=== PATIENT | male | born 1970 | race American Indian/Alaskan Native ===

== ENCOUNTER 2020-01-19 19:32 | Emergency (ER) | payer MEDICAID ==
[2020-01-19] MEDS ORDERED: ONDANSETRON 4 MG ODT TAB PO ONE (21:01)
--- NOTE | 2020-01-19 21:01 | Event Note ---
ED Screening Note Date of service: 01/19/20 Time: 20:57 ED Screening Note: This is a 49 y.o. M. with N/V for 1 week. PMH gout, DM2, CHF, HTN, CKD, and arthritis Unable to keep anything down after eating. This initial assessment/diagnostic orders/clinical plan/treatment(s) is/are subject to change based on patients health status, clinical progression and re- assessment by fellow clinical providers in the ED. Further treatment and workup at subsequent clinical providers discretion. Patient/guardian urged not to elope from the ED as their condition may be serious if not clinically assessed and managed. Initial orders include: Labs Given zofran 4 mg
[2020-01-19 21:37] LABS: Basophils # (Auto) 0.2 K/mm3 (0.0-0.1); Basophils % (Auto) 1.5 % (0.0-1.8); Eosinophils # (Auto) 0.2 K/mm3 (0.0-0.4); Eosinophils % (Auto) 2.2 % (0.0-4.3); Hematocrit 35.7 % (35.5-45.6); Hemoglobin 11.8 gm/dl (11.8-15.2); Lymphocytes # (Auto) 1.3 K/mm3 (1.2-5.4); Lymphocytes % (Auto) 11.9 % (13.4-35.0); Mean Corpuscular HGB Conc 33 % (32-34); Mean Corpuscular Volume 84 fl (84-94); Monocytes # (Auto) 1.6 K/mm3 (0.0-0.8); Monocytes % (Auto) 15.1 % (0.0-7.3); Platelet Count 568 K/mm3 (140-440); Red Blood Count 4.26 M/mm3 (3.65-5.03); Red Cell Distribution Width 18.6 % (13.2-15.2)
[2020-01-19 21:53] LABS: Albumin 4.5 g/dL (3.9-5); Calcium 10.1 mg/dL (8.4-10.2)
--- NOTE | 2020-01-20 07:05 | Emergency Department Report ---
ED General Adult HPI - General Chief complaint: Abdominal Pain Stated complaint: N/V X 1 WEEK Time Seen by Provider: 01/19/20 20:57 Source: patient Mode of arrival: Ambulatory Limitations: No Limitations - History of Present Illness Initial comments: Patient presents to the emergency department with a chief complaint of abdominal pain with nausea vomiting x1 week. Patient states he was recently discharged from [facility] for congestive heart failure and chronic renal disease. Patient denies any chest pain or shortness of breath. -: Gradual Location: abdomen Radiation: non-radiation Severity scale (0 -10): 8 Quality: aching Consistency: constant Improves with: none Worsens with: none Associated Symptoms: denies other symptoms Treatments Prior to Arrival: none - Related Data Previous Rx's Medication Instructions Recorded Last Taken Type Ondansetron [Zofran Odt] 4 mg PO Q4HR PRN #20 tab.rapdis 01/20/20 Unknown Rx Allergies Allergy/AdvReac Type Severity Reaction Status Date / Time No Known Allergies Allergy Unverified 01/19/20 19:36 ED Review of Systems ROS: Stated complaint: N/V X 1 WEEK Other details as noted in HPI Comment: All other systems reviewed and negative Constitutional: denies: chills, fever Eyes: denies: eye pain, eye discharge, vision change ENT: denies: ear pain, throat pain Respiratory: denies: cough, shortness of breath, wheezing Cardiovascular: denies: chest pain, palpitations Endocrine: no symptoms reported Gastrointestinal: abdominal pain. denies: nausea, diarrhea Genitourinary: denies: urgency, dysuria Musculoskeletal: denies: back pain, joint swelling, arthralgia Skin: denies: rash, lesions Neurological: denies: headache, weakness, paresthesias Psychiatric: denies: anxiety, depression Hematological/Lymphatic: denies: easy bleeding, easy bruising ED Past Medical Hx - Past Medical History Previous Medical History?: Yes Hx Hypertension: Yes Hx Congestive Heart Failure: Yes Hx Diabetes: Yes Hx Renal Disease: Yes Hx Arthritis: Yes Additional medical history: Gout, renal problems - Surgical History Past Surgical History?: No - Social History Smoking Status: Never Smoker Substance Use Type: None - Medications Home Medications: Home Medications Medication Instructions Recorded Confirmed Last Taken Type Ondansetron [Zofran Odt] 4 mg PO Q4HR PRN #20 tab.rapdis 01/20/20 Unknown Rx ED Physical Exam - General Limitations: No Limitations General appearance: alert, in no apparent distress - Head Head exam: Present: atraumatic, normocephalic - Eye Eye exam: Present: normal appearance, PERRL, EOMI - ENT ENT exam: Present: mucous membranes moist - Neck Neck exam: Present: normal inspection - Respiratory Respiratory exam: Present: normal lung sounds bilaterally. Absent: respiratory distress - Cardiovascular Cardiovascular Exam: Present: regular rate, normal rhythm. Absent: systolic murmur, diastolic murmur, rubs, gallop - GI/Abdominal GI/Abdominal exam: Present: soft, distended, normal bowel sounds. Absent: tenderness - Rectal Rectal exam: Present: deferred - Extremities Exam Extremities exam: Present: normal inspection, other (Bilateral lower extremity edema) - Back Exam Back exam: Present: normal inspection - Neurological Exam Neurological exam: Present: alert, oriented X3, CN II-XII intact. Absent: motor sensory deficit - Psychiatric Psychiatric exam: Present: normal affect, normal mood - Skin Skin exam: Present: warm, dry, intact, normal color. Absent: rash ED Course Vital Signs 01/19/20 01/20/20 01/20/20 19:36 05:05 08:09 Temperature 98.6 F 97.8 F Pulse Rate 89 84 90 Respiratory 18 22 22 Rate Blood Pressure 143/77 Blood Pressure 143/79 104/49 [Left] O2 Sat by Pulse 100 100 98 Oximetry 01/20/20 12:01 Temperature Pulse Rate 92 H Respiratory 11 L Rate Blood Pressure Blood Pressure 143/76 [Left] O2 Sat by Pulse 100 Oximetry ED Medical Decision Making - Lab Data Result diagrams: 01/19/20 21:04 01/20/20 13:14 Lab Results 01/19/20 01/19/20 01/20/20 Range/Units 21:04 21:04 06:57 WBC 10.5 (4.5-11.0) K/mm3 RBC 4.26 (3.65-5.03) M/mm3 Hgb 11.8 (11.8-15.2) gm/dl Hct 35.7 (35.5-45.6) % MCV 84 (84-94) fl MCH 28 (28-32) pg MCHC 33 (32-34) % RDW 18.6 H (13.2-15.2) % Plt Count 568 H (140-440) K/mm3 Lymph % (Auto) 11.9 L (13.4-35.0) % [place] % (Auto) 15.1 H (0.0-7.3) % Eos % (Auto) 2.2 (0.0-4.3) % Baso % (Auto) 1.5 (0.0-1.8) % Lymph # 1.3 (1.2-5.4) K/mm3 [place] # 1.6 H (0.0-0.8) K/mm3 Eos # 0.2 (0.0-0.4) K/mm3 Baso # 0.2 H (0.0-0.1) K/mm3 Seg Neutrophils % 69.3 (40.0-70.0) % Seg Neutrophils # 7.3 (1.8-7.7) K/mm3 Sodium 127 L (137-145) mmol/L Potassium 5.5 H (3.6-5.0) mmol/L Chloride 85.1 L (98-107) mmol/L Carbon Dioxide 18 L (22-30) mmol/L Anion Gap 29 mmol/L BUN 93 H (9-20) mg/dL Creatinine 3.2 H (0.8-1.5) mg/dL Estimated GFR 21 ml/min BUN/Creatinine Ratio 29 % Glucose 173 H (75-100) mg/dL POC Glucose (70-105) Calcium 10.1 (8.4-10.2) mg/dL Magnesium 2.00 (1.7-2.3) mg/dL Total Bilirubin 0.40 (0.1-1.2) mg/dL AST 16 (5-40) units/L ALT 9 (7-56) units/L Alkaline Phosphatase 78 (35-129) units/L NT-Pro-B Natriuret Pep 213.6 (0-450) pg/mL Total Protein 9.1 H (6.3-8.2) g/dL Albumin 4.5 (3.9-5) g/dL Albumin/Globulin Ratio 1.0 % Urine Color (Yellow) Urine Turbidity (Clear) Urine pH (5.0-7.0) Ur Specific [place] (1.003-1.030) Urine Protein (Negative) mg/dL Urine Glucose (UA) (Negative) mg/dL Urine Ketones (Negative) mg/dL Urine Blood (Negative) Urine Nitrite (Negative) Urine Bilirubin (Negative) Urine Urobilinogen (<2.0) mg/dL Ur Leukocyte Esterase (Negative) Urine WBC (Auto) (0.0-6.0) /HPF Urine RBC (Auto) (0.0-6.0) /HPF U Epithel Cells (Auto) (0-13.0) /HPF Hyaline Casts /LPF Urine Mucus /HPF 01/20/20 01/20/20 01/20/20 Range/Units 07:30 11:26 13:14 WBC (4.5-11.0) K/mm3 RBC (3.65-5.03) M/mm3 Hgb (11.8-15.2) gm/dl Hct (35.5-45.6) % MCV (84-94) fl MCH (28-32) pg MCHC (32-34) % RDW (13.2-15.2) % Plt Count (140-440) K/mm3 Lymph % (Auto) (13.4-35.0) % [place] % (Auto) (0.0-7.3) % Eos % (Auto) (0.0-4.3) % Baso % (Auto) (0.0-1.8) % Lymph # (1.2-5.4) K/mm3 [place] # (0.0-0.8) K/mm3 Eos # (0.0-0.4) K/mm3 Baso # (0.0-0.1) K/mm3 Seg Neutrophils % (40.0-70.0) % Seg Neutrophils # (1.8-7.7) K/mm3 Sodium 129 L (137-145) mmol/L Potassium 4.2 D (3.6-5.0) mmol/L Chloride 87.9 L (98-107) mmol/L Carbon Dioxide 19 L (22-30) mmol/L Anion Gap 26 mmol/L BUN 95 H (9-20) mg/dL Creatinine 3.7 H (0.8-1.5) mg/dL Estimated GFR 21 ml/min BUN/Creatinine Ratio 26 % Glucose 145 H (75-100) mg/dL POC Glucose 141 H (70-105) Calcium 9.2 (8.4-10.2) mg/dL Magnesium (1.7-2.3) mg/dL Total Bilirubin (0.1-1.2) mg/dL AST (5-40) units/L ALT (7-56) units/L Alkaline Phosphatase (35-129) units/L NT-Pro-B Natriuret Pep (0-450) pg/mL Total Protein (6.3-8.2) g/dL Albumin (3.9-5) g/dL Albumin/Globulin Ratio % Urine Color Yellow (Yellow) Urine Turbidity Clear (Clear) Urine pH 5.0 (5.0-7.0) Ur Specific [place] 1.014 (1.003-1.030) Urine Protein 30 mg/dl (Negative) mg/dL Urine Glucose (UA) Neg (Negative) mg/dL Urine Ketones Neg (Negative) mg/dL Urine Blood Neg (Negative) Urine Nitrite Neg (Negative) Urine Bilirubin Neg (Negative) Urine Urobilinogen 2.0 (<2.0) mg/dL Ur Leukocyte Esterase Neg (Negative) Urine WBC (Auto) 1.0 (0.0-6.0) /HPF Urine RBC (Auto) 2.0 (0.0-6.0) /HPF U Epithel Cells (Auto) < 1.0 (0-13.0) /HPF Hyaline Casts 6 /LPF Urine Mucus Few /HPF 03/07/03 Range/Units 13:34 WBC (4.5-11.0) K/mm3 RBC (3.65-5.03) M/mm3 Hgb (11.8-15.2) gm/dl Hct (35.5-45.6) % MCV (84-94) fl MCH (28-32) pg MCHC (32-34) % RDW (13.2-15.2) % Plt Count (140-440) K/mm3 Lymph % (Auto) (13.4-35.0) % [place] % (Auto) (0.0-7.3) % Eos % (Auto) (0.0-4.3) % Baso % (Auto) (0.0-1.8) % Lymph # (1.2-5.4) K/mm3 [place] # (0.0-0.8) K/mm3 Eos # (0.0-0.4) K/mm3 Baso # (0.0-0.1) K/mm3 Seg Neutrophils % (40.0-70.0) % Seg Neutrophils # (1.8-7.7) K/mm3 Sodium (137-145) mmol/L Potassium (3.6-5.0) mmol/L Chloride (98-107) mmol/L Carbon Dioxide (22-30) mmol/L Anion Gap mmol/L BUN (9-20) mg/dL Creatinine (0.8-1.5) mg/dL Estimated GFR ml/min BUN/Creatinine Ratio % Glucose (75-100) mg/dL POC Glucose 156 H (70-105) Calcium (8.4-10.2) mg/dL Magnesium (1.7-2.3) mg/dL Total Bilirubin (0.1-1.2) mg/dL AST (5-40) units/L ALT (7-56) units/L Alkaline Phosphatase (35-129) units/L NT-Pro-B Natriuret Pep (0-450) pg/mL Total Protein (6.3-8.2) g/dL Albumin (3.9-5) g/dL Albumin/Globulin Ratio % Urine Color (Yellow) Urine Turbidity (Clear) Urine pH (5.0-7.0) Ur Specific [place] (1.003-1.030) Urine Protein (Negative) mg/dL Urine Glucose (UA) (Negative) mg/dL Urine Ketones (Negative) mg/dL Urine Blood (Negative) Urine Nitrite (Negative) Urine Bilirubin (Negative) Urine Urobilinogen (<2.0) mg/dL Ur Leukocyte Esterase (Negative) Urine WBC (Auto) (0.0-6.0) /HPF Urine RBC (Auto) (0.0-6.0) /HPF U Epithel Cells (Auto) (0-13.0) /HPF Hyaline Casts /LPF Urine Mucus /HPF - Radiology Data Radiology results: report reviewed Patient given IV fluids and medications for his hyperkalemia which included IV insulin, IV D50, chest fluid, IV sodium bicarb. Laboratory values improved with IV fluids and hyperkalemia medications. Critical Care Time: Yes Critical care time in (mins) excluding proc time.: 35 Critical care attestation.: If time is entered above; I have spent that time in minutes in the direct care of this critically ill patient, excluding procedure time. ED Disposition Clinical Impression: Hyperkalemia, Nausea & vomiting, Abdominal pain, Hyponatremia Disposition: TO HOME OR SELFCARE Is pt being admited?: No Does the pt Need Aspirin: No Condition: Stable Instructions: Hyponatremia (ED), Hyperkalemia (ED), Acute Nausea and Vomiting (ED), Abdominal Pain (ED) Prescriptions: Ondansetron [Zofran Odt] 4 mg PO Q4HR PRN #20 tab.rapdis PRN Reason: Nausea Referrals: PRIMARY CARE, [Primary Care Provider] - 3-5 Days [facility] [Provider Group] - 3-5 Days [facility] [Provider Group] - 3-5 Days Time of Disposition: 14:58
[2020-01-20 07:57] LABS: Bilirubin,Urine NEG (Negative); Blood,Urine NEG (Negative); Color,Urine Yellow (Yellow); Hyaline Casts,Urine 6 /LPF; Mucus,Urine FEW /HPF
--- NOTE | 2020-01-20 08:19 | Cat Scan Report ---
CT abdomen pelvis wo con INDICATION / CLINICAL INFORMATION: MAIN: rlq ab pain x1day has hx of same pain was discharged from another hospital 2days ago. TECHNIQUE: Axial CT imaging of abdomen and pelvis was obtained without contrast. Coronal and sagittal reformatte d imaging obtained and reviewed. All CT scans at this location are performed using CT dose reductio n for ALARA by means of automated exposure control. COMPARISON: None available. FINDINGS: CT abdomen without contrast demonstrates normal appearance of the liver, spleen, pancreas, kidneys, a nd left adrenal gland. there is a 3.4 cm fat-containing mass arising from the right adrenal gland co nsistent with myelolipoma.. No intrarenal calculi or hydronephrosis. There are a few tiny gallstones within the gallbladder. No obvious gallbladder wall thickening or pericholecystic fluid noted. CT pelvis without contrast demonstrates normal appearance of the appendix. No pelvic mass, free fluid , or focal inflammatory changes noted. GI tract is grossly unremarkable. Visualized lung bases are clear. Moderate spondylitic changes noted in the lower lumbar spine. IMPRESSION: 1. No acute abnormality within the abdomen or pelvis. 2. Cholelithiasis, incidentally noted. 3. 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 Signer Name: Yeny Zuñiga MD Signed: 01/20/2020 8:15 AM Workstation Name: [id number]
[2020-01-20] MEDS ORDERED: SODIUM CHLORIDE 0.9% 1000 ML 1,000 ML IV ONE (08:28)
[2020-01-20] MEDS ORDERED: INSULIN REGULAR, HUMAN 100 UNITS/1 ML IV ONE (08:28)
[2020-01-20] MEDS ORDERED: SODIUM POLYSTYRENE 15 GM/60 ML ORAL LIQD PO ONE (08:28)
[2020-01-20] MEDS ORDERED: SODIUM BICARB 8.4% 50 MEQ/50 ML SYRINGE IV ONE (08:29)
[2020-01-20] MEDS ORDERED: DEXTROSE 50% IN WATER (25GM) 50 ML SYRINGE IV ONE (08:29)
[2020-01-20] MEDS ORDERED: SODIUM BICARB 8.4% 50 MEQ/50 ML VIAL IV ONE (10:00)
[2020-01-20] MEDS ORDERED: HYDROcodone/ACETAMINOPHEN 5-325 MG TAB PO ONE (10:17)
[2020-01-20 14:39] LABS: Calcium 9.2 mg/dL (8.4-10.2)
[2020-01-20 15:34] VITALS: BP 141/71
== END 2020-01-20 15:34 | disposition home or self-care (01) ==
LOC: ED 19:32
DX: E87.1 Hypo-osmolality and hyponatremia (principal); E87.5 Hyperkalemia; R11.2 Nausea with vomiting, unspecified; R10.9 Unspecified abdominal pain; I13.10 Hypertensive heart and chronic kidney disease without heart failure, with stage 1 through stage 4 chronic kidney disease, or unspecified chronic kidney disease; E11.22 Type 2 diabetes mellitus with diabetic chronic kidney disease; N18.9 Chronic kidney disease, unspecified; I50.9 Heart failure, unspecified; M10.9 Gout, unspecified; M19.90 Unspecified osteoarthritis, unspecified site; Z79.899 Other long term (current) drug therapy
CPT/HCPCS: 36415; 74176; 80048; 80053; 81001; 82962; 83735; 83880; 85025; 96361; 96374; 96375; 99285; J7030; J1815

== ENCOUNTER 2020-12-22 17:58 | Inpatient (IN) | payer MEDICAID ==
--- NOTE | 2020-12-22 18:34 | Emergency Department Report ---
ED General Adult HPI - General Chief complaint: Neuro Symptoms/Deficit Stated complaint: STROKE Time Seen by Provider: 12/22/20 18:07 Source: EMS Mode of arrival: Ambulatory Limitations: No Limitations - History of Present Illness Initial comments: Patient is a 50-year-old male sent to the ER by his daughter for evaluation of sudden change in mental status. Per daughter, patient was last seen normal at 7:30 AM this morning, at some point today began having difficulty ambulating and speaking, became incontinent. Patient presents unable to provide any of his own history, daughter not present in emergency department. Patient presents as code stroke, consequently requiring my immediate attention. - Related Data Home Medications Medication Instructions Recorded Confirmed Last Taken Aspirin [Aspirin BABY CHEW TAB] 81 mg PO DAILY 12/23/20 12/23/20 Unknown Folic Acid [Folvite] 1 mg PO QDAY 12/23/20 12/23/20 Unknown Insulin Glargine [Lantus VIAL] 25 unit SUB-Q QHS 12/23/20 12/23/20 Unknown Isosorbide Dinitrate [Isordil] 20 mg PO TID 12/23/20 12/23/20 Unknown Lispro Insulin [HumaLOG] 5 unit SQ TID 12/23/20 12/23/20 Unknown Torsemide [Demadex] 100 mg PO QDAY 12/23/20 12/23/20 Unknown allopurinoL [Zyloprim] 100 mg PO QDAY 12/23/20 12/23/20 Unknown carvediloL [Coreg] 6.25 mg PO BID 12/23/20 12/23/20 Unknown hydrALAZINE [Apresoline] 25 mg PO Q8HR 12/23/20 12/23/20 Unknown metFORMIN [Glucophage] 500 mg PO BID 12/23/20 12/23/20 Unknown Allergies Allergy/AdvReac Type Severity Reaction Status Date / Time No Known Allergies Allergy Unverified 01/19/20 19:36 ED Review of Systems ROS: Stated complaint: STROKE Other details as noted in HPI Comment: Unobtainable due to pts medical conditions ED Past Medical Hx - Past Medical History Hx Hypertension: Yes Hx Congestive Heart Failure: Yes Hx Diabetes: Yes Hx Renal Disease: Yes Hx Arthritis: Yes Additional medical history: Gout, renal problems - Social History Smoking Status: Never Smoker Substance Use Type: None - Medications Home Medications: Home Medications Medication Instructions Recorded Confirmed Last Taken Type Aspirin [Aspirin BABY CHEW TAB] 81 mg PO DAILY 12/23/20 12/23/20 Unknown History Folic Acid [Folvite] 1 mg PO QDAY 12/23/20 12/23/20 Unknown History Insulin Glargine [Lantus VIAL] 25 unit SUB-Q QHS 12/23/20 12/23/20 Unknown History Isosorbide Dinitrate [Isordil] 20 mg PO TID 12/23/20 12/23/20 Unknown History Lispro Insulin [HumaLOG] 5 unit SQ TID 12/23/20 12/23/20 Unknown History Torsemide [Demadex] 100 mg PO QDAY 12/23/20 12/23/20 Unknown History allopurinoL [Zyloprim] 100 mg PO QDAY 12/23/20 12/23/20 Unknown History carvediloL [Coreg] 6.25 mg PO BID 12/23/20 12/23/20 Unknown History hydrALAZINE [Apresoline] 25 mg PO Q8HR 12/23/20 12/23/20 Unknown History metFORMIN [Glucophage] 500 mg PO BID 12/23/20 12/23/20 Unknown History ED Physical Exam - General Limitations: Altered Mental Status General appearance: alert, in distress - Head Head exam: Present: atraumatic - Eye Eye exam: Present: normal appearance - Neck Neck exam: Present: normal inspection - Respiratory Respiratory exam: Present: normal lung sounds bilaterally - Cardiovascular Cardiovascular Exam: Present: regular rate - GI/Abdominal GI/Abdominal exam: Present: soft - Rectal Rectal exam: Present: deferred - Extremities Exam Extremities exam: Present: pedal edema - Neurological Exam Neurological exam: Present: alert, altered, other (see NIHSS). Absent: oriented X3 - Psychiatric Psychiatric exam: Present: flat affect - Skin Skin exam: Present: warm, dry ED Course Vital Signs 12/22/20 12/22/20 12/22/20 19:40 19:45 20:00 Temperature 98.2 F Pulse Rate 95 H 96 H 96 H Respiratory 28 H Rate Blood Pressure 124/76 118/78 Blood Pressure 126/78 [Left] O2 Sat by Pulse 100 100 97 Oximetry 12/22/20 12/22/20 12/22/20 20:16 20:30 20:45 Temperature Pulse Rate 98 H 98 H 101 H Respiratory Rate Blood Pressure 118/78 118/79 129/74 Blood Pressure [Left] O2 Sat by Pulse 100 100 97 Oximetry 12/22/20 12/22/20 12/22/20 21:00 21:15 21:30 Temperature Pulse Rate 99 H 103 H 103 H Respiratory Rate Blood Pressure 126/73 124/76 138/82 Blood Pressure [Left] O2 Sat by Pulse 98 99 98 Oximetry 12/22/20 12/22/20 12/22/20 21:46 22:00 22:16 Temperature Pulse Rate Respiratory Rate Blood Pressure 141/80 144/90 131/55 Blood Pressure [Left] O2 Sat by Pulse 100 100 100 Oximetry 12/22/20 12/22/20 12/22/20 22:30 22:46 23:00 Temperature Pulse Rate Respiratory Rate Blood Pressure 134/93 132/86 151/83 Blood Pressure [Left] O2 Sat by Pulse 100 100 100 Oximetry 12/23/20 12/23/20 12/23/20 00:52 00:54 01:00 Temperature Pulse Rate 112 H 112 H 112 H Respiratory 41 H 35 H 42 H Rate Blood Pressure 136/76 136/76 Blood Pressure [Left] O2 Sat by Pulse 100 100 100 Oximetry 12/23/20 12/23/20 12/23/20 02:00 03:00 04:00 Temperature Pulse Rate 106 H 110 H 106 H Respiratory 37 H 38 H 36 H Rate Blood Pressure 157/85 141/66 150/64 Blood Pressure [Left] O2 Sat by Pulse 99 100 100 Oximetry 12/23/20 12/23/20 12/23/20 04:46 05:00 06:00 Temperature Pulse Rate 106 H 106 H 107 H Respiratory 41 H 36 H 36 H Rate Blood Pressure 125/71 138/77 Blood Pressure [Left] O2 Sat by Pulse 100 100 100 Oximetry 12/23/20 12/23/20 12/23/20 07:00 07:26 08:00 Temperature Pulse Rate 112 H 112 H 107 H Respiratory 35 H 37 H 36 H Rate Blood Pressure 122/68 129/72 Blood Pressure 122/68 [Left] O2 Sat by Pulse 100 100 Oximetry 12/23/20 12/23/20 12/23/20 08:47 09:00 10:00 Temperature Pulse Rate 110 H 107 H Respiratory 34 H 37 H Rate Blood Pressure 129/72 Blood Pressure [Left] O2 Sat by Pulse Oximetry - Reevaluation(s) Reevaluation #1: 12/23/20 10:44 CTA discontinued secondary to poor renal function and greater likelihood of symptoms secondary to metabolic dysfunction versus encephalopathy versus infection. Discussed with hospitalist Dr. Bingham correction of sodium and treatment for possible encephalitis/meningitis, will order inpatient medications to correct and cover for meningitis/encephalitis. ED Medical Decision Making - Lab Data Result diagrams: 12/23/20 04:50 12/23/20 04:50 Labs 12/22/20 12/22/20 12/22/20 18:39 18:39 18:39 WBC 23.4 H RBC 3.10 L Hgb 10.2 L Hct 29.9 L MCV 97 H MCH 33 H MCHC 34 RDW 16.7 H Plt Count 308 Add Manual Diff Complete Total Counted 100 Seg Neutrophils % Traveler Changer Seg Neuts % (Manual) 93.0 H Lymphocytes % (Manual) 4.0 L Monocytes % (Manual) 3.0 Nucleated RBC % Not Reportable Seg Neutrophils # Man 21.8 H Band Neutrophils # 0.0 Lymphocytes # (Manual) 0.9 L Abs React Lymphs (Man) 0.0 Monocytes # (Manual) 0.7 Eosinophils # (Manual) 0.0 Basophils # (Manual) 0.0 Metamyelocytes # 0.0 Myelocytes # 0.0 Promyelocytes # 0.0 Blast Cells # 0.0 WBC Morphology Not Reportable Hypersegmented Neuts Not Reportable Hyposegmented Neuts Not Reportable Hypogranular Neuts Not Reportable Smudge Cells Not Reportable Toxic Granulation Not Reportable Toxic Vacuolation Not Reportable Dohle Bodies Not Reportable Pelger-Huet Anomaly Not Reportable Norm Rods Not Reportable Platelet Estimate Not Reportable Clumped Platelets Not Reportable Plt Clumps, EDTA Not Reportable Large Platelets Not Reportable Giant Platelets Not Reportable Platelet Satelliting Not Reportable Plt Morphology Comment Not Reportable RBC Morphology Normal Dimorphic RBCs Not Reportable Polychromasia Not Reportable Hypochromasia Not Reportable Poikilocytosis Not Reportable Anisocytosis Not Reportable Microcytosis Not Reportable Macrocytosis Not Reportable Spherocytes Not Reportable Pappenheimer Bodies Not Reportable Sickle Cells Not Reportable Target Cells Not Reportable Tear Drop Cells Not Reportable Ovalocytes Not Reportable Helmet Cells Not Reportable Rogers-Evans Bodies Not Reportable [place] Rings Not Reportable Morelia Cells Not Reportable Bite Cells Not Reportable Crenated Cell Not Reportable Elliptocytes Not Reportable Acanthocytes (Spur) Not Reportable Rouleaux Not Reportable Hemoglobin C Crystals Not Reportable Schistocytes Not Reportable Malaria parasites Not Reportable Alexei Bodies Not Reportable Hem Pathologist Commnt No PT 14.7 INR 1.15 H APTT 38.8 H Thrombin Time Sodium 119 L* Potassium 5.0 Chloride 86.5 L Carbon Dioxide 21 L Anion Gap 17 BUN 19 Creatinine 3.6 H Estimated GFR 22 BUN/Creatinine Ratio 5 Glucose 84 Calcium 7.3 L Troponin T 0.035 H Triglycerides 121 Cholesterol 92 LDL Cholesterol Direct 10 L HDL Cholesterol 66 H Cholesterol/HDL Ratio 1.39 12/22/20 18:39 WBC RBC Hgb Hct MCV MCH MCHC RDW Plt Count Add Manual Diff Total Counted Seg Neutrophils % Seg Neuts % (Manual) Lymphocytes % (Manual) Monocytes % (Manual) Nucleated RBC % Seg Neutrophils # Man Band Neutrophils # Lymphocytes # (Manual) Abs React Lymphs (Man) Monocytes # (Manual) Eosinophils # (Manual) Basophils # (Manual) Metamyelocytes # Myelocytes # Promyelocytes # Blast Cells # WBC Morphology Hypersegmented Neuts Hyposegmented Neuts Hypogranular Neuts Smudge Cells Toxic Granulation Toxic Vacuolation Dohle Bodies Pelger-Huet Anomaly Norm Rods Platelet Estimate Clumped Platelets Plt Clumps, EDTA Large Platelets Giant Platelets Platelet Satelliting Plt Morphology Comment RBC Morphology Dimorphic RBCs Polychromasia Hypochromasia Poikilocytosis Anisocytosis Microcytosis Macrocytosis Spherocytes Pappenheimer Bodies Sickle Cells Target Cells Tear Drop Cells Ovalocytes Helmet Cells Rogers-Evans Bodies [place] Rings [place] Cells Bite Cells Crenated Cell Elliptocytes Acanthocytes (Spur) Rouleaux Hemoglobin C Crystals Schistocytes Malaria parasites Alexei Bodies Hem Pathologist Commnt PT INR APTT Thrombin Time 16.8 Sodium Potassium Chloride Carbon Dioxide Anion Gap BUN Creatinine Estimated GFR BUN/Creatinine Ratio Glucose Calcium Troponin T Triglycerides Cholesterol LDL Cholesterol Direct HDL Cholesterol Cholesterol/HDL Ratio Vital Signs 12/22/20 12/22/20 12/22/20 19:40 19:45 20:00 Temperature 98.2 F Pulse Rate 95 H 96 H 96 H Respiratory 28 H Rate Blood Pressure 124/76 118/78 Blood Pressure 126/78 [Left] O2 Sat by Pulse 100 100 97 Oximetry 12/22/20 12/22/20 12/22/20 20:16 20:30 20:45 Temperature Pulse Rate 98 H 98 H 101 H Respiratory Rate Blood Pressure 118/78 118/79 129/74 Blood Pressure [Left] O2 Sat by Pulse 100 100 97 Oximetry 12/22/20 12/22/20 12/22/20 21:00 21:15 21:30 Temperature Pulse Rate 99 H 103 H 103 H Respiratory Rate Blood Pressure 126/73 124/76 138/82 Blood Pressure [Left] O2 Sat by Pulse 98 99 98 Oximetry 12/22/20 12/22/20 12/22/20 21:46 22:00 22:16 Temperature Pulse Rate Respiratory Rate Blood Pressure 141/80 144/90 131/55 Blood Pressure [Left] O2 Sat by Pulse 100 100 100 Oximetry 12/22/20 12/22/20 12/22/20 22:30 22:46 23:00 Temperature Pulse Rate Respiratory Rate Blood Pressure 134/93 132/86 151/83 Blood Pressure [Left] O2 Sat by Pulse 100 100 100 Oximetry 12/23/20 12/23/20 12/23/20 00:52 00:54 01:00 Temperature Pulse Rate 112 H 112 H 112 H Respiratory 41 H 35 H 42 H Rate Blood Pressure 136/76 136/76 Blood Pressure [Left] O2 Sat by Pulse 100 100 100 Oximetry 12/23/20 12/23/20 12/23/20 02:00 03:00 04:00 Temperature Pulse Rate 106 H 110 H 106 H Respiratory 37 H 38 H 36 H Rate Blood Pressure 157/85 141/66 150/64 Blood Pressure [Left] O2 Sat by Pulse 99 100 100 Oximetry 12/23/20 12/23/20 12/23/20 04:46 05:00 06:00 Temperature Pulse Rate 106 H 106 H 107 H Respiratory 41 H 36 H 36 H Rate Blood Pressure 125/71 138/77 Blood Pressure [Left] O2 Sat by Pulse 100 100 100 Oximetry 12/23/20 12/23/20 12/23/20 07:00 07:26 08:00 Temperature Pulse Rate 112 H 112 H 107 H Respiratory 35 H 37 H 36 H Rate Blood Pressure 122/68 129/72 Blood Pressure 122/68 [Left] O2 Sat by Pulse 100 100 Oximetry 12/23/20 12/23/20 12/23/20 08:47 09:00 10:00 Temperature Pulse Rate 110 H 107 H Respiratory 34 H 37 H Rate Blood Pressure 129/72 Blood Pressure [Left] O2 Sat by Pulse Oximetry - Radiology Data Radiology results: report reviewed [address] [address] XRay Report Signed Patient: ELOY ESTRADA MR#: [id number] : 1970 Acct:[id number] Age/Sex: 50 / M ADM Date: 12/22/20 Loc: [facility]: DELL BINGHAM MD Ordering Physician: KAYLENE ECHEVARRIA MD Date of Service: 12/22/20 Procedure(s): XR chest 1V ap Accession Number(s): [id number] cc: KAYLENE ECHEVARRIA MD Fluoro Time In Minutes: XR chest 1V ap INDICATION / CLINICAL INFORMATION: Weakness. COMPARISON: None available. FINDINGS: Findings in the chest are accentuated by body habitus and phase of inspiration. SUPPORT DEVICES: None. HEART /PULMONARY VASCULATURE: There is cardiomegaly. Pulmonary vasculature is upper normal LUNGS / PLEURA: Patchy airspace opacity in the right lung base. Left lung base is obscured. No sizable pleural effusion No pneumothorax. ADDITIONAL FINDINGS: No significant additional findings. IMPRESSION: Cardiomegaly with opacity in the right lung base, which may reflect pulmonary edema in the setting of CHF or may reflect atypical infectious or inflammatory pneumonitis. Signer Name: Shahbaz Lema MD Signed: 12/22/2020 8:18 PM Workstation Name: [id number] [address] [address] Cat Scan Report Signed Patient: ELOY ESTRADA MR#: [id number] : 1970 Acct:[id number] Age/Sex: 50 / M ADM Date: 12/22/20 Loc: ED Attending Dr: Ordering Physician: KAYLENE ECHEVARRIA MD Date of Service: 12/22/20 Procedure(s): CT head/brain wo con Accession Number(s): [id number] cc: KAYLENE ECHEVARRIA MD CT head/brain wo con INDICATION / CLINICAL INFORMATION: 50 years Male; neuro deficits <6hrs or sx present upon awakening. TECHNIQUE: Routine CT head without contrast. All CT scans at this location are performed using CT dose reduction for ALARA by means of automated exposure control. COMPARISON: None. FINDINGS: BRAIN / INTRACRANIAL CONTENTS: The motion and beam hardening significantly degrades the image quality despite repeat imaging. However, the ventricular system appears appropriate in size and configuration without significant midline shift at. There is no gross CT evidence of acute intracranial hemorrhage. ORBITS: No significant abnormality of visualized orbits. SINUSES / MASTOIDS: There is notable opacification along the inferior maxillary sinuses bilaterally indicative of a retention cyst or polyps. CRANIOCERVICAL JUNCTION: No significant abnormality. ADDITIONAL FINDINGS: None. IMPRESSION: 1. The study is limited by artifact at. However, there is no gross CT evidence of acute intracranial process. Signer Name: Ricky Florez MD Signed: 12/22/2020 6:30 PM Workstation Name: [id number] Transcribed By: MR Dictated By: Ricky Florez MD Electronically Authenticated By: Ricky Florez MD Signed Date/Time: 12/22/201829 DD/ 26 TD/TT: Critical Care Time: Yes Critical care attestation.: If time is entered above; I have spent that time in minutes in the direct care of this critically ill patient, excluding procedure time. Critical Care Time: 35 ED Disposition Clinical Impression: Encephalopathy Disposition: [id number] OP ADMIT IP TO THIS HOSP Is pt being admited?: Yes Condition: Serious - Assessment Assessment Interval: Baseline - Level of Consciousness 1a. Level of Consciousness: alert/keenly responsive - LOC Questions 1b. LOC Questions: aphasic - LOC Command 1c. LOC Commands: performs tasks correctly - Best Gaze 2. Best Gaze: normal - Visual 3. Visual: no visual loss - Facial Palsy 4. Facial Palsy: normal symmetrical movement - Motor Arm 5a. Motor Arm Left: drift 5b. Motor Arm Right: drift - Motor Leg 6a. Motor Leg Left: drift 6b. Motor Leg Right: drift - Limb Ataxia 7. Limb Ataxia: absent - Sensory 8. Sensory: normal - Best Language 9. Best Language: severe aphasia - Dysarthria 10. Dysarthria: mute/anarrthric - Extinction and Inattention 11. Extinction/Inattention: no abnormality - Scoring Total Score: 10 Stroke Severity: Moderate Stroke
--- NOTE | 2020-12-22 18:35 | Cat Scan Report ---
CT head/brain wo con INDICATION / CLINICAL INFORMATION: 50 years Male; neuro deficits <6hrs or sx present upon awakening. TECHNIQUE: Routine CT head without contrast. All CT scans at this location are performed using CT dos e reduction for ALARA by means of automated exposure control. COMPARISON: None. FINDINGS: BRAIN / INTRACRANIAL CONTENTS: The motion and beam hardening significantly degrades the image quality despite repeat imaging. However, the ventricular system appears appropriate in size and configuratio n without significant midline shift at. There is no gross CT evidence of acute intracranial hemorrhag e. ORBITS: No significant abnormality of visualized orbits. SINUSES / MASTOIDS: There is notable opacification along the inferior maxillary sinuses bilaterally i ndicative of a retention cyst or polyps. CRANIOCERVICAL JUNCTION: No significant abnormality. ADDITIONAL FINDINGS: None. IMPRESSION: 1. The study is limited by artifact at. However, there is no gross CT evidence of acute intracranial process. Signer Name: Ricky Florez MD Signed: 12/22/2020 6:30 PM Workstation Name: [id number]
--- NOTE | 2020-12-22 18:39 | Emergency Department Report ---
ED Neuro Deficit HPI - General Chief Complaint: Neuro Symptoms/Deficit Stated Complaint: STROKE Time Seen by Provider: 12/22/20 18:07 Source: EMS Mode of arrival: Ambulatory Limitations: No Limitations - History of Present Illness Initial Comments: [facility] Date of Service: 12/22/2020 18:05:29 Impression: G93.4 - Encephalopathy, unspecified Comments/Sign-Out: Patient with generalized weakness, not following commands and non-verbal. Suspect this is a toxo-metabolic encephalopathy but aphasia due to stroke is possible. Recommend getting a CTA head and neck to rule out an LVO. Metrics: Last Known Well: Unknown [facility] Notification Time: 12/22/2020 18:04:07 Arrival Time: 12/22/2020 17:58:00 Stamp Time: 12/22/2020 18:05:29 Time First Login Attempt: 12/22/2020 18:08:30 Symptoms: altered mental status NIHSS Start Assessment Time: 12/22/2020 18:17:00 Patient is not a candidate for Alteplase/Activase. Alteplase Medical Decision: 12/22/2020 18:14:35 Patient was not deemed candidate for Alteplase/Activase thrombolytics because of Last Well Known Above 4.[address] head showed no acute hemorrhage or acute core infarct. Lower Likelihood of Large Vessel Occlusion but Following Stat Studies are Recommended CTA Head and Neck. ED Physician notified of diagnostic impression and management plan on 12/22/2020 18:27:00 Our recommendations are outlined below. Recommendations: Activate Stroke Protocol Admission/Order Set Stroke/Telemetry Floor Neuro Checks Bedside Swallow Eval DVT Prophylaxis IV Fluids, Normal Saline Head of Bed 30 Degrees Euglycemia and Avoid Hyperthermia (PRN Acetaminophen) Initiate Aspirin 325 MG Daily Routine Consultation with Inhouse Neurology for Follow up Care Sign Out: Discussed with Emergency Department Provider History of Present Illness: Patient is a 50 year old Male. Patient was brought by EMS for symptoms of altered mental status 50 yo M with history of CHF, CKD, DM and HTN who is presenting with lethargy and speech difficulty. His family noticed at 7:00 this morning he started to be lethargic and weak. He had difficulty with speech. He vomited this morning as well. He has no deficits at baseline. Past Medical History: Hypertension Diabetes Mellitus There is NO history of Stroke Examination: Blood Glucose(69) 1A: Level of Consciousness - Alert; keenly responsive + 0 1B: Ask Month and Age - Aphasic + 2 1C: Blink Eyes & Squeeze Hands - Performs 0 Tasks + 2 2: Test Horizontal Extraocular Movements - Normal + 0 3: Test Visual Sebastian - No Visual Loss + 0 4: Test Facial Palsy (Use Grimace if Obtunded) - Normal symmetry + 0 5A: Test Left Arm Motor Drift - Drift, but doesn't hit bed + 1 5B: Test Right Arm Motor Drift - Drift, but doesn't hit bed + 1 6A: Test Left Leg Motor Drift - No Effort Against Derwood + 3 6B: Test Right Leg Motor Drift - No Effort Against Derwood + 3 7: Test Limb Ataxia (FNF/Heel-Gregorio) - No Ataxia + 0 8: Test Sensation - Normal; No sensory loss + 0 9: Test Language/Aphasia - Severe Aphasia: Fragmentary Expression, Inference Needed, Cannot Identify Materials + 2 10: Test Dysarthria - Severe Dysarthria: Unintelligble Slurring or Out of Proportion to Aphasia + 2 11: Test Extinction/Inattention - No abnormality + 0 NIHSS Score: 16 Due to the immediate potential for life-threatening deterioration due to under lying acute neurologic illness, I spent 45 minutes providing critical care. This time includes time for face to face visit via telemedicine, review of medical records, imaging studies and discussion of findings with providers, the patient and/or family. Dr Pamela Lopez [facility] Case [id number] - Related Data Home Medications: Previous Rx's Medication Instructions Recorded Last Taken Type Ondansetron [Zofran Odt] 4 mg PO Q4HR PRN #20 tab.rapdis 01/20/20 Unknown Rx Allergies/Adverse Reactions: Allergies Allergy/AdvReac Type Severity Reaction Status Date / Time No Known Allergies Allergy Unverified 03/07/20 19:36 ED Review of Systems ROS: Stated complaint: STROKE Other details as noted in HPI ED Past Medical Hx - Past Medical History Hx Hypertension: Yes Hx Congestive Heart Failure: Yes Hx Diabetes: Yes Hx Renal Disease: Yes Hx Arthritis: Yes Additional medical history: Gout, renal problems - Social History Smoking Status: Never Smoker Substance Use Type: None - Medications Home Medications: Home Medications Medication Instructions Recorded Confirmed Last Taken Type Ondansetron [Zofran Odt] 4 mg PO Q4HR PRN #20 tab.rapdis 01/20/20 Unknown Rx ED Neuro Physical Exam - General Limitations: No Limitations Suspected Stroke: No Critical care attestation.: If time is entered above; I have spent that time in minutes in the direct care of this critically ill patient, excluding procedure time. ED Disposition Clinical Impression: Encephalopathy Disposition: OP ADMIT IP TO THIS HOSP Is pt being admited?: Yes Condition: Stable Referrals: PRIMARY CARE, [Primary Care Provider] - 3-5 Days
[2020-12-22 18:57] LABS: Hematocrit 29.9 % (35.5-45.6); Hemoglobin 10.2 gm/dl (11.8-15.2); Mean Corpuscular HGB Conc 34 % (32-34); Mean Corpuscular Volume 97 fl (84-94); Platelet Count 308 K/mm3 (140-440); Red Cell Distribution Width 16.7 % (13.2-15.2)
[2020-12-22] MEDS ORDERED: MIDAZOLAM 5 MG/5 ML INJ MDV IV NR (19:00)
[2020-12-22 19:09] LABS: Calcium 7.3 mg/dL (8.4-10.2)
[2020-12-22 19:15] LABS: INR 1.15 (0.87-1.13)
[2020-12-22 19:16] LABS: Partial Thromboplastin Time 38.8 Sec. (24.2-36.6)
[2020-12-22 19:26] LABS: Chol/HDL Ratio 1.39 %
[2020-12-22] MEDS ORDERED: ACETAMINOPHEN 325 MG TAB PO PRN ×2 (19:29)
[2020-12-22] MEDS ORDERED: SODIUM CHLORIDE 0.9% 1000 ML IV SOLN IV ONE (19:29)
[2020-12-22] MEDS ORDERED: ONDANSETRON 4 MG/2 ML INJ IV PRN (19:29)
--- NOTE | 2020-12-22 19:34 | History and Physical Report ---
History of Present Illness Chief complaint: Unresponsive History of present illness: 50 YO Male with Obesity Hypoventilation Syndrome, HTN, DM, CKD, OA, Gout, CHF presents to ED for evaluation. Pt is confused and lethargic with diminshed cognition and unable to provide history. Patient history applied by EMS staff, ED staff. As per staff the patient family reported that patient has experienced increased weakness and confusion over the past 1 day. EMS was notified and upon arrival the patient was found to be in distress. The patient was found to have a suspected neurologic deficit. A code stroke was called and the patient was subsequently transported to [facility] for further care and evaluation. Patient seen and evaluated in the emergency department. All lab and imaging studies reviewed. The patient was found to have sepsis, toxic metabolic encephalopathy, acute kidney injury, severe hyponatremia, and metabolic acidosis. Patient initiated on sepsis protocol and admitted to [facility]. No further history is ob tainable. No prior admission for review. No medication listed at time of admission for reconciliation. Patient is confused and lethargic the time my evaluation but has a positive gag reflex and is able to protect his airway without difficulty. Past History Past Medical History: diabetes, heart failure, hypertension, renal failure, other (See HPI) Past Surgical History: No surgical history, Other (Reviewed) Social history: single. denies: smoking, alcohol abuse, prescription drug abuse Family history: diabetes, hypertension Medications and Allergies Allergies Allergy/AdvReac Type Severity Reaction Status Date / Time No Known Allergies Allergy Unverified 01/19/20 19:36 Home Medications Medication Instructions Recorded Confirmed Last Taken Type Ondansetron [Zofran Odt] 4 mg PO Q4HR PRN #20 tab.rapdis 01/20/20 Unknown Rx Active Meds: Active Medications Acetaminophen (Acetaminophen 325 Mg Tab) 650 mg PO Q4H PRN PRN Reason: Pain MILD(1-3)/Fever >100.5/HARP Acetaminophen (Acetaminophen 325 Mg Tab) 650 mg PO Q6H PRN PRN Reason: Pain, Mild (1-3) Hydromorphone HCl (Hydromorphone 1 Mg/1 Ml Inj) 0.25 mg IV Q4H PRN PRN Reason: Pain, Moderate (4-6) Acyclovir 1,130 mg/ Sodium (Chloride) 122.6 mls @ 100 mls/hr IV Q8H AGUS; Protocol Ceftriaxone Sodium (Rocephin/Ns 2 Gm/100 Ml) 2 gm in 100 mls @ 200 mls/hr IV Q12H AGUS; Protocol Ondansetron HCl (Ondansetron 4 Mg/2 Ml Inj) 4 mg IV Q8H PRN PRN Reason: Nausea And Vomiting Sodium Chloride (Sodium Chloride 0.9% 10 Ml Flush Syringe) 10 ml IV BID AGUS Sodium Chloride (Sodium Chloride 0.9% 10 Ml Flush Syringe) 10 ml IV PRN PRN PRN Reason: LINE FLUSH Sodium Chloride (Sodium Chloride 0.9% 1000 Ml Iv Soln) 3,400 ml 30 ml/kg (3400 ml) IV ONCE ONE Stop: 12/22/20 19:30 Review of Systems ROS unobtainable: due to mental status Exam - Constitutional General appearance: Present: mild distress - EENT ENT: hearing decreased - Neck Neck: Present: supple - Respiratory Respiratory: bilateral: CTA - Cardiovascular Heart Sounds: Present: S1 & S2. Absent: rub, click - Extremities Extremity abnormal: edema Peripheral Pulses: abnormal (Capillary refill greater than 3.5 seconds) - Abdominal General gastrointestinal: Present: soft, non-tender, non-distended, normal bowel sounds Male genitourinary: Present: normal - Integumentary Integumentary: Present: clear, dry, clammy, decreased turgor - Musculoskeletal Musculoskeletal: generalized weakness - Psychiatric Psychiatric: no appropriate mood/affect, no intact judgment & insight, no memory intact - Neurologic Neurologic: CNII-XII intact, no focal deficits, moves all extremities, no gait normal HEART Score - HEART Score Troponin: Troponin T 0.035 ng/mL (0.00-0.029) H 12/22/20 18:39 Results - Labs CBC & Chem 7: 12/22/20 18:39 12/22/20 18:39 Labs: Abnormal lab results 12/22/20 12/22/20 12/22/20 Range/Units 18:39 18:39 18:39 WBC 23.4 H (4.5-11.0) K/mm3 RBC 3.10 L (3.65-5.03) M/mm3 Hgb 10.2 L (11.8-15.2) gm/dl Hct 29.9 L (35.5-45.6) % MCV 97 H (84-94) fl MCH 33 H (28-32) pg RDW 16.7 H (13.2-15.2) % INR 1.15 H (0.87-1.13) APTT 38.8 H (24.2-36.6) Sec. Sodium 119 L* (137-145) mmol/L Chloride 86.5 L (98-107) mmol/L Carbon Dioxide 21 L (22-30) mmol/L Creatinine 3.6 H (0.8-1.3) mg/dL Calcium 7.3 L (8.4-10.2) mg/dL Troponin T 0.035 H (0.00-0.029) ng/mL LDL Cholesterol Direct 10 L (50-130) mg/dL HDL Cholesterol 66 H (40-59) mg/dL Assessment and Plan - Patient Problems (1) Sepsis Current Visit: Yes Status: Acute Qualifiers: Acute renal failure type: with acute tubular necrosis Plan to address problem: Sepsis protocol: CBC, CMP, IV antibiotic therapy, blood culture, IV fluid resuscitation therapy, monitor urine output every shift, maintain mean arterial pressure greater than or equal to 65, monitor fluid balance, serial lactic acid level. (2) Toxic metabolic encephalopathy Current Visit: Yes Status: Acute Plan to address problem: CT Head, neuro check, seizure precautions, aspiration precautions, treat sepsis (3) Acute kidney injury Current Visit: Yes Status: Acute Plan to address problem: Nephrology team consulted, IV fluid resuscitation therapy, monitor urine output every shift, (4) Hyponatremia syndrome Current Visit: Yes Status: Acute Plan to address problem: IV fluid resuscitation therapy, nephrology team consulted, urine electrolytes, repeat serum sodium (5) Metabolic acidosis Current Visit: Yes Status: Acute Plan to address problem: IV fluid resuscitation therapy, IV bicarbonate therapy, supportive care. (6) DVT prophylaxis Current Visit: Yes Status: Acute Plan to address problem: SCD to bilateral lower extremities while in bed, hold anticoagulation pending results of CT scan head which is pending at the time of admission.
--- NOTE | 2020-12-22 20:23 | XRay Report ---
XR chest 1V ap INDICATION / CLINICAL INFORMATION: Weakness. COMPARISON: None available. FINDINGS: Findings in the chest are accentuated by body habitus and phase of inspiration. SUPPORT DEVICES: None. HEART /PULMONARY VASCULATURE: There is cardiomegaly. Pulmonary vasculature is upper normal LUNGS / PLEURA: Patchy airspace opacity in the right lung base. Left lung base is obscured. No sizabl e pleural effusion No pneumothorax. ADDITIONAL FINDINGS: No significant additional findings. IMPRESSION: Cardiomegaly with opacity in the right lung base, which may reflect pulmonary edema in the setting of CHF or may reflect atypical infectious or inflammatory pneumonitis. Signer Name: Shahbaz Lema MD Signed: 12/22/2020 8:18 PM Workstation Name: [id number]
[2020-12-22 20:25] LABS: Total Cells Counted 100
[2020-12-22 20:26] LABS: RBC Morphology Normal
[2020-12-22] MEDS: cefTRIAXone/NS 2 GM/100 ML 2 GM/100 ML BAG IV SCH (20:35)
[2020-12-22] MEDS ORDERED: SODIUM BICARB 8.4% 50 MEQ/50 ML SYRINGE IV ONE (20:36)
--- NOTE | 2020-12-22 23:49 | Cat Scan Report ---
CT HEAD WITHOUT CONTRAST INDICATION / CLINICAL INFORMATION: Repeat CT Head for Confusion. Neurodeficits. TECHNIQUE: All CT scans at this location are performed using CT dose reduction for ALARA by means of automated exposure control. COMPARISON: None available. FINDINGS: Patient motion artifact through the lower images. HEMORRHAGE: None. EXTRA-AXIAL SPACES: Normal in size and morphology for the patient's age. VENTRICULAR SYSTEM: Normal in size and morphology for the patient's age. CEREBRAL PARENCHYMA: No significant abnormality. No acute territorial infarct. MIDLINE SHIFT / HERNIATION: None. CEREBELLUM / BRAINSTEM: No significant abnormality. ORBITS: Normal as visualized. SOFT TISSUES: No significant abnormality. SKULL: No significant abnormality. PARANASAL SINUSES / MASTOID AIR CELLS: Mucous retention cysts versus polyps in both maxillary sinuses . ADDITIONAL FINDINGS: None. IMPRESSION: 1. No acute intracranial abnormality. Repeat study also has patient motion artifact. Signer Name: Breana German MD Signed: 12/22/2020 11:45 PM Workstation Name: [id number]
[2020-12-23 00:05] LABS: Creatinine,Urine 233.3 mg/dL (0.1-20.0)
[2020-12-23 00:13] LABS: Bilirubin,Urine NEG (Negative); Blood,Urine SM (Negative); Color,Urine Amber (Yellow); Hyaline Casts,Urine 8 /LPF; Mucus,Urine FEW /HPF
[2020-12-23] MEDS: ACYCLOVIR 1,130 MG in SODIUM CHLORIDE 0.9% 100 ML IV SCH ×2 (00:30→12:42)
[2020-12-23] MEDS: HYDROmorphone 1 MG/1 ML INJ IV PRN (04:17)
[2020-12-23 05:08] LABS: Hematocrit 25.5 % (35.5-45.6); Hemoglobin 8.4 gm/dl (11.8-15.2); Mean Corpuscular HGB Conc 33 % (32-34); Mean Corpuscular Volume 98 fl (84-94); Platelet Count 227 K/mm3 (140-440); Red Blood Count 2.61 M/mm3 (3.65-5.03); Red Cell Distribution Width 16.8 % (13.2-15.2)
[2020-12-23 05:24] LABS: Albumin 2.3 g/dL (3.9-5); Calcium 6.4 mg/dL (8.4-10.2)
[2020-12-23 06:18] LABS: Anisocytosis Few; Band Neutrophils # (Manual) 1.3 K/mm3; Burr Cells Rare; Platelet Estimate Consistent w Auto; Target Cells Rare; Total Cells Counted 100
[2020-12-23] MEDS: cefTRIAXone/NS 2 GM/100 ML 2 GM/100 ML BAG IV SCH ×2 (08:36→20:52)
[2020-12-23] MEDS ORDERED: DEXTROSE 50% IN WATER (25GM) 50 ML SYRINGE IV PRN (11:11)
--- NOTE | 2020-12-23 11:17 | Progress Note ---
Assessment and Plan -- Sepsis Likely due to bilateral pneumonia, CXR: Cardiomegaly with opacity in the right lung base, which may reflect pulmonary edema in the setting of CHF or may reflect atypical infectious or inflammatory pneumonitis. Initiated Sepsis protocol: CBC, CMP, IV antibiotic therapy, blood culture, IV fluid resuscitation therapy, monitor urine output every shift, maintain mean arterial pressure greater than or equal to 65, monitor fluid balance, serial lactic acid level. We will also rule out for COVID-19 --COVID-19 PUI, test ordered Continue isolation, continue empiric antibiotic for now -- Toxic metabolic encephalopathy Likely due to sepsis and dehydration CT Head without any acute process, Continue neuro check, seizure precautions, aspiration precautions, treat sepsis -- MARY with vasomotor nephropathy Likely due to sepsis and underlying dehydration Nephrology team consulted, IV fluid resuscitation therapy, monitor urine output every shift, --Hypertension, resume home meds and adjust BP meds as needed --Diabetes mellitus type 2, continue consistent carb diet and SSI -- Hyponatremia syndrome Likely due to dehydration IV fluid resuscitation therapy, nephrology team consulted, repeat serum sodium --Metabolic acidosis Likely due to sepsis and dehydration IV fluid resuscitation therapy, IV bicarbonate therapy as needed, supportive care. -- DVT prophylaxis SCD to bilateral lower extremities while in bed Brief History: The patient is a 50 YO male with history significant for Obesity, HTN, DM type 2, CKD, OA, Gout and CHF with unknown EF who presented to [facility] ED 12/22 for evaluation of AMS. Per family patient has experienced increased weakness and confusion of 1 day duration. Patient was transported thru EMS and suspected for CVA. A code stroke was called. The patient was found to have sepsis with possible pneumonia, toxic metabolic encephalopathy, acute kidney injury, hyponatremia, and metabolic acidosis. Patient initiated on sepsis protocol and admitted to IMCU. Labs on admission was significant for Creat 3.6, BUN 19, Sodium 119, bicarb 21 and wbc 23.4. Daily course: 12/23: Ordered for Covid test, continue Rocephin and Zithromax for now mental status significantly improved we will hold acyclovir for now. Will place on gentle hydration will follow 2D echo. Continue to monitor CBC and BMP. Subjective Date of service: 12/23/20 Interval history: Patient seen and examined. Medical records and medication list reviewed. No acute event overnight noted by the RN. Patient denies any chest pain but has difficulty breathing even on resting. Patient is tolerating diet. Discussed plan of care at bedside with patient. Covid test ordered and pending Objective - Exam Narrative Exam: Limited physical exam due to COVID-19 pandemic to minimize transmission of the disease and to preserve PPE. Vital reviewed and stable. GENERAL: well-developed well-nourished lying on bed appeared to be in no disco mfort. HEENT: Normocephalic. Atraumatic. NECK: Supple. CHEST/LUNGS: breathing nonlabored on N/c. HEART/CARDIOVASCULAR: Heart rate stable on telemetry ABDOMEN: Visibly not distended SKIN: There is no rash NEURO: No focal motor deficit. Follows command. MUSCULOSKELETAL: No joint effusion EXTRIMITY: No swelling, no cyanosis or clubbing. PSYCH: Cooperative. - Constitutional Vitals: Vital Signs - 12hr 12/23/20 12/23/20 12/23/20 00:52 00:54 01:00 Pulse Rate 112 H 112 H 112 H Respiratory 41 H 35 H 42 H Rate Blood Pressure 136/76 136/76 Blood Pressure [Left] O2 Sat by Pulse 100 100 100 Oximetry 12/23/20 12/23/20 12/23/20 02:00 03:00 04:00 Pulse Rate 106 H 110 H 106 H Respiratory 37 H 38 H 36 H Rate Blood Pressure 157/85 141/66 150/64 Blood Pressure [Left] O2 Sat by Pulse 99 100 100 Oximetry 12/23/20 12/23/20 12/23/20 04:46 05:00 06:00 Pulse Rate 106 H 106 H 107 H Respiratory 41 H 36 H 36 H Rate Blood Pressure 125/71 138/77 Blood Pressure [Left] O2 Sat by Pulse 100 100 100 Oximetry 12/23/20 12/23/20 12/23/20 07:00 07:26 08:00 Pulse Rate 112 H 112 H 107 H Respiratory 35 H 37 H 36 H Rate Blood Pressure 122/68 129/72 Blood Pressure 122/68 [Left] O2 Sat by Pulse 100 100 Oximetry 12/23/20 12/23/20 12/23/20 08:47 09:00 10:00 Pulse Rate 110 H 107 H Respiratory 34 H 37 H Rate Blood Pressure 129/72 Blood Pressure [Left] O2 Sat by Pulse Oximetry - Labs CBC & Chem 7: 12/25/20 04:26 12/25/20 04:26 Labs: Abnormal lab results 12/22/20 12/22/20 12/22/20 Range/Units 18:39 18:39 18:39 WBC 23.4 H (4.5-11.0) K/mm3 RBC 3.10 L (3.65-5.03) M/mm3 Hgb 10.2 L (11.8-15.2) gm/dl Hct 29.9 L (35.5-45.6) % MCV 97 H (84-94) fl MCH 33 H (28-32) pg RDW 16.7 H (13.2-15.2) % Seg Neuts % (Manual) 93.0 H (40.0-70.0) % Lymphocytes % (Manual) 4.0 L (13.4-35.0) % Seg Neutrophils # Man 21.8 H (1.8-7.7) K/mm3 Lymphocytes # (Manual) 0.9 L (1.2-5.4) K/mm3 INR 1.15 H (0.87-1.13) APTT 38.8 H (24.2-36.6) Sec. ABG pH (7.320-7.450) POC ABG pCO2 (32.0-48.0) mmHg POC ABG pO2 (83-108) mmHg ABG Hemoglobin (12.0-17.5) ABG Sodium (136.0-145.0) mmol/L ABG Chloride (98-107) mmol/L Sodium 119 L* (137-145) mmol/L Chloride 86.5 L (98-107) mmol/L Carbon Dioxide 21 L (22-30) mmol/L BUN (9-20) mg/dL Creatinine 3.6 H (0.8-1.3) mg/dL Glucose (75-100) mg/dL POC Glucose (70-105) mg/dL Lactic Acid (0.7-2.0) mmol/L Calcium 7.3 L (8.4-10.2) mg/dL Troponin T 0.035 H (0.00-0.029) ng/mL Total Protein (6.3-8.2) g/dL Albumin (3.9-5) g/dL LDL Cholesterol Direct 10 L (50-130) mg/dL HDL Cholesterol 66 H (40-59) mg/dL Arterial Blood Ionized Calcium (4.6-5.3) mg/dL Urine Creatinine (0.1-20.0) mg/dL 12/22/20 12/22/20 12/23/20 Range/Units 19:36 23:18 00:00 WBC (4.5-11.0) K/mm3 RBC (3.65-5.03) M/mm3 Hgb (11.8-15.2) gm/dl Hct (35.5-45.6) % MCV (84-94) fl MCH (28-32) pg RDW (13.2-15.2) % Seg Neuts % (Manual) (40.0-70.0) % Lymphocytes % (Manual) (13.4-35.0) % Seg Neutrophils # Man (1.8-7.7) K/mm3 Lymphocytes # (Manual) (1.2-5.4) K/mm3 INR (0.87-1.13) APTT (24.2-36.6) Sec. ABG pH (7.320-7.450) POC ABG pCO2 (32.0-48.0) mmHg POC ABG pO2 (83-108) mmHg ABG Hemoglobin (12.0-17.5) ABG Sodium (136.0-145.0) mmol/L ABG Chloride (98-107) mmol/L Sodium (137-145) mmol/L Chloride (98-107) mmol/L Carbon Dioxide (22-30) mmol/L BUN (9-20) mg/dL Creatinine (0.8-1.3) mg/dL Glucose (75-100) mg/dL POC Glucose (70-105) mg/dL Lactic Acid 3.40 H* 4.70 H* (0.7-2.0) mmol/L Calcium (8.4-10.2) mg/dL Troponin T (0.00-0.029) ng/mL Total Protein (6.3-8.2) g/dL Albumin (3.9-5) g/dL LDL Cholesterol Direct (50-130) mg/dL HDL Cholesterol (40-59) mg/dL Arterial Blood Ionized Calcium (4.6-5.3) mg/dL Urine Creatinine 233.3 H (0.1-20.0) mg/dL 12/23/20 12/23/20 12/23/20 Range/Units 00:00 00:23 04:50 WBC 16.5 H (4.5-11.0) K/mm3 RBC 2.61 L (3.65-5.03) M/mm3 Hgb 8.4 L (11.8-15.2) gm/dl Hct 25.5 L (35.5-45.6) % MCV 98 H (84-94) fl MCH (28-32) pg RDW 16.8 H (13.2-15.2) % Seg Neuts % (Manual) 83.0 H (40.0-70.0) % Lymphocytes % (Manual) 4.0 L (13.4-35.0) % Seg Neutrophils # Man 13.7 H (1.8-7.7) K/mm3 Lymphocytes # (Manual) 0.7 L (1.2-5.4) K/mm3 INR (0.87-1.13) APTT (24.2-36.6) Sec. ABG pH 7.484 H (7.320-7.450) POC ABG pCO2 24.9 L (32.0-48.0) mmHg POC ABG pO2 80.9 L (83-108) mmHg ABG Hemoglobin 10.4 L (12.0-17.5) ABG Sodium 123.4 L (136.0-145.0) mmol/L ABG Chloride 95.0 L (98-107) mmol/L Sodium 126 L D (137-145) mmol/L Chloride (98-107) mmol/L Carbon Dioxide (22-30) mmol/L BUN (9-20) mg/dL Creatinine (0.8-1.3) mg/dL Glucose (75-100) mg/dL POC Glucose (70-105) mg/dL Lactic Acid (0.7-2.0) mmol/L Calcium (8.4-10.2) mg/dL Troponin T (0.00-0.029) ng/mL Total Protein (6.3-8.2) g/dL Albumin (3.9-5) g/dL LDL Cholesterol Direct (50-130) mg/dL HDL Cholesterol (40-59) mg/dL Arterial Blood Ionized Calcium 3.7 L (4.6-5.3) mg/dL Urine Creatinine (0.1-20.0) mg/dL 12/23/20 12/23/20 Range/Units 04:50 09:44 WBC (4.5-11.0) K/mm3 RBC (3.65-5.03) M/mm3 Hgb (11.8-15.2) gm/dl Hct (35.5-45.6) % MCV (84-94) fl MCH (28-32) pg RDW (13.2-15.2) % Seg Neuts % (Manual) (40.0-70.0) % Lymphocytes % (Manual) (13.4-35.0) % Seg Neutrophils # Man (1.8-7.7) K/mm3 Lymphocytes # (Manual) (1.2-5.4) K/mm3 INR (0.87-1.13) APTT (24.2-36.6) Sec. ABG pH (7.320-7.450) POC ABG pCO2 (32.0-48.0) mmHg POC ABG pO2 (83-108) mmHg ABG Hemoglobin (12.0-17.5) ABG Sodium (136.0-145.0) mmol/L ABG Chloride (98-107) mmol/L Sodium 126 L (137-145) mmol/L Chloride 95.6 L (98-107) mmol/L Carbon Dioxide 17 L (22-30) mmol/L BUN 26 H (9-20) mg/dL Creatinine 3.1 H (0.8-1.3) mg/dL Glucose 73 L (75-100) mg/dL POC Glucose 61 L (70-105) mg/dL Lactic Acid (0.7-2.0) mmol/L Calcium 6.4 L (8.4-10.2) mg/dL Troponin T (0.00-0.029) ng/mL Total Protein 5.9 L (6.3-8.2) g/dL Albumin 2.3 L (3.9-5) g/dL LDL Cholesterol Direct (50-130) mg/dL HDL Cholesterol (40-59) mg/dL Arterial Blood Ionized Calcium (4.6-5.3) mg/dL Urine Creatinine (0.1-20.0) mg/dL HEART Score - HEART Score Troponin: Troponin T 0.035 ng/mL (0.00-0.029) H 12/22/20 18:39
[2020-12-23] MEDS ORDERED: SODIUM CHLORIDE 0.9% 1000 ML 1,000 ML IV SCH (11:30)
--- NOTE | 2020-12-23 11:34 | Consultation ---
History of Present Illness - Reason for Consult Consult date: 12/23/20 acute renal failure, chronic renal failure - History of Present Illness The patient is a 50 YO male with history significant for Obesity, HTN, DM type 2, CKD, OA, Gout and CHF who presented to [facility] ED 12/22 for evaluation of AMS. History limited as patient was on BIPAP at the time of evaluation. Per family patient has experienced increased weakness and confusion of 1 day duration. Patient was transported thru EMS and suspected of CVA. A code stroke was called. The patient was found to have sepsis, toxic metabolic encephalopathy, acute kidney injury, hyponatremia, and metabolic acidosis. Patient initiated on sepsis protocol and admitted to IM. Labs significant for Creat 3.6, BUN 19, Sodium 119, bicarb 21 and wbc 23.4. Nephrology was consulted for further evaluation. Past History Past Medical History: diabetes, heart failure, hypertension, renal failure, other (See HPI) Past Surgical History: No surgical history, Other (Reviewed) Social history: single. denies: smoking, alcohol abuse, prescription drug abuse Family history: diabetes, hypertension Medications and Allergies Allergies Allergy/AdvReac Type Severity Reaction Status Date / Time No Known Allergies Allergy Unverified 01/19/20 19:36 Home Medications Medication Instructions Recorded Confirmed Last Taken Type Aspirin [Aspirin BABY CHEW TAB] 81 mg PO DAILY 12/23/20 12/23/20 Unknown History Folic Acid [Folvite] 1 mg PO QDAY 12/23/20 12/23/20 Unknown History Insulin Glargine [Lantus VIAL] 25 unit SUB-Q QHS 12/23/20 12/23/20 Unknown History Isosorbide Dinitrate [Isordil] 20 mg PO TID 12/23/20 12/23/20 Unknown History Lispro Insulin [HumaLOG] 5 unit SQ TID 12/23/20 12/23/20 Unknown History Torsemide [Demadex] 100 mg PO QDAY 12/23/20 12/23/20 Unknown History allopurinoL [Zyloprim] 100 mg PO QDAY 12/23/20 12/23/20 Unknown History carvediloL [Coreg] 6.25 mg PO BID 12/23/20 12/23/20 Unknown History hydrALAZINE [Apresoline] 25 mg PO Q8HR 12/23/20 12/23/20 Unknown History metFORMIN [Glucophage] 500 mg PO BID 12/23/20 12/23/20 Unknown History Active Meds: Active Medications Acetaminophen (Acetaminophen 325 Mg Tab) 650 mg PO Q4H PRN PRN Reason: Pain MILD(1-3)/Fever >100.5/HARP Dextrose (Dextrose 50% In Water (25gm) 50 Ml Syringe) 50 ml IV Q30MIN PRN; Protocol PRN Reason: Hypoglycemia Hydromorphone HCl (Hydromorphone 1 Mg/1 Ml Inj) 0.25 mg IV Q4H PRN PRN Reason: Pain, Moderate (4-6) Last Admin: 12/23/20 04:17 Dose: 0.25 mg Documented by: Ceftriaxone Sodium (Rocephin/Ns 2 Gm/100 Ml) 2 gm in 100 mls @ 200 mls/hr IV Q12H AGUS; Protocol Last Admin: 12/23/20 08:36 Dose: 200 mls/hr Documented by: Azithromycin (Zithromax/Ns) 500 mg in 250 mls @ 250 mls/hr IV Q24H AGUS Sodium Chloride (Nacl 0.9% 1000 Ml) 1,000 mls @ 100 mls/hr IV DIRECT AGUS Ondansetron HCl (Ondansetron 4 Mg/2 Ml Inj) 4 mg IV Q8H PRN PRN Reason: Nausea And Vomiting Sodium Chloride (Sodium Chloride 0.9% 10 Ml Flush Syringe) 10 ml IV BID [facility] Last Admin: 12/23/20 11:30 Dose: 10 ml Documented by: Sodium Chloride (Sodium Chloride 0.9% 10 Ml Flush Syringe) 10 ml IV PRN PRN PRN Reason: LINE FLUSH Review of Systems ROS unobtainable: due to mental status (on BIPAP) Exam - Vital Signs Vital signs: Vital Signs Temp Pulse Resp BP Pulse Ox 98.2 F 95 H 28 H 126/78 100 12/22/20 19:40 12/22/20 19:40 12/22/20 19:40 12/22/20 19:40 12/22/20 19:40 Results - Lab Results 12/23/20 04:50 12/23/20 12:04 Most recent lab results ABG pH 7.484 (7.320-7.450) H 12/23/20 00:23 Calcium 6.4 mg/dL (8.4-10.2) L 12/23/20 04:50 Urine Creatinine 233.3 mg/dL (0.1-20.0) H 12/22/20 23:18 Urine Sodium 32 mmol/L 12/22/20 23:18 Assessment and Plan 1. Acute kidney injury: Vasomotor MARY superimposed on CKD. Low FeNa. Renal US ordered. Monitor renal function. Creatinine level is better today. Avoid nephrotoxic agents. Meds dosage based on GFR. 2. FEN: Metabolic acidosis, improving, monitor. Hyponatremia, improving, monitor. Monitor lytes. 3. Acute respiratory failure: CXR showed right lung base opacity. COVID-19 test pending. On BIPAP, wean as tolerated. 4. Sepsis: 2/2 PNA. Continue Abx and follow culture results. 5. Toxic metabolic encephalopathy: Improving. 6. Anemia, POA: Monitor. 7. DM type 2: Monitor blood glucose. 8. Hypertension: Monitor. Subjective: Patient was seen and examined at the bedside. Examination: General appearance: well-developed, appears stated age, obese, on BIPAP HEENT: ATNC, Pupils equal Neck: Trachea midline Respiratory: ctab Cardiology: regular, S1S2, no murmur Gastrointestinal: normoactive bowel sounds, no tenderness, not distended, obese Integumentary: warm and dry, scattered papules, LE chronic changes Neurologic: somnolent, follows command, oriented Ext: trace edema
[2020-12-23] MEDS ORDERED: D5W/0.9% NACL 1,000 ML IV SCH (12:00)
[2020-12-23] MEDS ORDERED: ACYCLOVIR 1,130 MG in SODIUM CHLORIDE 0.9% 100 ML IV SCH (12:00)
[2020-12-23] MEDS: AZITHROMYCIN/NS 500 MG/250 ML 500 MG/250 ML BAG IV SCH (12:06)
[2020-12-23 12:49] LABS: Calcium 6.7 mg/dL (8.4-10.2)
[2020-12-23] MEDS ORDERED: DEXAMETHASONE 4 MG TAB PO NR (14:31)
[2020-12-23] MEDS: IPRATROPIUM/ALBUTEROL SULFATE 3 ML AMPUL.NEB IH SCH (16:19)
--- NOTE | 2020-12-23 18:02 | Vascular Lab Report ---
DUPLEX DOPPLER LOWER EXTREMITY VEINS, BILATERAL INDICATION / CLINICAL INFORMATION: possible dvt. Sepsis, encephalopathy. TECHNIQUE: Duplex doppler imaging was performed through the veins of both lower extremities using venous mayra jannette and other maneuvers. COMPARISON: None available. FINDINGS: RIGHT COMMON FEMORAL VEIN: Negative. RIGHT FEMORAL VEIN: Negative. RIGHT POPLITEAL VEIN: Negative. RIGHT CALF VEINS: Negative. LEFT COMMON FEMORAL VEIN: Negative. LEFT FEMORAL VEIN: Negative. LEFT POPLITEAL VEIN: Negative. LEFT CALF VEINS: Negative. ADDITIONAL FINDINGS: None. IMPRESSION: 1. No sonographic evidence for DVT in either lower extremity. Signer Name: Jamie Puentes MD Signed: 12/23/2020 5:58 PM Workstation Name: [id number]
[2020-12-23] MEDS: ISOSORBIDE DINITRATE 20 MG TAB PO SCH (20:51)
[2020-12-23] MEDS: hydrALAZINE 25 MG TAB PO SCH (22:25)
[2020-12-23] MEDS: carvediloL 6.25 MG TAB PO SCH (22:30)
[2020-12-24] MEDS: HYDROmorphone 1 MG/1 ML INJ IV PRN (03:40)
[2020-12-24] MEDS: IPRATROPIUM/ALBUTEROL SULFATE 3 ML AMPUL.NEB IH SCH ×5 (03:40→20:21)
[2020-12-24 06:47] LABS: Basophils # (Auto) 0.1 K/mm3 (0.0-0.1); Basophils % (Auto) 0.5 % (0.0-1.8); Eosinophils # (Auto) 0.1 K/mm3 (0.0-0.4); Eosinophils % (Auto) 0.5 % (0.0-4.3); Hematocrit 22.7 % (35.5-45.6); Hemoglobin 7.5 gm/dl (11.8-15.2); Lymphocytes # (Auto) 0.6 K/mm3 (1.2-5.4); Lymphocytes % (Auto) 3.8 % (13.4-35.0); Mean Corpuscular HGB Conc 33 % (32-34); Mean Corpuscular Volume 97 fl (84-94); Monocytes % (Auto) 6.6 % (0.0-7.3); Platelet Count 221 K/mm3 (140-440); Red Blood Count 2.34 M/mm3 (3.65-5.03); Red Cell Distribution Width 16.7 % (13.2-15.2)
[2020-12-24 06:50] LABS: Calcium 6.5 mg/dL (8.4-10.2)
[2020-12-24] MEDS: hydrALAZINE 25 MG TAB PO SCH ×3 (06:56→22:00)
[2020-12-24] MEDS: cefTRIAXone/NS 2 GM/100 ML 2 GM/100 ML BAG IV SCH (08:35)
[2020-12-24] MEDS: ISOSORBIDE DINITRATE 20 MG TAB PO SCH ×3 (08:35→21:56)
[2020-12-24] MEDS: carvediloL 6.25 MG TAB PO SCH ×2 (09:39→22:00)
[2020-12-24] MEDS: ASPIRIN 81 MG TAB CHEW PO SCH (09:39)
[2020-12-24] MEDS: allopurinoL 100 MG TAB PO SCH (09:39)
[2020-12-24] MEDS: FOLIC ACID 1 MG TAB PO SCH (09:40)
--- NOTE | 2020-12-24 10:14 | Progress Note ---
Assessment and Plan 1. Acute kidney injury: Vasomotor MARY superimposed on CKD. Low FeNa. Renal US ordered. Monitor renal function. Creatinine level is improving. Avoid nephrotoxic agents. Meds dosage based on GFR. 2. FEN: Metabolic acidosis, improving, monitor. Hyponatremia, improving, monitor. Monitor lytes. 3. Acute respiratory failure: CXR showed right lung base opacity. Patient positive for COVID-19 test. Was on BIPAP. Decadron. 4. Sepsis: 2/2 PNA. Continue Abx and follow culture results. 5. Toxic metabolic encephalopathy: Improved. 6. Anemia, POA: Monitor. 7. DM type 2: Monitor blood glucose. 8. Hypertension: Monitor. Subjective: Patient was seen and examined at the bedside. Doing ok. Examination: General appearance: well-developed, appears stated age, obese, on RA HEENT: ATNC, Pupils equal Neck: Trachea midline Respiratory: ctab Cardiology: regular, S1S2, no murmur Gastrointestinal: normoactive bowel sounds, no tenderness, not distended, obese Integumentary: warm and dry, scattered eczema, LE chronic changes Neurologic: AO, able to move extremities Ext: trace LE edema Subjective Date of service: 12/24/20 Objective - Vital Signs Vital signs: Vital Signs - 12hr 12/23/20 12/23/20 12/23/20 22:25 22:30 22:48 Temperature Pulse Rate 92 H 100 H 91 H Respiratory 17 Rate Blood Pressure 141/64 141/72 92/59 O2 Sat by Pulse 96 Oximetry 12/23/20 12/23/20 12/24/20 23:00 23:36 00:00 Temperature Pulse Rate 91 H 99 H 91 H Respiratory 33 H 21 36 H Rate Blood Pressure 122/72 122/72 132/74 O2 Sat by Pulse 100 100 100 Oximetry 12/24/20 12/24/20 12/24/20 01:00 02:00 03:00 Temperature Pulse Rate 93 H 94 H 95 H Respiratory 31 H 34 H 41 H Rate Blood Pressure 132/77 128/75 143/72 O2 Sat by Pulse 100 100 100 Oximetry 12/24/20 12/24/20 12/24/20 04:00 05:00 06:00 Temperature Pulse Rate 96 H 92 H 93 H Respiratory 33 H 33 H 27 H Rate Blood Pressure 142/71 135/65 130/63 O2 Sat by Pulse 100 100 100 Oximetry 12/24/20 12/24/20 12/24/20 06:56 07:00 08:35 Temperature Pulse Rate 92 H 89 85 Respiratory 32 H Rate Blood Pressure 130/63 133/84 126/75 O2 Sat by Pulse 100 Oximetry 12/24/20 12/24/20 12/24/20 08:44 09:30 09:39 Temperature 98.2 F Pulse Rate 88 Respiratory Rate Blood Pressure 117/70 O2 Sat by Pulse 98 Oximetry - Lab 12/24/20 05:34 12/24/20 05:34 Most recent lab results ABG pH 7.484 (7.320-7.450) H 12/23/20 00:23 Calcium 6.5 mg/dL (8.4-10.2) L 12/24/20 05:34 Urine Creatinine 233.3 mg/dL (0.1-20.0) H 12/22/20 23:18 Urine Sodium 32 mmol/L 12/22/20 23:18 Medications & Allergies - Medications Allergies/Adverse Reactions: Allergies No Known Allergies Allergy (Unverified 01/19/20 19:36) Home Medications: Home Medications Medication Instructions Recorded Confirmed Last Taken Type Aspirin [Aspirin BABY CHEW TAB] 81 mg PO DAILY 12/23/20 12/23/20 Unknown History Folic Acid [Folvite] 1 mg PO QDAY 12/23/20 12/23/20 Unknown History Insulin Glargine [Lantus VIAL] 25 unit SUB-Q QHS 12/23/20 12/23/20 Unknown History Isosorbide Dinitrate [Isordil] 20 mg PO TID 12/23/20 12/23/20 Unknown History Lispro Insulin [HumaLOG] 5 unit SQ TID 12/23/20 12/23/20 Unknown History Torsemide [Demadex] 100 mg PO QDAY 12/23/20 12/23/20 Unknown History allopurinoL [Zyloprim] 100 mg PO QDAY 12/23/20 12/23/20 Unknown History carvediloL [Coreg] 6.25 mg PO BID 12/23/20 12/23/20 Unknown History hydrALAZINE [Apresoline] 25 mg PO Q8HR 12/23/20 12/23/20 Unknown History metFORMIN [Glucophage] 500 mg PO BID 12/23/20 12/23/20 Unknown History Active Medications: Generic Name Dose Route Start Last Admin Trade Name Freq PRN Reason Stop Dose Admin Acetaminophen 650 mg 12/22/20 19:29 12/23/20 19:52 Acetaminophen 325 Mg Tab PO 650 mg Q4H PRN Administration Pain MILD(1-3)/Fever >100.5/HARP Albuterol/Ipratropium 1 ampul 12/23/20 15:00 12/24/20 04:01 Ipratropium/Albuterol Sulfate 3 Ml Ampul.Neb IH Not Given Q6HRT AGUS Allopurinol 100 mg 12/24/20 10:00 12/24/20 09:39 Allopurinol 100 Mg Tab PO 100 mg QDAY AGUS Administration Aspirin 81 mg 12/24/20 10:00 12/24/20 09:39 Aspirin 81 Mg Tab Chew PO 81 mg DAILY AGUS Administration Carvedilol 6.25 mg 12/23/20 22:00 12/24/20 09:39 Carvedilol 6.25 Mg Tab PO 6.25 mg BID AGUS Administration Dextrose 50 ml 12/23/20 11:11 Dextrose 50% In Water (25gm) 50 Ml Syringe IV Q30MIN PRN Hypoglycemia Protocol Folic Acid 1 mg 12/24/20 10:00 12/24/20 09:40 Folic Acid 1 Mg Tab PO 1 mg QDAY AGUS Administration Hydralazine HCl 25 mg 12/23/20 22:00 12/24/20 06:56 Hydralazine 25 Mg Tab PO 25 mg Q8HR AGUS Administration Hydromorphone HCl 0.25 mg 12/22/20 19:29 12/24/20 03:40 Hydromorphone 1 Mg/1 Ml Inj IV 0.25 mg Q4H PRN Administration Pain, Moderate (4-6) Azithromycin 500 mg in 250 mls @ 250 mls/hr 12/23/20 12:00 12/23/20 12:06 Zithromax/Ns IV 250 mls/hr Q24H AGUS Administration Sodium Chloride 1,000 mls @ 50 mls/hr 12/23/20 11:30 Nacl 0.9% 1000 Ml IV DIRECT AGUS Ceftriaxone Sodium 2 gm in 100 mls @ 200 mls/hr 12/24/20 08:00 12/24/20 08:35 Rocephin/Ns 2 Gm/100 Ml IV 200 mls/hr Q24H AGUS Administration Protocol Isosorbide Dinitrate 20 mg 12/23/20 20:00 12/24/20 08:35 Isosorbide Dinitrate 20 Mg Tab PO 20 mg TID AGUS Administration Ondansetron HCl 4 mg 12/22/20 19:29 12/23/20 16:45 Ondansetron 4 Mg/2 Ml Inj IV 4 mg Q8H PRN Administration Nausea And Vomiting Sodium Chloride 10 ml 12/22/20 22:00 12/24/20 09:42 Sodium Chloride 0.9% 10 Ml Flush Syringe IV 10 ml BID AGUS Administration Sodium Chloride 10 ml 12/22/20 19:29 Sodium Chloride 0.9% 10 Ml Flush Syringe IV PRN PRN LINE FLUSH
[2020-12-24] MEDS: AZITHROMYCIN/NS 500 MG/250 ML 500 MG/250 ML BAG IV SCH (13:00)
--- NOTE | 2020-12-24 14:51 | Progress Note ---
Assessment and Plan -- Sepsis Likely due to bilateral pneumonia, CXR: Cardiomegaly with opacity in the right lung base, which may reflect pulmonary edema in the setting of CHF or may reflect atypical infectious or inflammatory pneumonitis. Initiated Sepsis protocol: CBC, CMP, IV antibiotic therapy, blood culture, IV fluid resuscitation therapy, monitor urine output every shift, maintain mean arterial pressure greater than or equal to 65, monitor fluid balance, serial lactic acid level. We will also rule out for COVID-19 --COVID-19 PUI, test ordered Continue isolation, continue empiric antibiotic for now -- Toxic metabolic encephalopathy Likely due to sepsis and dehydration CT Head without any acute process, Continue neuro check, seizure precautions, aspiration precautions, treat sepsis -- MARY with vasomotor nephropathy Likely due to sepsis and underlying dehydration Nephrology team consulted, IV fluid resuscitation therapy, monitor urine output every shift, --Hypertension, resume home meds and adjust BP meds as needed --Diabetes mellitus type 2, continue consistent carb diet and SSI -- Hyponatremia syndrome Likely due to dehydration IV fluid resuscitation therapy, nephrology team consulted, repeat serum sodium --Metabolic acidosis Likely due to sepsis and dehydration IV fluid resuscitation therapy, IV bicarbonate therapy as needed, supportive care. -- DVT prophylaxis SCD to bilateral lower extremities while in bed Brief History: The patient is a 50 YO male with history significant for Obesity, HTN, DM type 2, CKD, OA, Gout and CHF with unknown EF who presented to [facility] ED 12/22 for evaluation of AMS. Per family patient has experienced increased weakness and confusion of 1 day duration. Patient was transported thru EMS and suspected for CVA. A code stroke was called. The patient was found to have sepsis with possible pneumonia, toxic metabolic encephalopathy, acute kidney injury, hyponatremia, and metabolic acidosis. Patient initiated on sepsis protocol and admitted to IMCU. Labs on admission was significant for Creat 3.6, BUN 19, Sodium 119, bicarb 21 and wbc 23.4. Daily course: 12/23: Ordered for Covid test, continue Rocephin and Zithromax for now mental status significantly improved we will hold acyclovir for now. Will place on gentle hydration will follow 2D echo. Continue to monitor CBC and BMP. 12/24: COVID-19 test result pending, 2D echo pending. Renal function improved. Sodium level also improving. Continue gentle hydration, continue IV a ntibiotics. Follow clinically. Patient on 4 L nasal cannula -wean off as tolerated. Subjective Date of service: 12/24/20 Interval history: Patient seen and examined. Medical records and medication list reviewed. No acute event overnight noted by the RN. Patient denies any chest pain but remains on 4 L nasal cannula. Patient is tolerating diet. Discussed plan of care at bedside with patient. Covid test ordered and still pending Objective - Exam Narrative Exam: Limited physical exam due to COVID-19 pandemic to minimize transmission of the disease and to preserve PPE. Vital reviewed and stable. GENERAL: well-developed well-nourished lying on bed appeared to be in no discomfort. HEENT: Normocephalic. Atraumatic. NECK: Supple. CHEST/LUNGS: breathing nonlabored on N/c. HEART/CARDIOVASCULAR: Heart rate stable on telemetry ABDOMEN: Visibly not distended SKIN: There is no rash NEURO: No focal motor deficit. Follows command. MUSCULOSKELETAL: No joint effusion EXTRIMITY: No swelling, no cyanosis or clubbing. PSYCH: Cooperative. - Constitutional Vitals: Vital Signs - 12hr 12/24/20 12/24/20 12/24/20 03:00 04:00 05:00 Temperature Pulse Rate 95 H 96 H 92 H Respiratory 41 H 33 H 33 H Rate Blood Pressure 143/72 142/71 135/65 O2 Sat by Pulse 100 100 100 Oximetry 12/24/20 12/24/20 12/24/20 06:00 06:56 07:00 Temperature Pulse Rate 93 H 92 H 89 Respiratory 27 H 32 H Rate Blood Pressure 130/63 130/63 133/84 O2 Sat by Pulse 100 100 Oximetry 12/24/20 12/24/20 12/24/20 08:35 08:44 09:30 Temperature 98.2 F Pulse Rate 85 Respiratory Rate Blood Pressure 126/75 O2 Sat by Pulse 98 Oximetry 12/24/20 12/24/20 12/24/20 09:39 10:16 10:20 Temperature Pulse Rate 88 86 85 Respiratory 32 H 22 Rate Blood Pressure 117/70 O2 Sat by Pulse 97 97 Oximetry 12/24/20 12/24/20 12/24/20 10:30 10:40 10:50 Temperature Pulse Rate 83 81 79 Respiratory 18 19 23 Rate Blood Pressure 123/69 123/69 126/66 O2 Sat by Pulse 99 98 97 Oximetry 12/24/20 12/24/20 12/24/20 11:00 11:10 11:20 Temperature Pulse Rate 79 77 78 Respiratory 26 H 17 21 Rate Blood Pressure 108/60 108/60 116/80 O2 Sat by Pulse 99 100 100 Oximetry 12/24/20 12/24/20 12/24/20 11:30 11:40 11:50 Temperature Pulse Rate 77 79 79 Respiratory 20 29 H 18 Rate Blood Pressure 112/73 112/73 112/67 O2 Sat by Pulse 100 100 100 Oximetry 12/24/20 12/24/20 12/24/20 12:00 12:10 12:20 Temperature 97.7 F Pulse Rate 80 82 79 Respiratory 17 21 20 Rate Blood Pressure 112/67 117/79 O2 Sat by Pulse 100 100 100 Oximetry 12/24/20 12/24/20 12/24/20 12:30 12:40 12:50 Temperature Pulse Rate 84 80 79 Respiratory 20 28 H 31 H Rate Blood Pressure 128/77 128/77 128/68 O2 Sat by Pulse 100 100 100 Oximetry 12/24/20 12/24/20 12/24/20 13:00 13:10 13:19 Temperature Pulse Rate 82 79 80 Respiratory 32 H 19 Rate Blood Pressure 125/72 125/72 131/78 O2 Sat by Pulse 100 100 Oximetry 12/24/20 13:20 Temperature Pulse Rate 80 Respiratory 16 Rate Blood Pressure 131/78 O2 Sat by Pulse 100 Oximetry - Labs CBC & Chem 7: 12/25/20 04:26 12/25/20 04:26 Labs: Abnormal lab results 12/23/20 12/24/20 12/24/20 Range/Units 21:44 05:34 05:34 WBC 15.3 H (4.5-11.0) K/mm3 RBC 2.34 L (3.65-5.03) M/mm3 Hgb 7.5 L (11.8-15.2) gm/dl Hct 22.7 L (35.5-45.6) % MCV 97 H (84-94) fl RDW 16.7 H (13.2-15.2) % Lymph % (Auto) 3.8 L (13.4-35.0) % Lymph # (Auto) 0.6 L (1.2-5.4) K/mm3 [place] # (Auto) 1.0 H (0.0-0.8) K/mm3 Seg Neutrophils % 88.6 H (40.0-70.0) % Seg Neutrophils # 13.6 H (1.8-7.7) K/mm3 Sodium 130 L 132 L (137-145) mmol/L Carbon Dioxide 21 L (22-30) mmol/L BUN 28 H (9-20) mg/dL Creatinine 1.7 H (0.8-1.3) mg/dL Calcium 6.5 L (8.4-10.2) mg/dL HEART Score - HEART Score Troponin: Troponin T 0.035 ng/mL (0.00-0.029) H 12/22/20 18:39
--- NOTE | 2020-12-24 15:55 | Event Note ---
Date: 12/24/20 Positive for COVID start on dexamethasine, zinc, vit c, vitd cont abx for now, ID consult, follow inflammatory markers
[2020-12-24] MEDS ORDERED: DEXAMETHASONE 2 MG TAB PO SCH (16:00)
[2020-12-24] MEDS: DEXAMETHASONE 2 MG TAB PO SCH (17:47)
[2020-12-24] MEDS: ASCORBIC ACID 500 MG TAB PO SCH (22:01)
[2020-12-24] MEDS: ZINC SULFATE 220 MG CAP PO SCH (22:03)
[2020-12-25] MEDS: IPRATROPIUM/ALBUTEROL SULFATE 3 ML AMPUL.NEB IH SCH ×4 (05:08→20:17)
[2020-12-25 05:50] LABS: Hematocrit 23.3 % (35.5-45.6); Hemoglobin 7.9 gm/dl (11.8-15.2); Mean Corpuscular HGB Conc 34 % (32-34); Mean Corpuscular Volume 98 fl (84-94); Platelet Count 211 K/mm3 (140-440); Red Blood Count 2.39 M/mm3 (3.65-5.03); Red Cell Distribution Width 17.1 % (13.2-15.2)
[2020-12-25 05:58] LABS: BUN/Creatinine Ratio 20; Blood Urea Nitrogen 24 mg/dL (9-20); Calcium 7.5 mg/dL (8.4-10.2); Hemolysis Index 9
[2020-12-25] MEDS: hydrALAZINE 25 MG TAB PO SCH ×3 (06:39→21:56)
[2020-12-25 06:57] LABS: Total Cells Counted 100
[2020-12-25 06:59] LABS: Anisocytosis Few; Hypochromasia 1+; Macrocytosis Few; Platelet Estimate Consistent w Auto; Schistocytes Few; Spherocytes Few; Target Cells Few
[2020-12-25] MEDS: allopurinoL 100 MG TAB PO SCH (09:00)
[2020-12-25] MEDS: ASPIRIN 81 MG TAB CHEW PO SCH (09:00)
[2020-12-25] MEDS: carvediloL 6.25 MG TAB PO SCH ×2 (09:00→21:55)
[2020-12-25] MEDS: ASCORBIC ACID 500 MG TAB PO SCH ×2 (09:00→21:57)
[2020-12-25] MEDS: ISOSORBIDE DINITRATE 20 MG TAB PO SCH ×3 (09:00→20:25)
[2020-12-25] MEDS: FOLIC ACID 1 MG TAB PO SCH (09:00)
[2020-12-25] MEDS: ZINC SULFATE 220 MG CAP PO SCH ×2 (09:01→21:56)
[2020-12-25] MEDS: CHOLECALCIFEROL (VIT D3) 5,000 UNIT TAB PO SCH (09:01)
[2020-12-25] MEDS: cefTRIAXone/NS 2 GM/100 ML 2 GM/100 ML BAG IV SCH (09:03)
[2020-12-25] MEDS: APIXABAN 2.5 MG TAB PO SCH ×2 (10:48→21:54)
[2020-12-25] MEDS: AZITHROMYCIN/NS 500 MG/250 ML 500 MG/250 ML BAG IV SCH (11:02)
--- NOTE | 2020-12-25 11:05 | Progress Note ---
Assessment and Plan 1. Acute kidney injury: Vasomotor MARY superimposed on CKD. Low FeNa. Renal US ordered. Monitor renal function. Creatinine level is improving. Avoid nephrotoxic agents. Meds dosage based on GFR. 2. FEN: Metabolic acidosis, start on Sod bicarb, monitor. Hyponatremia, Sod bicarb, monitor. Monitor lytes. 3. Acute respiratory failure: CXR showed right lung base opacity. Patient positive for COVID-19 test. Was on BIPAP. Decadron. 4. Sepsis: 2/2 PNA. Continue Abx and follow culture results. 5. Toxic metabolic encephalopathy: Improved. 6. Anemia, POA: Monitor. 7. DM type 2: Monitor blood glucose. 8. Hypertension: Monitor. Subjective: Patient was seen and examined at the bedside. Doing ok. Examination: General appearance: well-developed, appears stated age, obese, on RA HEENT: ATNC, Pupils equal Neck: Trachea midline Respiratory: ctab Cardiology: regular, S1S2, no murmur Gastrointestinal: normoactive bowel sounds, no tenderness, not distended, obese Integumentary: warm and dry, scattered eczema, LE chronic changes Neurologic: alert, conversing, able to move extremities Ext: trace LE edema Subjective Date of service: 12/25/20 Objective - Vital Signs Vital signs: Vital Signs - 12hr 12/24/20 12/24/20 12/24/20 23:10 23:20 23:30 Temperature Pulse Rate 82 78 80 Pulse Rate [ From Monitor] Respiratory 30 H 23 31 H Rate Blood Pressure 139/88 147/84 144/79 O2 Sat by Pulse 99 100 100 Oximetry 12/24/20 12/24/20 12/25/20 23:40 23:50 00:00 Temperature Pulse Rate 82 84 83 Pulse Rate [ From Monitor] Respiratory 32 H 26 H 27 H Rate Blood Pressure 144/79 137/85 137/85 O2 Sat by Pulse 100 100 100 Oximetry 12/25/20 12/25/20 12/25/20 00:10 00:20 00:30 Temperature Pulse Rate 81 82 81 Pulse Rate [ From Monitor] Respiratory 17 22 21 Rate Blood Pressure 136/86 132/78 128/74 O2 Sat by Pulse 99 100 97 Oximetry 12/25/20 12/25/20 12/25/20 00:40 00:50 01:00 Temperature Pulse Rate 77 82 77 Pulse Rate [ From Monitor] Respiratory 12 25 H 26 H Rate Blood Pressure 128/74 130/82 137/79 O2 Sat by Pulse 100 100 98 Oximetry 12/25/20 12/25/20 12/25/20 01:10 01:20 01:30 Temperature Pulse Rate 80 79 76 Pulse Rate [ From Monitor] Respiratory 19 29 H 26 H Rate Blood Pressure 137/79 132/78 136/86 O2 Sat by Pulse 100 100 100 Oximetry 12/25/20 12/25/20 12/25/20 01:40 01:50 02:00 Temperature Pulse Rate 74 77 78 Pulse Rate [ From Monitor] Respiratory 21 26 H 19 Rate Blood Pressure 136/86 135/83 143/93 O2 Sat by Pulse 100 100 99 Oximetry 12/25/20 12/25/20 12/25/20 02:10 02:20 02:30 Temperature Pulse Rate 75 75 75 Pulse Rate [ From Monitor] Respiratory 28 H 25 H 27 H Rate Blood Pressure 143/93 133/84 137/80 O2 Sat by Pulse 100 100 97 Oximetry 12/25/20 12/25/20 12/25/20 02:40 02:50 03:00 Temperature Pulse Rate 76 93 H 78 Pulse Rate [ From Monitor] Respiratory 20 19 29 H Rate Blood Pressure 137/80 127/85 130/85 O2 Sat by Pulse 99 100 98 Oximetry 12/25/20 12/25/20 12/25/20 03:10 03:20 03:30 Temperature Pulse Rate 75 75 86 Pulse Rate [ From Monitor] Respiratory 19 30 H 21 Rate Blood Pressure 130/85 130/85 133/85 O2 Sat by Pulse 99 99 100 Oximetry 12/25/20 12/25/20 12/25/20 03:40 03:50 04:00 Temperature 97.5 F L Pulse Rate 76 81 72 Pulse Rate [ 76 From Monitor] Respiratory 31 H 22 29 H Rate Blood Pressure 133/85 138/84 144/87 O2 Sat by Pulse 100 100 99 Oximetry 12/25/20 12/25/20 12/25/20 04:10 04:20 04:30 Temperature Pulse Rate 68 74 74 Pulse Rate [ From Monitor] Respiratory 22 30 H 31 H Rate Blood Pressure 144/87 132/84 139/94 O2 Sat by Pulse 100 100 100 Oximetry 12/25/20 12/25/20 12/25/20 04:40 04:50 05:00 Temperature Pulse Rate 75 79 75 Pulse Rate [ From Monitor] Respiratory 28 H 27 H 25 H Rate Blood Pressure 139/94 139/94 132/84 O2 Sat by Pulse 100 100 100 Oximetry 12/25/20 12/25/20 12/25/20 05:10 05:20 05:30 Temperature Pulse Rate 80 73 75 Pulse Rate [ From Monitor] Respiratory 16 26 H 23 Rate Blood Pressure 132/84 132/84 132/84 O2 Sat by Pulse 100 100 100 Oximetry 12/25/20 12/25/20 12/25/20 05:40 05:50 06:00 Temperature Pulse Rate 87 75 77 Pulse Rate [ From Monitor] Respiratory 27 H 25 H 28 H Rate Blood Pressure 137/76 147/82 152/87 O2 Sat by Pulse 100 100 100 Oximetry 12/25/20 12/25/20 12/25/20 06:10 06:20 06:30 Temperature Pulse Rate 78 99 H 79 Pulse Rate [ From Monitor] Respiratory 19 22 31 H Rate Blood Pressure 152/87 148/82 149/77 O2 Sat by Pulse 100 100 100 Oximetry 12/25/20 12/25/20 12/25/20 06:39 06:40 06:50 Temperature Pulse Rate 87 78 79 Pulse Rate [ From Monitor] Respiratory 22 31 H Rate Blood Pressure 149/71 149/77 161/82 O2 Sat by Pulse 100 99 Oximetry 12/25/20 12/25/20 12/25/20 07:00 07:10 07:20 Temperature Pulse Rate 78 79 82 Pulse Rate [ From Monitor] Respiratory 19 27 H 27 H Rate Blood Pressure 153/82 153/82 151/71 O2 Sat by Pulse 100 100 100 Oximetry 12/25/20 12/25/20 12/25/20 07:30 07:40 07:45 Temperature 98.2 F Pulse Rate 81 80 Pulse Rate [ From Monitor] Respiratory 30 H 32 H Rate Blood Pressure 136/64 136/64 O2 Sat by Pulse 100 99 Oximetry 12/25/20 12/25/20 12/25/20 07:50 08:00 08:10 Temperature Pulse Rate 83 85 84 Pulse Rate [ 83 From Monitor] Respiratory 34 H 29 H 16 Rate Blood Pressure 143/68 143/68 143/68 O2 Sat by Pulse 100 100 100 Oximetry 12/25/20 12/25/20 12/25/20 08:16 08:20 08:30 Temperature 77 F L Pulse Rate 94 H 79 Pulse Rate [ From Monitor] Respiratory 20 31 H Rate Blood Pressure 143/68 143/68 O2 Sat by Pulse 99 100 Oximetry 12/25/20 12/25/20 12/25/20 08:40 08:50 09:00 Temperature Pulse Rate 82 81 83 Pulse Rate [ From Monitor] Respiratory 15 22 32 H Rate Blood Pressure 143/68 143/68 127/71 O2 Sat by Pulse 100 100 100 Oximetry 12/25/20 12/25/20 12/25/20 09:10 09:20 09:30 Temperature Pulse Rate 84 82 84 Pulse Rate [ From Monitor] Respiratory 25 H 27 H 28 H Rate Blood Pressure 127/71 126/71 112/68 O2 Sat by Pulse 99 100 99 Oximetry 12/25/20 12/25/20 12/25/20 09:40 09:50 10:00 Temperature Pulse Rate 84 83 83 Pulse Rate [ From Monitor] Respiratory 29 H 29 H 26 H Rate Blood Pressure 112/68 110/62 130/74 O2 Sat by Pulse 99 99 100 Oximetry 12/25/20 12/25/20 12/25/20 10:10 10:20 10:30 Temperature Pulse Rate 84 85 82 Pulse Rate [ From Monitor] Respiratory 27 H 28 H 17 Rate Blood Pressure 130/74 120/69 120/69 O2 Sat by Pulse 100 99 100 Oximetry 12/25/20 12/25/20 12/25/20 10:40 10:50 11:00 Temperature Pulse Rate 75 62 74 Pulse Rate [ From Monitor] Respiratory 24 20 22 Rate Blood Pressure 118/76 115/67 115/67 O2 Sat by Pulse 100 100 100 Oximetry - Lab 12/25/20 04:26 12/25/20 04:26 Most recent lab results ABG pH 7.484 (7.320-7.450) H 12/23/20 00:23 Calcium 7.5 mg/dL (8.4-10.2) L D 12/25/20 04:26 Urine Creatinine 233.3 mg/dL (0.1-20.0) H 12/22/20 23:18 Urine Sodium 32 mmol/L 12/22/20 23:18 Medications & Allergies - Medications Allergies/Adverse Reactions: Allergies No Known Allergies Allergy (Unverified 01/19/20 19:36) Home Medications: Home Medications Medication Instructions Recorded Confirmed Last Taken Type Aspirin [Aspirin BABY CHEW TAB] 81 mg PO DAILY 12/23/20 12/23/20 Unknown History Folic Acid [Folvite] 1 mg PO QDAY 12/23/20 12/23/20 Unknown History Insulin Glargine [Lantus VIAL] 25 unit SUB-Q QHS 12/23/20 12/23/20 Unknown History Isosorbide Dinitrate [Isordil] 20 mg PO TID 12/23/20 12/23/20 Unknown History Lispro Insulin [HumaLOG] 5 unit SQ TID 12/23/20 12/23/20 Unknown History Torsemide [Demadex] 100 mg PO QDAY 12/23/20 12/23/20 Unknown History allopurinoL [Zyloprim] 100 mg PO QDAY 12/23/20 12/23/20 Unknown History carvediloL [Coreg] 6.25 mg PO BID 12/23/20 12/23/20 Unknown History hydrALAZINE [Apresoline] 25 mg PO Q8HR 12/23/20 12/23/20 Unknown History metFORMIN [Glucophage] 500 mg PO BID 12/23/20 12/23/20 Unknown History Active Medications: Generic Name Dose Route Start Last Admin Trade Name Freq PRN Reason Stop Dose Admin Acetaminophen 650 mg 12/22/20 19:29 12/23/20 19:52 Acetaminophen 325 Mg Tab PO 650 mg Q4H PRN Administration Pain MILD(1-3)/Fever >100.5/HARP Albuterol/Ipratropium 1 ampul 12/23/20 15:00 12/25/20 05:08 Ipratropium/Albuterol Sulfate 3 Ml Ampul.Neb IH Not Given Q6HRT [facility] Allopurinol 100 mg 12/24/20 10:00 12/25/20 09:00 Allopurinol 100 Mg Tab PO 100 mg QDAY AGUS Administration Apixaban 2.5 mg 12/25/20 11:00 12/25/20 10:48 Apixaban 2.5 Mg Tab PO 2.5 mg Q12HR AGUS Administration Protocol Ascorbic Acid 1,000 mg 12/24/20 22:00 12/25/20 09:00 Ascorbic Acid 500 Mg Tab PO 1,000 mg BID AGUS Administration Aspirin 81 mg 12/24/20 10:00 12/25/20 09:00 Aspirin 81 Mg Tab Chew PO 81 mg DAILY AGUS Administration Carvedilol 6.25 mg 12/23/20 22:00 12/25/20 09:00 Carvedilol 6.25 Mg Tab PO 6.25 mg BID AGUS Administration Cholecalciferol 5,000 unit 12/25/20 10:00 12/25/20 09:01 Cholecalciferol (Vit D3) 5,000 Unit Tab PO 5,000 unit DAILY AGUS Administration Dexamethasone 6 mg 12/24/20 18:00 12/24/20 17:47 Dexamethasone 2 Mg Tab PO 6 mg Q24H AGUS Administration Dextrose 50 ml 12/23/20 11:11 Dextrose 50% In Water (25gm) 50 Ml Syringe IV Q30MIN PRN Hypoglycemia Protocol Folic Acid 1 mg 12/24/20 10:00 12/25/20 09:00 Folic Acid 1 Mg Tab PO 1 mg QDAY AGUS Administration Hydralazine HCl 25 mg 12/23/20 22:00 12/25/20 06:39 Hydralazine 25 Mg Tab PO 25 mg Q8HR AGUS Administration Hydromorphone HCl 0.25 mg 12/22/20 19:29 12/24/20 03:40 Hydromorphone 1 Mg/1 Ml Inj IV 0.25 mg Q4H PRN Administration Pain, Moderate (4-6) Azithromycin 500 mg in 250 mls @ 250 mls/hr 12/23/20 12:00 12/25/20 11:02 Zithromax/Ns IV 250 mls/hr Q24H AGUS Administration Sodium Chloride 1,000 mls @ 50 mls/hr 12/23/20 11:30 Nacl 0.9% 1000 Ml IV DIRECT AGUS Ceftriaxone Sodium 2 gm in 100 mls @ 200 mls/hr 12/24/20 08:00 12/25/20 09:03 Rocephin/Ns 2 Gm/100 Ml IV 200 mls/hr Q24H AGUS Administration Protocol Isosorbide Dinitrate 20 mg 12/23/20 20:00 12/25/20 09:00 Isosorbide Dinitrate 20 Mg Tab PO 20 mg TID AGUS Administration Ondansetron HCl 4 mg 12/22/20 19:29 12/23/20 16:45 Ondansetron 4 Mg/2 Ml Inj IV 4 mg Q8H PRN Administration Nausea And Vomiting Sodium Chloride 10 ml 12/22/20 22:00 12/25/20 09:04 Sodium Chloride 0.9% 10 Ml Flush Syringe IV 10 ml BID AGUS Administration Sodium Chloride 10 ml 12/22/20 19:29 Sodium Chloride 0.9% 10 Ml Flush Syringe IV PRN PRN LINE FLUSH Zinc Sulfate 220 mg 12/24/20 22:00 12/25/20 09:01 Zinc Sulfate 220 Mg Cap PO 220 mg BID AGUS Administration
--- NOTE | 2020-12-25 13:28 | Consultation ---
History of Present Illness - Reason for Consult Consult date: 12/25/20 COVID-19 Requesting physician: KARTHIK PERRY - History of Present Illness The patient is a 50-year-old male with hypertension, diabetes, CKD, obesity, gout was admitted to the hospital with altered mental status. Labs revealed leukocytosis, MARY and CXR with possible pneumonia. Patient received empiric antibiotics. Also tested positive for COVID-19, hence infectious diseases was consulted. Initially patient was hypoxic requiring supplemental oxygen, now has been weaned off and is on room air since yesterday. Afebrile. Mental status has improved. Review of Systems: reviewed in the chart, unable to obtain, minimize risk of transmission Past History Past Medical History: diabetes, heart failure, hypertension, renal failure, other (See HPI) Past Surgical History: No surgical history, Other (Reviewed) Social history: single. denies: smoking, alcohol abuse, prescription drug abuse Family history: diabetes, hypertension Medications and Allergies Allergies Allergy/AdvReac Type Severity Reaction Status Date / Time No Known Allergies Allergy Unverified 01/19/20 19:36 Home Medications Medication Instructions Recorded Confirmed Last Taken Type Aspirin [Aspirin BABY CHEW TAB] 81 mg PO DAILY 12/23/20 12/23/20 Unknown History Folic Acid [Folvite] 1 mg PO QDAY 12/23/20 12/23/20 Unknown History Insulin Glargine [Lantus VIAL] 25 unit SUB-Q QHS 12/23/20 12/23/20 Unknown History Isosorbide Dinitrate [Isordil] 20 mg PO TID 12/23/20 12/23/20 Unknown History Lispro Insulin [HumaLOG] 5 unit SQ TID 12/23/20 12/23/20 Unknown History Torsemide [Demadex] 100 mg PO QDAY 12/23/20 12/23/20 Unknown History allopurinoL [Zyloprim] 100 mg PO QDAY 12/23/20 12/23/20 Unknown History carvediloL [Coreg] 6.25 mg PO BID 12/23/20 12/23/20 Unknown History hydrALAZINE [Apresoline] 25 mg PO Q8HR 12/23/20 12/23/20 Unknown History metFORMIN [Glucophage] 500 mg PO BID 12/23/20 12/23/20 Unknown History Active Meds: Active Medications Acetaminophen (Acetaminophen 325 Mg Tab) 650 mg PO Q4H PRN PRN Reason: Pain MILD(1-3)/Fever >100.5/HARP Last Admin: 12/23/20 19:52 Dose: 650 mg Documented by: Albuterol/Ipratropium (Ipratropium/Albuterol Sulfate 3 Ml Ampul.Neb) 1 ampul IH Q6HRT [facility] Last Admin: 12/25/20 08:55 Dose: 1 ampul Documented by: Allopurinol (Allopurinol 100 Mg Tab) 100 mg PO QDAY [facility] Last Admin: 12/25/20 09:00 Dose: 100 mg Documented by: Apixaban (Apixaban 2.5 Mg Tab) 2.5 mg PO Q12HR [facility]; Protocol Last Admin: 12/25/20 10:48 Dose: 2.5 mg Documented by: Ascorbic Acid (Ascorbic Acid 500 Mg Tab) 1,000 mg PO BID [facility] Last Admin: 12/25/20 09:00 Dose: 1,000 mg Documented by: Aspirin (Aspirin 81 Mg Tab Chew) 81 mg PO DAILY [facility] Last Admin: 12/25/20 09:00 Dose: 81 mg Documented by: Carvedilol (Carvedilol 6.25 Mg Tab) 6.25 mg PO BID [facility] Last Admin: 12/25/20 09:00 Dose: 6.25 mg Documented by: Cholecalciferol (Cholecalciferol (Vit D3) 5,000 Unit Tab) 5,000 unit PO DAILY [facility] Last Admin: 12/25/20 09:01 Dose: 5,000 unit Documented by: Dexamethasone (Dexamethasone 2 Mg Tab) 6 mg PO Q24H [facility] Last Admin: 12/24/20 17:47 Dose: 6 mg Documented by: Dextrose (Dextrose 50% In Water (25gm) 50 Ml Syringe) 50 ml IV Q30MIN PRN; Protocol PRN Reason: Hypoglycemia Folic Acid (Folic Acid 1 Mg Tab) 1 mg PO QDAY [facility] Last Admin: 12/25/20 09:00 Dose: 1 mg Documented by: Hydralazine HCl (Hydralazine 25 Mg Tab) 25 mg PO Q8HR [facility] Last Admin: 12/25/20 06:39 Dose: 25 mg Documented by: Hydromorphone HCl (Hydromorphone 1 Mg/1 Ml Inj) 0.25 mg IV Q4H PRN PRN Reason: Pain, Moderate (4-6) Last Admin: 12/24/20 03:40 Dose: 0.25 mg Documented by: Azithromycin (Zithromax/Ns) 500 mg in 250 mls @ 250 mls/hr IV Q24H [facility] Last Admin: 12/25/20 11:02 Dose: 250 mls/hr Documented by: Sodium Chloride (Nacl 0.9% 1000 Ml) 1,000 mls @ 50 mls/hr IV DIRECT AGUS Ceftriaxone Sodium (Rocephin/Ns 2 Gm/100 Ml) 2 gm in 100 mls @ 200 mls/hr IV Q24H [facility]; Protocol Last Admin: 12/25/20 09:03 Dose: 200 mls/hr Documented by: Isosorbide Dinitrate (Isosorbide Dinitrate 20 Mg Tab) 20 mg PO TID [facility] Last Admin: 12/25/20 09:00 Dose: 20 mg Documented by: Ondansetron HCl (Ondansetron 4 Mg/2 Ml Inj) 4 mg IV Q8H PRN PRN Reason: Nausea And Vomiting Last Admin: 12/23/20 16:45 Dose: 4 mg Documented by: Sodium Chloride (Sodium Chloride 0.9% 10 Ml Flush Syringe) 10 ml IV BID [facility] Last Admin: 12/25/20 09:04 Dose: 10 ml Documented by: Sodium Chloride (Sodium Chloride 0.9% 10 Ml Flush Syringe) 10 ml IV PRN PRN PRN Reason: LINE FLUSH Zinc Sulfate (Zinc Sulfate 220 Mg Cap) 220 mg PO BID [facility] Last Admin: 12/25/20 09:01 Dose: 220 mg Documented by: Physical Examination - Physical Exam Narrative exam: Physical Exam (reviewed in chart to minimize risk of transmission) Constitutional: deferred Head, Ears, Nose: deferred Eyes: deferred Neck: deferred Oral: deferred Cardiovascular: deferred Respiratory: deferred GI: deferred Musculoskeletal: deferred Skin: deferred Hem/Lymphatic: deferred Psych: deferred Neurological: deferred - Constitutional Vitals: Vital Signs Temp Pulse Resp BP Pulse Ox 97.9 F 76 30 H 112/65 100 12/25/20 12:00 12/25/20 12:10 12/25/20 12:10 12/25/20 12:10 12/25/20 12:10 Temperature -Last 24 Hours Temperature 97.9 F Temperature 97.9 F Temperature 77 F Temperature 98.2 F Temperature 97.5 F Temperature 98.3 F Temperature 98.2 F Results - Labs CBC & Chem 7: 12/25/20 04:26 12/25/20 04:26 Labs: Abnormal lab results 12/24/20 12/24/20 12/25/20 Range/Units 11:10 16:00 04:26 RBC 2.39 L (3.65-5.03) M/mm3 Hgb 7.9 L (11.8-15.2) gm/dl Hct 23.3 L (35.5-45.6) % MCV 98 H (84-94) fl MCH 33 H (28-32) pg RDW 17.1 H (13.2-15.2) % Seg Neuts % (Manual) 91.0 H (40.0-70.0) % Lymphocytes % (Manual) 5.0 L (13.4-35.0) % Seg Neutrophils # Man 9.6 H (1.8-7.7) K/mm3 Lymphocytes # (Manual) 0.5 L (1.2-5.4) K/mm3 D-Dimer 1343.49 H (0-234) ng/mlDDU Sodium (137-145) mmol/L Carbon Dioxide (22-30) mmol/L BUN (9-20) mg/dL Glucose (75-100) mg/dL Calcium (8.4-10.2) mg/dL Coronavirus (PCR) Positive A (Negative) 12/25/20 Range/Units 04:26 RBC (3.65-5.03) M/mm3 Hgb (11.8-15.2) gm/dl Hct (35.5-45.6) % MCV (84-94) fl MCH (28-32) pg RDW (13.2-15.2) % Seg Neuts % (Manual) (40.0-70.0) % Lymphocytes % (Manual) (13.4-35.0) % Seg Neutrophils # Man (1.8-7.7) K/mm3 Lymphocytes # (Manual) (1.2-5.4) K/mm3 D-Dimer (0-234) ng/mlDDU Sodium 131 L (137-145) mmol/L Carbon Dioxide 18 L (22-30) mmol/L BUN 24 H (9-20) mg/dL Glucose 135 H (75-100) mg/dL Calcium 7.5 L D (8.4-10.2) mg/dL Coronavirus (PCR) (Negative) - Imaging and Cardiology Chest x-ray: report reviewed, image reviewed (pneumonitis) Assessment and Plan Cultures: SARS CoV2 PCR: positive Blood culture: no growth Urine culture: no growth A/P: 50-year-old male with hypertension, diabetes, CKD, obesity, gout was admitted to the hospital with altered mental status: #SIRS/Sepsis, bilateral pneumonia: secondary to COVID-19. ?bacterial component, procal was elevated #Acute hypoxic respiratory failure: Transient, now resolved. #MARY: Resolved. #Acute encephalopathy: Improved. Likely metabolic, sodium was 119 on admission. Recs: Continue short course of steroids. Since hypoxia has resolved, no role for remdesivir at this time Continue empiric antibiotics x 5 days, procalcitonin elevated prophylactic anticoagulation based on d-dimer per hospital protocol trend ferritin, LDH, d-dimer, CRP every 2-3 days for risk stratification and to assess disease progression Sal Johnson MD, FACP [facility] ([facility]) O: [phone] F: [phone]
--- NOTE | 2020-12-25 14:36 | Progress Note ---
Assessment and Plan -- Sepsis Likely due to pneumonia with COVID-19, Initiated Sepsis protocol: CBC, CMP, IV antibiotic therapy, blood culture, IV fluid resuscitation therapy, monitor urine output every shift, maintain mean arterial pressure greater than or equal to 65, monitor fluid balance, serial lactic acid level. --COVID-19 pneumonia -Continue isolation, patient started on dexamethasone 6 mg p.o. daily -Patient tested positive for COVID-19 virus 12/24 - CXR: Cardiomegaly with opacity in the right lung base, which may reflect pulmonary edema in the setting of CHF or may reflect atypical infectious or inflammatory pneumonitis. -Continue Zithromax and Rocephin as procalcitonin level is high -Placed on dexamethasone for total 10 days -No need for remdesivir as patient currently on room air -Infectious disease consulted, appreciate recommendations -Droplet/contact isolation -Continue SPO2 monitoring -Supplemental oxygen as needed -Pulmonary hygiene -Prone to sleep -Vitamin C, vitamin D, zinc -Anticoagulation per protocol -Lasix IV as needed to prevent pulmonary edema --Acute hypoxic respiratory failure, POA Likely from PNA, now resolved Required Bipap on admission, then supplemental O2 -- Toxic metabolic encephalopathy Likely due to sepsis and dehydration CT Head without any acute process, Continue neuro check, seizure precautions, aspiration precautions, treat sepsis -- MARY with vasomotor nephropathy, resolved Likely due to sepsis and underlying dehydration Nephrology team consulted, IV fluid resuscitation therapy, monitor urine output every shift, --Hypertension, resume home meds and adjust BP meds as needed --Diabetes mellitus type 2, continue consistent carb diet and SSI -- Hyponatremia syndrome Likely due to dehydration IV fluid resuscitation therapy, nephrology team consulted, repeat serum sodium --Metabolic acidosis Likely due to sepsis and dehydration IV fluid resuscitation therapy, IV bicarbonate therapy as needed, supportive care. --Elevated troponin, likely NSTEMI type II in light of elevated creatinine 2D echo ordered pending, patient denies any chest pain --Macrocytic anemia, ordered vitamin B12 and folic acid level Monitor H&H, no sign of active bleeding -- DVT prophylaxis SCD to bilateral lower extremities while in bed Brief History: The patient is a 50 YO male with history significant for Obesity, HTN, DM type 2, CKD, OA, Gout and CHF with unknown EF who presented to [facility] ED 12/22 for evaluation of AMS. Per family patient has experienced increased weakness and confusion of 1 day duration. Patient was transported thru EMS and suspected for CVA. A code stroke was called. The patient was found to have sepsis with possible pneumonia, toxic metabolic encephalopathy, acute kidney injury, hyponatremia, and metabolic acidosis. Patient initiated on sepsis protocol and admitted to [facility]. Labs on admission was significant for Creat 3.6, BUN 19, Sodium 119, bicarb 21 and wbc 23.4. Daily course: 12/23: Ordered for Covid test, continue Rocephin and Zithromax for now mental status significantly improved we will hold acyclovir for now. Will place on gentle hydration, will follow 2D echo. Continue to monitor CBC and BMP. off BiPAP 12/24: COVID-19 test result pending, 2D echo pending. Renal function improved. Sodium level also improving. Continue gentle hydration, continue IV antibiotics. Follow clinically. Patient on 4 L nasal cannula -wean off as tolerated. 12/25: Patient on room air today. Transfer to [facility]. Assess for home O2 requirement. Continue empiric antibiotic for total 5 days. Sodium and creatinine significantly improved today. If clinically stable possible DC tomorrow. Subjective Date of service: 12/25/20 Interval history: Patient seen and examined. Medical records and medication list reviewed. No acute event overnight noted by the RN. Patient denies any chest pain, patient on RA today. Patient is tolerating diet. Discussed plan of care at bedside with patient. Covid test is positive Objective - Exam Narrative Exam: Limited physical exam due to COVID-19 pandemic to minimize transmission of the disease and to preserve PPE. Vital reviewed and stable. GENERAL: well-developed well-nourished lying on bed appeared to be in no discomfort. HEENT: Normocephalic. Atraumatic. NECK: Supple. CHEST/LUNGS: breathing nonlabored on N/c. HEART/CARDIOVASCULAR: Heart rate stable on telemetry ABDOMEN: Visibly not distended SKIN: There is no rash NEURO: No focal motor deficit. Follows command. MUSCULOSKELETAL: No joint effusion EXTRIMITY: No swelling, no cyanosis or clubbing. PSYCH: Cooperative. - Constitutional Vitals: Vital Signs - 12hr 12/25/20 12/25/20 12/25/20 02:40 02:50 03:00 Temperature Pulse Rate 76 93 H 78 Pulse Rate [ Anterior Bilateral Throughout] Pulse Rate [ From Monitor] Respiratory 20 19 29 H Rate Respiratory Rate [Anterior Bilateral Throughout] Blood Pressure 137/80 127/85 130/85 O2 Sat by Pulse 99 100 98 Oximetry 12/25/20 12/25/20 12/25/20 03:10 03:20 03:30 Temperature Pulse Rate 75 75 86 Pulse Rate [ Anterior Bilateral Throughout] Pulse Rate [ From Monitor] Respiratory 19 30 H 21 Rate Respiratory Rate [Anterior Bilateral Throughout] Blood Pressure 130/85 130/85 133/85 O2 Sat by Pulse 99 99 100 Oximetry 12/25/20 12/25/20 12/25/20 03:40 03:50 04:00 Temperature 97.5 F L Pulse Rate 76 81 72 Pulse Rate [ Anterior Bilateral Throughout] Pulse Rate [ 76 From Monitor] Respiratory 31 H 22 29 H Rate Respiratory Rate [Anterior Bilateral Throughout] Blood Pressure 133/85 138/84 144/87 O2 Sat by Pulse 100 100 99 Oximetry 12/25/20 12/25/20 12/25/20 04:10 04:20 04:30 Temperature Pulse Rate 68 74 74 Pulse Rate [ Anterior Bilateral Throughout] Pulse Rate [ From Monitor] Respiratory 22 30 H 31 H Rate Respiratory Rate [Anterior Bilateral Throughout] Blood Pressure 144/87 132/84 139/94 O2 Sat by Pulse 100 100 100 Oximetry 12/25/20 12/25/20 12/25/20 04:40 04:50 05:00 Temperature Pulse Rate 75 79 75 Pulse Rate [ Anterior Bilateral Throughout] Pulse Rate [ From Monitor] Respiratory 28 H 27 H 25 H Rate Respiratory Rate [Anterior Bilateral Throughout] Blood Pressure 139/94 139/94 132/84 O2 Sat by Pulse 100 100 100 Oximetry 12/25/20 12/25/20 12/25/20 05:10 05:20 05:30 Temperature Pulse Rate 80 73 75 Pulse Rate [ Anterior Bilateral Throughout] Pulse Rate [ From Monitor] Respiratory 16 26 H 23 Rate Respiratory Rate [Anterior Bilateral Throughout] Blood Pressure 132/84 132/84 132/84 O2 Sat by Pulse 100 100 100 Oximetry 12/25/20 12/25/20 12/25/20 05:40 05:50 06:00 Temperature Pulse Rate 87 75 77 Pulse Rate [ Anterior Bilateral Throughout] Pulse Rate [ From Monitor] Respiratory 27 H 25 H 28 H Rate Respiratory Rate [Anterior Bilateral Throughout] Blood Pressure 137/76 147/82 152/87 O2 Sat by Pulse 100 100 100 Oximetry 12/25/20 12/25/20 12/25/20 06:10 06:20 06:30 Temperature Pulse Rate 78 99 H 79 Pulse Rate [ Anterior Bilateral Throughout] Pulse Rate [ From Monitor] Respiratory 19 22 31 H Rate Respiratory Rate [Anterior Bilateral Throughout] Blood Pressure 152/87 148/82 149/77 O2 Sat by Pulse 100 100 100 Oximetry 12/25/20 12/25/20 12/25/20 06:39 06:40 06:50 Temperature Pulse Rate 87 78 79 Pulse Rate [ Anterior Bilateral Throughout] Pulse Rate [ From Monitor] Respiratory 22 31 H Rate Respiratory Rate [Anterior Bilateral Throughout] Blood Pressure 149/71 149/77 161/82 O2 Sat by Pulse 100 99 Oximetry 12/25/20 12/25/20 12/25/20 07:00 07:10 07:20 Temperature Pulse Rate 78 79 82 Pulse Rate [ Anterior Bilateral Throughout] Pulse Rate [ From Monitor] Respiratory 19 27 H 27 H Rate Respiratory Rate [Anterior Bilateral Throughout] Blood Pressure 153/82 153/82 151/71 O2 Sat by Pulse 100 100 100 Oximetry 12/25/20 12/25/20 12/25/20 07:30 07:40 07:45 Temperature 98.2 F Pulse Rate 81 80 Pulse Rate [ Anterior Bilateral Throughout] Pulse Rate [ From Monitor] Respiratory 30 H 32 H Rate Respiratory Rate [Anterior Bilateral Throughout] Blood Pressure 136/64 136/64 O2 Sat by Pulse 100 99 Oximetry 12/25/20 12/25/20 12/25/20 07:50 08:00 08:10 Temperature Pulse Rate 83 77 84 Pulse Rate [ Anterior Bilateral Throughout] Pulse Rate [ 83 From Monitor] Respiratory 34 H 29 H 16 Rate Respiratory Rate [Anterior Bilateral Throughout] Blood Pressure 143/68 143/68 143/68 O2 Sat by Pulse 100 100 100 Oximetry 12/25/20 12/25/20 12/25/20 08:16 08:20 08:30 Temperature 77 F L Pulse Rate 94 H 79 Pulse Rate [ Anterior Bilateral Throughout] Pulse Rate [ From Monitor] Respiratory 20 31 H Rate Respiratory Rate [Anterior Bilateral Throughout] Blood Pressure 143/68 143/68 O2 Sat by Pulse 99 100 Oximetry 12/25/20 12/25/20 12/25/20 08:40 08:50 08:55 Temperature Pulse Rate 82 81 Pulse Rate [ 86 Anterior Bilateral Throughout] Pulse Rate [ From Monitor] Respiratory 15 22 Rate Respiratory 20 Rate [Anterior Bilateral Throughout] Blood Pressure 143/68 143/68 O2 Sat by Pulse 100 100 Oximetry 12/25/20 12/25/20 12/25/20 09:00 09:10 09:20 Temperature Pulse Rate 83 84 82 Pulse Rate [ Anterior Bilateral Throughout] Pulse Rate [ From Monitor] Respiratory 32 H 25 H 27 H Rate Respiratory Rate [Anterior Bilateral Throughout] Blood Pressure 127/71 127/71 126/71 O2 Sat by Pulse 100 99 100 Oximetry 12/25/20 12/25/20 12/25/20 09:30 09:40 09:50 Temperature Pulse Rate 84 84 83 Pulse Rate [ Anterior Bilateral Throughout] Pulse Rate [ From Monitor] Respiratory 28 H 29 H 29 H Rate Respiratory Rate [Anterior Bilateral Throughout] Blood Pressure 112/68 112/68 110/62 O2 Sat by Pulse 99 99 99 Oximetry 12/25/20 12/25/20 12/25/20 10:00 10:10 10:20 Temperature Pulse Rate 83 84 85 Pulse Rate [ Anterior Bilateral Throughout] Pulse Rate [ From Monitor] Respiratory 26 H 27 H 28 H Rate Respiratory Rate [Anterior Bilateral Throughout] Blood Pressure 130/74 130/74 120/69 O2 Sat by Pulse 100 100 99 Oximetry 12/25/20 12/25/20 12/25/20 10:30 10:40 10:50 Temperature Pulse Rate 82 75 62 Pulse Rate [ Anterior Bilateral Throughout] Pulse Rate [ From Monitor] Respiratory 17 24 20 Rate Respiratory Rate [Anterior Bilateral Throughout] Blood Pressure 120/69 118/76 115/67 O2 Sat by Pulse 100 100 100 Oximetry 12/25/20 12/25/20 12/25/20 11:00 11:10 11:20 Temperature Pulse Rate 74 76 Pulse Rate [ Anterior Bilateral Throughout] Pulse Rate [ From Monitor] Respiratory 22 16 Rate Respiratory Rate [Anterior Bilateral Throughout] Blood Pressure 115/67 113/73 119/82 O2 Sat by Pulse 100 100 92 Oximetry 12/25/20 12/25/20 12/25/20 11:30 11:40 11:50 Temperature Pulse Rate Pulse Rate [ Anterior Bilateral Throughout] Pulse Rate [ From Monitor] Respiratory Rate Respiratory Rate [Anterior Bilateral Throughout] Blood Pressure 129/81 129/81 126/84 O2 Sat by Pulse 100 87 100 Oximetry 12/25/20 12/25/20 12/25/20 12:00 12:10 12:20 Temperature 97.9 F Pulse Rate 74 76 75 Pulse Rate [ Anterior Bilateral Throughout] Pulse Rate [ 74 From Monitor] Respiratory 25 H 30 H 28 H Rate Respiratory Rate [Anterior Bilateral Throughout] Blood Pressure 126/84 112/65 134/74 O2 Sat by Pulse 100 100 100 Oximetry 12/25/20 12/25/20 12/25/20 12:30 12:40 12:50 Temperature Pulse Rate 73 75 75 Pulse Rate [ Anterior Bilateral Throughout] Pulse Rate [ From Monitor] Respiratory 28 H 29 H 22 Rate Respiratory Rate [Anterior Bilateral Throughout] Blood Pressure 128/67 128/67 126/69 O2 Sat by Pulse 100 100 100 Oximetry 12/25/20 12/25/20 12/25/20 13:00 13:10 13:20 Temperature Pulse Rate 73 70 69 Pulse Rate [ Anterior Bilateral Throughout] Pulse Rate [ From Monitor] Respiratory 24 25 H 25 H Rate Respiratory Rate [Anterior Bilateral Throughout] Blood Pressure 119/66 128/67 112/64 O2 Sat by Pulse 100 100 100 Oximetry 12/25/20 12/25/20 13:30 13:34 Temperature Pulse Rate 70 71 Pulse Rate [ Anterior Bilateral Throughout] Pulse Rate [ From Monitor] Respiratory 26 H Rate Respiratory Rate [Anterior Bilateral Throughout] Blood Pressure 112/64 116/71 O2 Sat by Pulse 100 Oximetry - Labs CBC & Chem 7: 12/25/20 04:26 12/25/20 04:26 Labs: Abnormal lab results 12/24/20 12/24/20 12/25/20 Range/Units 11:10 16:00 04:26 RBC 2.39 L (3.65-5.03) M/mm3 Hgb 7.9 L (11.8-15.2) gm/dl Hct 23.3 L (35.5-45.6) % MCV 98 H (84-94) fl MCH 33 H (28-32) pg RDW 17.1 H (13.2-15.2) % Seg Neuts % (Manual) 91.0 H (40.0-70.0) % Lymphocytes % (Manual) 5.0 L (13.4-35.0) % Seg Neutrophils # Man 9.6 H (1.8-7.7) K/mm3 Lymphocytes # (Manual) 0.5 L (1.2-5.4) K/mm3 D-Dimer 1343.49 H (0-234) ng/mlDDU Sodium (137-145) mmol/L Carbon Dioxide (22-30) mmol/L BUN (9-20) mg/dL Glucose (75-100) mg/dL Calcium (8.4-10.2) mg/dL Coronavirus (PCR) Positive A (Negative) 12/25/20 Range/Units 04:26 RBC (3.65-5.03) M/mm3 Hgb (11.8-15.2) gm/dl Hct (35.5-45.6) % MCV (84-94) fl MCH (28-32) pg RDW (13.2-15.2) % Seg Neuts % (Manual) (40.0-70.0) % Lymphocytes % (Manual) (13.4-35.0) % Seg Neutrophils # Man (1.8-7.7) K/mm3 Lymphocytes # (Manual) (1.2-5.4) K/mm3 D-Dimer (0-234) ng/mlDDU Sodium 131 L (137-145) mmol/L Carbon Dioxide 18 L (22-30) mmol/L BUN 24 H (9-20) mg/dL Glucose 135 H (75-100) mg/dL Calcium 7.5 L D (8.4-10.2) mg/dL Coronavirus (PCR) (Negative) HEART Score - HEART Score Troponin: Troponin T 0.035 ng/mL (0.00-0.029) H 12/22/20 18:39
[2020-12-25] MEDS ORDERED: SODIUM BICARB 8.4% 50 MEQ/50 ML SYRINGE IV ONE (16:35)
[2020-12-25] MEDS: SODIUM BICARBONATE 650 MG TAB PO SCH (20:25)
[2020-12-25] MEDS: DEXAMETHASONE 2 MG TAB PO SCH (21:57)
[2020-12-25] MEDS: INSULIN REGULAR, HUMAN 100 UNITS/1 ML SUB-Q SCH (22:12)
[2020-12-26] MEDS: IPRATROPIUM/ALBUTEROL SULFATE 3 ML AMPUL.NEB IH SCH ×4 (02:31→20:42)
[2020-12-26 06:30] LABS: Calcium 8.6 mg/dL (8.4-10.2)
[2020-12-26] MEDS: INSULIN REGULAR, HUMAN 100 UNITS/1 ML SUB-Q SCH ×4 (09:39→22:32)
[2020-12-26] MEDS: CHOLECALCIFEROL (VIT D3) 5,000 UNIT TAB PO SCH (11:04)
[2020-12-26] MEDS: allopurinoL 100 MG TAB PO SCH (11:04)
[2020-12-26] MEDS: ASCORBIC ACID 500 MG TAB PO SCH ×2 (11:04→22:32)
[2020-12-26] MEDS: ZINC SULFATE 220 MG CAP PO SCH ×2 (11:04→22:32)
[2020-12-26] MEDS: carvediloL 6.25 MG TAB PO SCH ×2 (11:05→22:31)
[2020-12-26] MEDS: APIXABAN 2.5 MG TAB PO SCH ×2 (11:05→22:32)
[2020-12-26] MEDS: FOLIC ACID 1 MG TAB PO SCH (11:05)
[2020-12-26] MEDS: ASPIRIN 81 MG TAB CHEW PO SCH (11:06)
[2020-12-26] MEDS: ISOSORBIDE DINITRATE 20 MG TAB PO SCH ×3 (11:06→22:31)
[2020-12-26] MEDS: SODIUM BICARBONATE 650 MG TAB PO SCH ×3 (11:06→22:31)
[2020-12-26] MEDS: cefTRIAXone/NS 2 GM/100 ML 2 GM/100 ML BAG IV SCH (11:07)
--- NOTE | 2020-12-26 11:38 | Progress Note ---
Assessment and Plan Assessment and plan: -- Sepsis Likely due to pneumonia with COVID-19, Initiated Sepsis protocol: CBC, CMP, IV antibiotic therapy, blood culture, IV fluid resuscitation therapy, monitor urine output every shift, maintain mean arterial pressure greater than or equal to 65, monitor fluid balance, serial lactic acid level. --COVID-19 pneumonia -Continue isolation, patient started on dexamethasone 6 mg p.o. daily -Patient tested positive for COVID-19 virus 12/24 - CXR: Cardiomegaly with opacity in the right lung base, which may reflect pulmonary edema in the setting of CHF or may reflect atypical infectious or inflammatory pneumonitis. -Continue Zithromax and Rocephin as procalcitonin level is high -Placed on dexamethasone for total 10 days -No need for remdesivir as patient currently on room air -Infectious disease consulted, appreciate recommendations -Droplet/contact isolation -Continue SPO2 monitoring -Supplemental oxygen as needed -Pulmonary hygiene -Prone to sleep -Vitamin C, vitamin D, zinc -Anticoagulation per protocol -Lasix IV as needed to prevent pulmonary edema --Acute hypoxic respiratory failure, POA Likely from PNA, now resolved Required Bipap on admission, then supplemental O2 -- Toxic metabolic encephalopathy Likely due to sepsis and dehydration CT Head without any acute process, Continue neuro check, seizure precautions, aspiration precautions, treat sepsis -- MARY with vasomotor nephropathy, resolved Likely due to sepsis and underlying dehydration Nephrology team consulted, IV fluid resuscitation therapy, monitor urine output every shift, --Hypertension, resume home meds and adjust BP meds as needed --Diabetes mellitus type 2, continue consistent carb diet and SSI -- Hyponatremia syndrome Likely due to dehydration IV fluid resuscitation therapy, nephrology team consulted, repeat serum sodium --Metabolic acidosis Likely due to sepsis and dehydration IV fluid resuscitation therapy, IV bicarbonate therapy as needed, supportive care. --Elevated troponin, likely NSTEMI type II in light of elevated creatinine 2D echo ordered pending, patient denies any chest pain --Macrocytic anemia, ordered vitamin B12 and folic acid level Monitor H&H, no sign of active bleeding -- DVT prophylaxis SCD to bilateral lower extremities while in bed Brief History: The patient is a 50 YO male with history significant for Obesity, HTN, DM type 2, CKD, OA, Gout and CHF with unknown EF who presented to [facility] ED 12/22 for evaluation of AMS. Per family patient has experienced increased weakness and confusion of 1 day duration. Patient was transported thru EMS and suspected for CVA. A code stroke was called. The patient was found to have sepsis with possible pneumonia, toxic metabolic encephalopathy, acute kidney injury, hyponatremia, and metabolic acidosis. Patient initiated on sepsis protocol and admitted to [facility]. Labs on admission was significant for Creat 3.6, BUN 19, Sodium 119, bicarb 21 and wbc 23.4. Daily course: 12/23: Ordered for Covid test, continue Rocephin and Zithromax for now mental status significantly improved we will hold acyclovir for now. Will place on gentle hydration, will follow 2D echo. Continue to monitor CBC and BMP. off BiPAP 12/24: COVID-19 test result pending, 2D echo pending. Renal function improved. Sodium level also improving. Continue gentle hydration, continue IV antibiotics. Follow clinically. Patient on 4 L nasal cannula -wean off as tolerated. 12/25: Patient on room air today. Transfer to [facility]. Assess for home O2 requirement. Continue empiric antibiotic for total 5 days. Sodium and creatinine significantly improved today. If clinically stable possible DC erma geiger. 12/26: Will obtain Neurology eval, transfer to COVID unit. Renew restriants. Mental status does not appear to be at baseline yet. Patient with debility will also need PT considering lethargy and fall. History Interval history: Patient seen, remains confused. Also noted on restraints, per nursing staff patient almost fell. Hospitalist Physical - Physical exam Narrative exam: Limited physical exam due to COVID-19 pandemic to minimize transmission of the disease and to preserve PPE. Vital reviewed and stable. GENERAL: well-developed well-nourished lying on bed appeared to be in no discomfort. HEENT: Normocephalic. Atraumatic. NECK: Supple. CHEST/LUNGS: breathing nonlabored on N/c. HEART/CARDIOVASCULAR: Heart rate stable on telemetry ABDOMEN: Visibly not distended SKIN: There is no rash NEURO: No focal motor deficit. Follows command. MUSCULOSKELETAL: No joint effusion EXTRIMITY: No swelling, no cyanosis or clubbing. PSYCH: Cooperative. - Constitutional Vitals: Temp Pulse Resp BP Pulse Ox 97.9 F 80 20 157/89 100 12/26/20 07:00 12/26/20 08:16 12/26/20 08:16 12/26/20 04:20 12/26/20 07:30 General appearance: Present: mild distress HEART Score - HEART Score Troponin: Troponin T < 0.010 ng/mL (0.00-0.029) 12/25/20 14:54 Results - Labs CBC & Chem 7: 12/25/20 04:26 12/26/20 05:19 Labs: Laboratory Last Values WBC 10.5 K/mm3 (4.5-11.0) 12/25/20 04:26 RBC 2.39 M/mm3 (3.65-5.03) L 12/25/20 04:26 Hgb 7.9 gm/dl (11.8-15.2) L 12/25/20 04:26 Hct 23.3 % (35.5-45.6) L 12/25/20 04:26 MCV 98 fl (84-94) H 12/25/20 04:26 MCH 33 pg (28-32) H 12/25/20 04:26 MCHC 34 % (32-34) 12/25/20 04:26 RDW 17.1 % (13.2-15.2) H 12/25/20 04:26 Plt Count 211 K/mm3 (140-440) 12/25/20 04:26 Lymph % (Auto) 3.8 % (13.4-35.0) L 12/24/20 05:34 [place] % (Auto) 6.6 % (0.0-7.3) 12/24/20 05:34 Eos % (Auto) 0.5 % (0.0-4.3) 12/24/20 05:34 Baso % (Auto) 0.5 % (0.0-1.8) 12/24/20 05:34 Lymph # (Auto) 0.6 K/mm3 (1.2-5.4) L 12/24/20 05:34 [place] # (Auto) 1.0 K/mm3 (0.0-0.8) H 12/24/20 05:34 Eos # (Auto) 0.1 K/mm3 (0.0-0.4) 12/24/20 05:34 Baso # (Auto) 0.1 K/mm3 (0.0-0.1) 12/24/20 05:34 Add Manual Diff Complete 12/25/20 04:26 Total Counted 100 12/25/20 04:26 Seg Neutrophils % Chef German 12/25/20 04:26 Seg Neuts % (Manual) 91.0 % (40.0-70.0) H 12/25/20 04:26 Band Neutrophils % 8.0 % 12/23/20 04:50 Lymphocytes % (Manual) 5.0 % (13.4-35.0) L 12/25/20 04:26 Monocytes % (Manual) 4.0 % (0.0-7.3) 12/25/20 04:26 Nucleated RBC % Not Reportable 12/25/20 04:26 Seg Neutrophils # 13.6 K/mm3 (1.8-7.7) H 12/24/20 05:34 Seg Neutrophils # Man 9.6 K/mm3 (1.8-7.7) H 12/25/20 04:26 Band Neutrophils # 0.0 K/mm3 12/25/20 04:26 Lymphocytes # (Manual) 0.5 K/mm3 (1.2-5.4) L 12/25/20 04:26 Abs React Lymphs (Man) 0.0 K/mm3 12/25/20 04:26 Monocytes # (Manual) 0.4 K/mm3 (0.0-0.8) 12/25/20 04:26 Eosinophils # (Manual) 0.0 K/mm3 (0.0-0.4) 12/25/20 04:26 Basophils # (Manual) 0.0 K/mm3 (0.0-0.1) 12/25/20 04:26 Metamyelocytes # 0.0 K/mm3 12/25/20 04:26 Myelocytes # 0.0 K/mm3 12/25/20 04:26 Promyelocytes # 0.0 K/mm3 12/25/20 04:26 Blast Cells # 0.0 K/mm3 12/25/20 04:26 WBC Morphology Not Reportable 12/25/20 04:26 Hypersegmented Neuts Not Reportable 12/25/20 04:26 Hyposegmented Neuts Not Reportable 12/25/20 04:26 Hypogranular Neuts Not Reportable 12/25/20 04:26 Smudge Cells Not Reportable 12/25/20 04:26 Toxic Granulation Not Reportable 12/25/20 04:26 Toxic Vacuolation Not Reportable 12/25/20 04:26 Dohle Bodies Not Reportable 12/25/20 04:26 Pelger-Huet Anomaly Not Reportable 12/25/20 04:26 Norm Rods Not Reportable 12/25/20 04:26 Platelet Estimate Consistent w auto 12/25/20 04:26 Clumped Platelets Not Reportable 12/25/20 04:26 Plt Clumps, EDTA Not Reportable 12/25/20 04:26 Large Platelets Not Reportable 12/25/20 04:26 Giant Platelets Not Reportable 12/25/20 04:26 Platelet Satelliting Not Reportable 12/25/20 04:26 Plt Morphology Comment Not Reportable 12/25/20 04:26 RBC Morphology Not Reportable 12/25/20 04:26 Dimorphic RBCs Not Reportable 12/25/20 04:26 Polychromasia Not Reportable 12/25/20 04:26 Hypochromasia 1+ 12/25/20 04:26 Poikilocytosis Not Reportable 12/25/20 04:26 Anisocytosis Few 12/25/20 04:26 Microcytosis Not Reportable 12/25/20 04:26 Macrocytosis Few 12/25/20 04:26 Spherocytes Few 12/25/20 04:26 Pappenheimer Bodies Not Reportable 12/25/20 04:26 Sickle Cells Not Reportable 12/25/20 04:26 Target Cells Few 12/25/20 04:26 Tear Drop Cells Not Reportable 12/25/20 04:26 Ovalocytes Not Reportable 12/25/20 04:26 Helmet Cells Not Reportable 12/25/20 04:26 Rogers-Chauvin Bodies Not Reportable 12/25/20 04:26 Thurmond Rings Not Reportable 12/25/20 04:26 Morelia Cells Not Reportable 12/25/20 04:26 Bite Cells Not Reportable 12/25/20 04:26 Crenated Cell Not Reportable 12/25/20 04:26 Elliptocytes Not Reportable 12/25/20 04:26 Acanthocytes (Spur) Not Reportable 12/25/20 04:26 Rouleaux Not Reportable 12/25/20 04:26 Hemoglobin C Crystals Not Reportable 12/25/20 04:26 Schistocytes Few 12/25/20 04:26 Malaria parasites Not Reportable 12/25/20 04:26 Alexei Bodies Not Reportable 12/25/20 04:26 Hem Pathologist Commnt No 12/25/20 04:26 PT 14.7 Sec. (12.2-14.9) 12/22/20 18:39 INR 1.15 (0.87-1.13) H 12/22/20 18:39 APTT 38.8 Sec. (24.2-36.6) H 12/22/20 18:39 Thrombin Time 16.8 Sec. (15.1-19.6) 12/22/20 18:39 D-Dimer 1343.49 ng/mlDDU (0-234) H 12/24/20 16:00 ABG pH 7.484 (7.320-7.450) H 12/23/20 00:23 POC ABG pCO2 24.9 mmHg (32.0-48.0) L 12/23/20 00:23 POC ABG pO2 80.9 mmHg (83-108) L 12/23/20 00:23 POC ABG HCO3 18.3 12/23/20 00:23 POC ABG Base Excess -3.9 12/23/20 00:23 ABG Hemoglobin 10.4 (12.0-17.5) L 12/23/20 00:23 ABG Sodium 123.4 mmol/L (136.0-145.0) L 12/23/20 00:23 ABG Potassium 4.2 mmol/L (3.40-4.50) 12/23/20 00:23 ABG Chloride 95.0 mmol/L (98-107) L 12/23/20 00:23 ABG Glucose 77 mg/dL (65-95) 12/23/20 00:23 FiO2 28 12/23/20 00:23 Sodium 134 mmol/L (137-145) L 12/26/20 05:19 Potassium 4.1 mmol/L (3.6-5.0) 12/26/20 05:19 Chloride 98.8 mmol/L (98-107) 12/26/20 05:19 Carbon Dioxide 22 mmol/L (22-30) 12/26/20 05:19 Anion Gap 17 mmol/L 12/26/20 05:19 BUN 27 mg/dL (9-20) H 12/26/20 05:19 Creatinine 1.6 mg/dL (0.8-1.3) H 12/26/20 05:19 Estimated GFR 56 ml/min 12/26/20 05:19 BUN/Creatinine Ratio 17 % 12/26/20 05:19 Glucose 156 mg/dL (75-100) H 12/26/20 05:19 POC Glucose 120 mg/dL (70-105) H 12/26/20 08:58 Lactic Acid 1.30 mmol/L (0.7-2.0) 12/23/20 04:50 Calcium 8.6 mg/dL (8.4-10.2) 12/26/20 05:19 Total Bilirubin 0.20 mg/dL (0.1-1.2) 12/23/20 04:50 AST 32 units/L (5-40) 12/23/20 04:50 ALT 10 units/L (7-56) 12/23/20 04:50 Alkaline Phosphatase 49 units/L (35-129) 12/23/20 04:50 Troponin T < 0.010 ng/mL (0.00-0.029) 12/25/20 14:54 Total Protein 5.9 g/dL (6.3-8.2) L 12/23/20 04:50 Albumin 2.3 g/dL (3.9-5) L 12/23/20 04:50 Albumin/Globulin Ratio 0.6 % 12/23/20 04:50 Triglycerides 121 mg/dL (2-149) 12/22/20 18:39 Cholesterol 92 mg/dL (50-199) 12/22/20 18:39 LDL Cholesterol Direct 10 mg/dL (50-130) L 12/22/20 18:39 HDL Cholesterol 66 mg/dL (40-59) H 12/22/20 18:39 Cholesterol/HDL Ratio 1.39 % 12/22/20 18:39 Vitamin B12 448.2 pg/mL (211-911) 12/25/20 14:59 Procalcitonin 33.83 ng/mL (<0.15) 12/24/20 18:00 Arterial Blood Glucose 77 mg/dL (65-95) 12/23/20 00:23 Arterial Blood Ionized Calcium 3.7 mg/dL (4.6-5.3) L 12/23/20 00:23 Urine Color [place] (Yellow) 12/22/20 23:18 Urine Turbidity Slightly-cloudy (Clear) 12/22/20 23:18 Urine pH 5.0 (5.0-7.0) 12/22/20 23:18 Ur Specific [place] 1.015 (1.003-1.030) 12/22/20 23:18 Urine Protein 100 mg/dl mg/dL (Negative) 12/22/20 23:18 Urine Glucose (UA) Neg mg/dL (Negative) 12/22/20 23:18 Urine Ketones Neg mg/dL (Negative) 12/22/20 23:18 Urine Blood Sm (Negative) 12/22/20 23:18 Urine Nitrite Neg (Negative) 12/22/20 23:18 Urine Bilirubin Neg (Negative) 12/22/20 23:18 Urine Urobilinogen 4.0 mg/dL (<2.0) 12/22/20 23:18 Ur Leukocyte Esterase Neg (Negative) 12/22/20 23:18 Urine WBC (Auto) 2.0 /HPF (0.0-6.0) 12/22/20 23:18 Urine RBC (Auto) 6.0 /HPF (0.0-6.0) 12/22/20 23:18 U Epithel Cells (Auto) 1.0 /HPF (0-13.0) 12/22/20 23:18 Hyaline Casts 8 /LPF 12/22/20 23:18 Urine Mucus Few /HPF 12/22/20 23:18 Urine Yeast (Budding) 1+ /HPF 12/22/20 23:18 Urine Creatinine 233.3 mg/dL (0.1-20.0) H 12/22/20 23:18 Urine Sodium 32 mmol/L 12/22/20 23:18 Coronavirus (PCR) Positive (Negative) A 12/24/20 11:10 Blood Type O POSITIVE 12/22/20 19:38 Antibody Screen Negative 12/22/20 19:38 Microbiology: Microbiology 12/22/20 19:38 Peripheral/Venous Blood Culture - Preliminary NO GROWTH AFTER 72 HOURS 12/22/20 19:38 Peripheral/Venous Blood Culture - Preliminary NO GROWTH AFTER 72 HOURS 12/22/20 Unknown Urine,Catheterized - Straight Catheter Urine Culture - Final NO GROWTH AFTER 48 HOURS Waters/IV: Voiding Method Urinal Active Medications - Current Medications Current Medications: Generic Name Dose Route Start Last Admin Trade Name Freq PRN Reason Stop Dose Admin Acetaminophen 650 mg 12/22/20 19:29 12/23/20 19:52 Acetaminophen 325 Mg Tab PO 650 mg Q4H PRN Administration Pain MILD(1-3)/Fever >100.5/HARP Albuterol/Ipratropium 1 ampul 12/23/20 15:00 12/26/20 08:00 Ipratropium/Albuterol Sulfate 3 Ml Ampul.Neb IH 1 ampul Q6HRT AGUS Administration Allopurinol 100 mg 12/24/20 10:00 12/26/20 11:04 Allopurinol 100 Mg Tab PO 100 mg QDAY AGUS Administration Apixaban 2.5 mg 12/25/20 11:00 12/26/20 11:05 Apixaban 2.5 Mg Tab PO 2.5 mg Q12HR AGUS Administration Protocol Ascorbic Acid 1,000 mg 12/24/20 22:00 12/26/20 11:04 Ascorbic Acid 500 Mg Tab PO 1,000 mg BID AGUS Administration Aspirin 81 mg 12/24/20 10:00 12/26/20 11:06 Aspirin 81 Mg Tab Chew PO 81 mg DAILY AGUS Administration Carvedilol 6.25 mg 12/23/20 22:00 12/26/20 11:05 Carvedilol 6.25 Mg Tab PO 6.25 mg BID AGUS Administration Cholecalciferol 5,000 unit 12/25/20 10:00 12/26/20 11:04 Cholecalciferol (Vit D3) 5,000 Unit Tab PO 5,000 unit DAILY AGUS Administration Dexamethasone 6 mg 12/24/20 18:00 12/25/20 21:57 Dexamethasone 2 Mg Tab PO 01/02/21 18:01 6 mg Q24H AGUS Administration Dextrose 50 ml 12/23/20 11:11 Dextrose 50% In Water (25gm) 50 Ml Syringe IV Q30MIN PRN Hypoglycemia Protocol Folic Acid 1 mg 12/24/20 10:00 12/26/20 11:05 Folic Acid 1 Mg Tab PO 1 mg QDAY AGUS Administration Hydralazine HCl 50 mg 12/26/20 06:17 Hydralazine 25 Mg Tab PO Q8HR AGUS Hydromorphone HCl 0.25 mg 12/22/20 19:29 12/24/20 03:40 Hydromorphone 1 Mg/1 Ml Inj IV 0.25 mg Q4H PRN Administration Pain, Moderate (4-6) Azithromycin 500 mg in 250 mls @ 250 mls/hr 12/23/20 12:00 12/25/20 11:02 Zithromax/Ns IV 12/27/20 12:59 250 mls/hr Q24H AGUS Administration Ceftriaxone Sodium 2 gm in 100 mls @ 200 mls/hr 12/24/20 08:00 12/26/20 11:07 Rocephin/Ns 2 Gm/100 Ml IV 12/28/20 08:29 200 mls/hr Q24H REPLACED BY [facility] Administration Protocol Insulin Human Regular 0 units 12/25/20 16:30 12/26/20 09:39 Insulin Regular, Human 100 Units/1 Ml SUB-Q Not Given ACHS REPLACED BY [facility] Protocol Isosorbide Dinitrate 20 mg 12/23/20 20:00 12/26/20 11:06 Isosorbide Dinitrate 20 Mg Tab PO 20 mg TID AGUS Administration Ondansetron HCl 4 mg 12/22/20 19:29 12/23/20 16:45 Ondansetron 4 Mg/2 Ml Inj IV 4 mg Q8H PRN Administration Nausea And Vomiting Sodium Bicarbonate 650 mg 12/25/20 20:00 12/26/20 11:06 Sodium Bicarbonate 650 Mg Tab PO 650 mg TID AGUS Administration Sodium Chloride 10 ml 12/22/20 22:00 12/26/20 11:05 Sodium Chloride 0.9% 10 Ml Flush Syringe IV 10 ml BID AGUS Administration Sodium Chloride 10 ml 12/22/20 19:29 Sodium Chloride 0.9% 10 Ml Flush Syringe IV PRN PRN LINE FLUSH Zinc Sulfate 220 mg 12/24/20 22:00 12/26/20 11:04 Zinc Sulfate 220 Mg Cap PO 220 mg BID AGUS Administration
--- NOTE | 2020-12-26 11:57 | Progress Note ---
Assessment and Plan 1. Acute kidney injury: Vasomotor MARY superimposed on CKD. Low FeNa. Renal US ordered. Monitor renal function. Creatinine level is better. Avoid nephrotoxic agents. Meds dosage based on GFR. 2. FEN: Metabolic acidosis, start on Sod bicarb, monitor. Hyponatremia, Sod bicarb, monitor. Monitor lytes. 3. Acute respiratory failure: CXR showed right lung base opacity. Patient positive for COVID-19 test. Was on BIPAP. Decadron. 4. Sepsis: 2/2 PNA. Continue Abx and follow culture results. 5. Toxic metabolic encephalopathy: Improved. 6. Anemia, POA: Monitor. 7. DM type 2: Monitor blood glucose. 8. Hypertension: Monitor. Subjective: Patient was seen and examined at the bedside. Doing ok. Examination: General appearance: well-developed, appears stated age, obese, on RA HEENT: ATNC, Pupils equal Neck: Trachea midline Respiratory: ctab Cardiology: regular, S1S2, no murmur Gastrointestinal: normoactive bowel sounds, no tenderness, not distended, obese Integumentary: warm and dry, scattered eczema, LE chronic changes Neurologic: alert, conversing, able to move extremities Ext: trace LE edema Subjective Date of service: 12/26/20 Objective - Vital Signs Vital signs: Vital Signs - 12hr 12/26/20 12/26/20 12/26/20 00:00 00:10 00:20 Temperature 97.3 F L Pulse Rate 81 80 74 Pulse Rate [ Anterior Bilateral Throughout] Pulse Rate [ 73 From Monitor] Respiratory 21 15 26 H Rate Respiratory Rate [Anterior Bilateral Throughout] Blood Pressure 110/67 130/70 147/79 O2 Sat by Pulse 100 99 100 Oximetry 12/26/20 12/26/20 12/26/20 00:30 00:40 00:50 Temperature Pulse Rate 76 80 77 Pulse Rate [ Anterior Bilateral Throughout] Pulse Rate [ From Monitor] Respiratory 22 26 H 24 Rate Respiratory Rate [Anterior Bilateral Throughout] Blood Pressure 154/83 154/83 157/89 O2 Sat by Pulse 99 100 100 Oximetry 12/26/20 12/26/20 12/26/20 01:00 01:10 01:20 Temperature Pulse Rate 82 83 76 Pulse Rate [ Anterior Bilateral Throughout] Pulse Rate [ From Monitor] Respiratory 21 17 22 Rate Respiratory Rate [Anterior Bilateral Throughout] Blood Pressure 157/89 140/84 144/75 O2 Sat by Pulse 94 88 Oximetry 12/26/20 12/26/20 12/26/20 01:30 01:40 01:50 Temperature Pulse Rate 75 76 76 Pulse Rate [ Anterior Bilateral Throughout] Pulse Rate [ From Monitor] Respiratory 24 15 20 Rate Respiratory Rate [Anterior Bilateral Throughout] Blood Pressure 154/76 154/76 154/76 O2 Sat by Pulse Oximetry 12/26/20 12/26/20 12/26/20 02:00 02:10 02:20 Temperature Pulse Rate 75 76 79 Pulse Rate [ Anterior Bilateral Throughout] Pulse Rate [ From Monitor] Respiratory 25 H 23 27 H Rate Respiratory Rate [Anterior Bilateral Throughout] Blood Pressure 139/70 139/70 146/71 O2 Sat by Pulse 93 95 Oximetry 12/26/20 12/26/20 12/26/20 02:30 02:40 02:50 Temperature Pulse Rate 76 76 94 H Pulse Rate [ Anterior Bilateral Throughout] Pulse Rate [ From Monitor] Respiratory 24 21 29 H Rate Respiratory Rate [Anterior Bilateral Throughout] Blood Pressure 139/71 139/71 110/80 O2 Sat by Pulse 93 Oximetry 12/26/20 12/26/20 12/26/20 03:00 03:10 03:20 Temperature Pulse Rate 78 73 73 Pulse Rate [ Anterior Bilateral Throughout] Pulse Rate [ From Monitor] Respiratory 16 12 17 Rate Respiratory Rate [Anterior Bilateral Throughout] Blood Pressure 110/80 153/92 164/100 O2 Sat by Pulse Oximetry 12/26/20 12/26/20 12/26/20 03:30 03:40 03:50 Temperature Pulse Rate 68 65 73 Pulse Rate [ Anterior Bilateral Throughout] Pulse Rate [ From Monitor] Respiratory 18 21 16 Rate Respiratory Rate [Anterior Bilateral Throughout] Blood Pressure 162/96 162/96 169/95 O2 Sat by Pulse Oximetry 12/26/20 12/26/20 12/26/20 04:00 04:10 04:20 Temperature 98.4 F Pulse Rate 68 74 74 Pulse Rate [ Anterior Bilateral Throughout] Pulse Rate [ 79 From Monitor] Respiratory 9 L 17 19 Rate Respiratory Rate [Anterior Bilateral Throughout] Blood Pressure 169/95 164/92 157/89 O2 Sat by Pulse 100 100 100 Oximetry 12/26/20 12/26/20 12/26/20 04:30 04:40 04:50 Temperature Pulse Rate 80 86 96 H Pulse Rate [ Anterior Bilateral Throughout] Pulse Rate [ From Monitor] Respiratory 20 25 H 19 Rate Respiratory Rate [Anterior Bilateral Throughout] Blood Pressure O2 Sat by Pulse 100 87 100 Oximetry 12/26/20 12/26/20 12/26/20 05:00 05:10 05:20 Temperature Pulse Rate 89 89 81 Pulse Rate [ Anterior Bilateral Throughout] Pulse Rate [ From Monitor] Respiratory 17 29 H 20 Rate Respiratory Rate [Anterior Bilateral Throughout] Blood Pressure O2 Sat by Pulse 100 100 Oximetry 12/26/20 12/26/20 12/26/20 05:30 05:40 05:50 Temperature Pulse Rate 72 81 80 Pulse Rate [ Anterior Bilateral Throughout] Pulse Rate [ From Monitor] Respiratory 17 19 12 Rate Respiratory Rate [Anterior Bilateral Throughout] Blood Pressure O2 Sat by Pulse Oximetry 12/26/20 12/26/20 12/26/20 06:00 06:10 06:20 Temperature Pulse Rate 92 H 81 83 Pulse Rate [ Anterior Bilateral Throughout] Pulse Rate [ From Monitor] Respiratory 17 21 17 Rate Respiratory Rate [Anterior Bilateral Throughout] Blood Pressure O2 Sat by Pulse 100 100 Oximetry 12/26/20 12/26/20 12/26/20 06:30 06:40 06:50 Temperature Pulse Rate 77 83 84 Pulse Rate [ Anterior Bilateral Throughout] Pulse Rate [ From Monitor] Respiratory 17 22 20 Rate Respiratory Rate [Anterior Bilateral Throughout] Blood Pressure O2 Sat by Pulse 100 100 100 Oximetry 12/26/20 12/26/20 12/26/20 07:00 07:10 07:20 Temperature 97.9 F Pulse Rate 81 85 81 Pulse Rate [ Anterior Bilateral Throughout] Pulse Rate [ From Monitor] Respiratory 22 24 22 Rate Respiratory Rate [Anterior Bilateral Throughout] Blood Pressure O2 Sat by Pulse 100 100 100 Oximetry 12/26/20 12/26/20 07:30 08:16 Temperature Pulse Rate 75 Pulse Rate [ 80 Anterior Bilateral Throughout] Pulse Rate [ From Monitor] Respiratory 22 Rate Respiratory 20 Rate [Anterior Bilateral Throughout] Blood Pressure O2 Sat by Pulse 100 Oximetry - Lab 12/25/20 04:26 12/26/20 05:19 Most recent lab results ABG pH 7.484 (7.320-7.450) H 12/23/20 00:23 Calcium 8.6 mg/dL (8.4-10.2) 12/26/20 05:19 Urine Creatinine 233.3 mg/dL (0.1-20.0) H 12/22/20 23:18 Urine Sodium 32 mmol/L 12/22/20 23:18 Medications & Allergies - Medications Allergies/Adverse Reactions: Allergies No Known Allergies Allergy (Unverified 01/19/20 19:36) Home Medications: Home Medications Medication Instructions Recorded Confirmed Last Taken Type Aspirin [Aspirin BABY CHEW TAB] 81 mg PO DAILY 12/23/20 12/23/20 Unknown History Folic Acid [Folvite] 1 mg PO QDAY 12/23/20 12/23/20 Unknown History Insulin Glargine [Lantus VIAL] 25 unit SUB-Q QHS 12/23/20 12/23/20 Unknown History Isosorbide Dinitrate [Isordil] 20 mg PO TID 12/23/20 12/23/20 Unknown History Lispro Insulin [HumaLOG] 5 unit SQ TID 12/23/20 12/23/20 Unknown History Torsemide [Demadex] 100 mg PO QDAY 12/23/20 12/23/20 Unknown History allopurinoL [Zyloprim] 100 mg PO QDAY 12/23/20 12/23/20 Unknown History carvediloL [Coreg] 6.25 mg PO BID 12/23/20 12/23/20 Unknown History hydrALAZINE [Apresoline] 25 mg PO Q8HR 12/23/20 12/23/20 Unknown History metFORMIN [Glucophage] 500 mg PO BID 12/23/20 12/23/20 Unknown History Active Medications: Generic Name Dose Route Start Last Admin Trade Name Freq PRN Reason Stop Dose Admin Acetaminophen 650 mg 12/22/20 19:29 12/23/20 19:52 Acetaminophen 325 Mg Tab PO 650 mg Q4H PRN Administration Pain MILD(1-3)/Fever >100.5/HARP Albuterol/Ipratropium 1 ampul 12/23/20 15:00 12/26/20 08:00 Ipratropium/Albuterol Sulfate 3 Ml Ampul.Neb IH 1 ampul Q6HRT AGUS Administration Allopurinol 100 mg 12/24/20 10:00 12/26/20 11:04 Allopurinol 100 Mg Tab PO 100 mg QDAY AGUS Administration Apixaban 2.5 mg 12/25/20 11:00 12/26/20 11:05 Apixaban 2.5 Mg Tab PO 2.5 mg Q12HR AGUS Administration Protocol Ascorbic Acid 1,000 mg 12/24/20 22:00 12/26/20 11:04 Ascorbic Acid 500 Mg Tab PO 1,000 mg BID AGUS Administration Aspirin 81 mg 12/24/20 10:00 12/26/20 11:06 Aspirin 81 Mg Tab Chew PO 81 mg DAILY AGUS Administration Carvedilol 6.25 mg 12/23/20 22:00 12/26/20 11:05 Carvedilol 6.25 Mg Tab PO 6.25 mg BID AGUS Administration Cholecalciferol 5,000 unit 12/25/20 10:00 12/26/20 11:04 Cholecalciferol (Vit D3) 5,000 Unit Tab PO 5,000 unit DAILY AGUS Administration Dexamethasone 6 mg 12/24/20 18:00 12/25/20 21:57 Dexamethasone 2 Mg Tab PO 01/02/21 18:01 6 mg Q24H AGUS Administration Dextrose 50 ml 12/23/20 11:11 Dextrose 50% In Water (25gm) 50 Ml Syringe IV Q30MIN PRN Hypoglycemia Protocol Folic Acid 1 mg 12/24/20 10:00 12/26/20 11:05 Folic Acid 1 Mg Tab PO 1 mg QDAY AGUS Administration Hydralazine HCl 50 mg 12/26/20 06:17 Hydralazine 25 Mg Tab PO Q8HR AGUS Hydromorphone HCl 0.25 mg 12/22/20 19:29 12/24/20 03:40 Hydromorphone 1 Mg/1 Ml Inj IV 0.25 mg Q4H PRN Administration Pain, Moderate (4-6) Azithromycin 500 mg in 250 mls @ 250 mls/hr 12/23/20 12:00 12/25/20 11:02 Zithromax/Ns IV 12/27/20 12:59 250 mls/hr Q24H AGUS Administration Ceftriaxone Sodium 2 gm in 100 mls @ 200 mls/hr 12/24/20 08:00 12/26/20 11:07 Rocephin/Ns 2 Gm/100 Ml IV 12/28/20 08:29 200 mls/hr Q24H AGUS Administration Protocol Insulin Human Regular 0 units 12/25/20 16:30 12/26/20 09:39 Insulin Regular, Human 100 Units/1 Ml SUB-Q Not Given ACHS [facility] Protocol Isosorbide Dinitrate 20 mg 12/23/20 20:00 12/26/20 11:06 Isosorbide Dinitrate 20 Mg Tab PO 20 mg TID AGUS Administration Ondansetron HCl 4 mg 12/22/20 19:29 12/23/20 16:45 Ondansetron 4 Mg/2 Ml Inj IV 4 mg Q8H PRN Administration Nausea And Vomiting Sodium Bicarbonate 650 mg 12/25/20 20:00 12/26/20 11:06 Sodium Bicarbonate 650 Mg Tab PO 650 mg TID AGUS Administration Sodium Chloride 10 ml 12/22/20 22:00 12/26/20 11:05 Sodium Chloride 0.9% 10 Ml Flush Syringe IV 10 ml BID AGUS Administration Sodium Chloride 10 ml 12/22/20 19:29 Sodium Chloride 0.9% 10 Ml Flush Syringe IV PRN PRN LINE FLUSH Zinc Sulfate 220 mg 12/24/20 22:00 12/26/20 11:04 Zinc Sulfate 220 Mg Cap PO 220 mg BID AGUS Administration
--- NOTE | 2020-12-26 12:03 | Consultation ---
History of Present Illness Consult date: 12/26/20 Reason for Consult: AMS Chief complaint: Encephaopathy History of present illness: 50 yo male with htn, dm, chf, ckdx, hypoventilation syndrome w/ obesity, oa, gout, who presented initialy w/ 1 day of lethargy and generalized weakness. Noted initially upon admission with sepsis and hospital course revealed covid-19 infection w/ possible pneumonia. Patient is noted to be altered during the hospital course. Initial telestroke evaluation led to no acute intervention. Past History Past Medical History: diabetes, heart failure, hypertension, renal failure, other (See HPI) Past Surgical History: No surgical history, Other (Reviewed) Social history: single. denies: smoking, alcohol abuse, prescription drug abuse Family history: diabetes, hypertension Medications and Allergies Allergies Allergy/AdvReac Type Severity Reaction Status Date / Time No Known Allergies Allergy Unverified 01/19/20 19:36 Home Medications Medication Instructions Recorded Confirmed Last Taken Type Aspirin [Aspirin BABY CHEW TAB] 81 mg PO DAILY 12/23/20 12/23/20 Unknown History Folic Acid [Folvite] 1 mg PO QDAY 12/23/20 12/23/20 Unknown History Insulin Glargine [Lantus VIAL] 25 unit SUB-Q QHS 12/23/20 12/23/20 Unknown History Isosorbide Dinitrate [Isordil] 20 mg PO TID 12/23/20 12/23/20 Unknown History Lispro Insulin [HumaLOG] 5 unit SQ TID 12/23/20 12/23/20 Unknown History Torsemide [Demadex] 100 mg PO QDAY 12/23/20 12/23/20 Unknown History allopurinoL [Zyloprim] 100 mg PO QDAY 12/23/20 12/23/20 Unknown History carvediloL [Coreg] 6.25 mg PO BID 12/23/20 12/23/20 Unknown History hydrALAZINE [Apresoline] 25 mg PO Q8HR 12/23/20 12/23/20 Unknown History metFORMIN [Glucophage] 500 mg PO BID 12/23/20 12/23/20 Unknown History Active Meds: Active Medications Acetaminophen (Acetaminophen 325 Mg Tab) 650 mg PO Q4H PRN PRN Reason: Pain MILD(1-3)/Fever >100.5/HARP Last Admin: 12/23/20 19:52 Dose: 650 mg Documented by: Albuterol/Ipratropium (Ipratropium/Albuterol Sulfate 3 Ml Ampul.Neb) 1 ampul IH Q6HRT [facility] Last Admin: 12/26/20 08:00 Dose: 1 ampul Documented by: Allopurinol (Allopurinol 100 Mg Tab) 100 mg PO QDAY [facility] Last Admin: 12/26/20 11:04 Dose: 100 mg Documented by: Apixaban (Apixaban 2.5 Mg Tab) 2.5 mg PO Q12HR [facility]; Protocol Last Admin: 12/26/20 11:05 Dose: 2.5 mg Documented by: Ascorbic Acid (Ascorbic Acid 500 Mg Tab) 1,000 mg PO BID [facility] Last Admin: 12/26/20 11:04 Dose: 1,000 mg Documented by: Aspirin (Aspirin 81 Mg Tab Chew) 81 mg PO DAILY [facility] Last Admin: 12/26/20 11:06 Dose: 81 mg Documented by: Carvedilol (Carvedilol 6.25 Mg Tab) 6.25 mg PO BID [facility] Last Admin: 12/26/20 11:05 Dose: 6.25 mg Documented by: Cholecalciferol (Cholecalciferol (Vit D3) 5,000 Unit Tab) 5,000 unit PO DAILY [facility] Last Admin: 12/26/20 11:04 Dose: 5,000 unit Documented by: Dexamethasone (Dexamethasone 2 Mg Tab) 6 mg PO Q24H [facility] Stop: 01/02/21 18:01 Last Admin: 12/25/20 21:57 Dose: 6 mg Documented by: Dextrose (Dextrose 50% In Water (25gm) 50 Ml Syringe) 50 ml IV Q30MIN PRN; Protocol PRN Reason: Hypoglycemia Folic Acid (Folic Acid 1 Mg Tab) 1 mg PO QDAY [facility] Last Admin: 12/26/20 11:05 Dose: 1 mg Documented by: Hydralazine HCl (Hydralazine 25 Mg Tab) 50 mg PO Q8HR [facility] Hydromorphone HCl (Hydromorphone 1 Mg/1 Ml Inj) 0.25 mg IV Q4H PRN PRN Reason: Pain, Moderate (4-6) Last Admin: 12/24/20 03:40 Dose: 0.25 mg Documented by: Azithromycin (Zithromax/Ns) 500 mg in 250 mls @ 250 mls/hr IV Q24H [facility] Stop: 12/27/20 12:59 Last Admin: 12/25/20 11:02 Dose: 250 mls/hr Documented by: Ceftriaxone Sodium (Rocephin/Ns 2 Gm/100 Ml) 2 gm in 100 mls @ 200 mls/hr IV Q24H [facility]; Protocol Stop: 12/28/20 08:29 Last Admin: 12/26/20 11:07 Dose: 200 mls/hr Documented by: Insulin Human Regular (Insulin Regular, Human 100 Units/1 Ml) 0 units SUB-Q ACHS [facility]; Protocol Last Admin: 12/26/20 09:39 Dose: Not Given Documented by: Isosorbide Dinitrate (Isosorbide Dinitrate 20 Mg Tab) 20 mg PO TID [facility] Last Admin: 12/26/20 11:06 Dose: 20 mg Documented by: Ondansetron HCl (Ondansetron 4 Mg/2 Ml Inj) 4 mg IV Q8H PRN PRN Reason: Nausea And Vomiting Last Admin: 12/23/20 16:45 Dose: 4 mg Documented by: Sodium Bicarbonate (Sodium Bicarbonate 650 Mg Tab) 650 mg PO TID [facility] Last Admin: 12/26/20 11:06 Dose: 650 mg Documented by: Sodium Chloride (Sodium Chloride 0.9% 10 Ml Flush Syringe) 10 ml IV BID [facility] Last Admin: 12/26/20 11:05 Dose: 10 ml Documented by: Sodium Chloride (Sodium Chloride 0.9% 10 Ml Flush Syringe) 10 ml IV PRN PRN PRN Reason: LINE FLUSH Zinc Sulfate (Zinc Sulfate 220 Mg Cap) 220 mg PO BID [facility] Last Admin: 12/26/20 11:04 Dose: 220 mg Documented by: Physical Examination - Vital Signs Vital Signs: Vital Signs Temp Pulse Resp BP Pulse Ox 98.2 F 95 H 28 H 126/78 100 12/22/20 19:40 12/22/20 19:40 12/22/20 19:40 12/22/20 19:40 12/22/20 19:40 - Physical Exam Narrative exam: Patient not seen due to covid-19 protocol. Results - Laboratory Findings CBC and BMP: 12/25/20 04:26 12/26/20 05:19 Abnormal Lab Findings: Abnormal Labs 12/22/20 12/22/20 12/22/20 18:39 18:39 18:39 WBC 23.4 H RBC 3.10 L Hgb 10.2 L Hct 29.9 L MCV 97 H MCH 33 H RDW 16.7 H Lymph % (Auto) Lymph # (Auto) [place] # (Auto) Seg Neutrophils % Seg Neuts % (Manual) 93.0 H Lymphocytes % (Manual) 4.0 L Seg Neutrophils # Seg Neutrophils # Man 21.8 H Lymphocytes # (Manual) 0.9 L INR 1.15 H APTT 38.8 H D-Dimer ABG pH POC ABG pCO2 POC ABG pO2 ABG Hemoglobin ABG Sodium ABG Chloride Sodium 119 L* Chloride 86.5 L Carbon Dioxide 21 L BUN Creatinine 3.6 H Glucose POC Glucose Lactic Acid Calcium 7.3 L Troponin T 0.035 H Total Protein Albumin LDL Cholesterol Direct 10 L HDL Cholesterol 66 H Arterial Blood Ionized Calcium Urine Creatinine Coronavirus (PCR) 12/22/20 12/22/20 12/23/20 19:36 23:18 00:00 WBC RBC Hgb Hct MCV MCH RDW Lymph % (Auto) Lymph # (Auto) [place] # (Auto) Seg Neutrophils % Seg Neuts % (Manual) Lymphocytes % (Manual) Seg Neutrophils # Seg Neutrophils # Man Lymphocytes # (Manual) INR APTT D-Dimer ABG pH POC ABG pCO2 POC ABG pO2 ABG Hemoglobin ABG Sodium ABG Chloride Sodium Chloride Carbon Dioxide BUN Creatinine Glucose POC Glucose Lactic Acid 3.40 H* 4.70 H* Calcium Troponin T Total Protein Albumin LDL Cholesterol Direct HDL Cholesterol Arterial Blood Ionized Calcium Urine Creatinine 233.3 H Coronavirus (PCR) 12/23/20 12/23/20 12/23/20 00:00 00:23 04:50 WBC 16.5 H RBC 2.61 L Hgb 8.4 L Hct 25.5 L MCV 98 H MCH RDW 16.8 H Lymph % (Auto) Lymph # (Auto) [place] # (Auto) Seg Neutrophils % Seg Neuts % (Manual) 83.0 H Lymphocytes % (Manual) 4.0 L Seg Neutrophils # Seg Neutrophils # Man 13.7 H Lymphocytes # (Manual) 0.7 L INR APTT D-Dimer ABG pH 7.484 H POC ABG pCO2 24.9 L POC ABG pO2 80.9 L ABG Hemoglobin 10.4 L ABG Sodium 123.4 L ABG Chloride 95.0 L Sodium 126 L D Chloride Carbon Dioxide BUN Creatinine Glucose POC Glucose Lactic Acid Calcium Troponin T Total Protein Albumin LDL Cholesterol Direct HDL Cholesterol Arterial Blood Ionized Calcium 3.7 L Urine Creatinine Coronavirus (PCR) 12/23/20 12/23/20 12/23/20 04:50 09:44 12:04 WBC RBC Hgb Hct MCV MCH RDW Lymph % (Auto) Lymph # (Auto) [place] # (Auto) Seg Neutrophils % Seg Neuts % (Manual) Lymphocytes % (Manual) Seg Neutrophils # Seg Neutrophils # Man Lymphocytes # (Manual) INR APTT D-Dimer ABG pH POC ABG pCO2 POC ABG pO2 ABG Hemoglobin ABG Sodium ABG Chloride Sodium 126 L 130 L Chloride 95.6 L Carbon Dioxide 17 L 20 L BUN 26 H 27 H Creatinine 3.1 H 2.5 H Glucose 73 L POC Glucose 61 L Lactic Acid Calcium 6.4 L 6.7 L Troponin T Total Protein 5.9 L Albumin 2.3 L LDL Cholesterol Direct HDL Cholesterol Arterial Blood Ionized Calcium Urine Creatinine Coronavirus (PCR) 12/23/20 12/24/20 12/24/20 21:44 05:34 05:34 WBC 15.3 H RBC 2.34 L Hgb 7.5 L Hct 22.7 L MCV 97 H MCH RDW 16.7 H Lymph % (Auto) 3.8 L Lymph # (Auto) 0.6 L [place] # (Auto) 1.0 H Seg Neutrophils % 88.6 H Seg Neuts % (Manual) Lymphocytes % (Manual) Seg Neutrophils # 13.6 H Seg Neutrophils # Man Lymphocytes # (Manual) INR APTT D-Dimer ABG pH POC ABG pCO2 POC ABG pO2 ABG Hemoglobin ABG Sodium ABG Chloride Sodium 130 L 132 L Chloride Carbon Dioxide 21 L BUN 28 H Creatinine 1.7 H Glucose POC Glucose Lactic Acid Calcium 6.5 L Troponin T Total Protein Albumin LDL Cholesterol Direct HDL Cholesterol Arterial Blood Ionized Calcium Urine Creatinine Coronavirus (PCR) 12/24/20 12/24/20 12/25/20 11:10 16:00 04:26 WBC RBC 2.39 L Hgb 7.9 L Hct 23.3 L MCV 98 H MCH 33 H RDW 17.1 H Lymph % (Auto) Lymph # (Auto) [place] # (Auto) Seg Neutrophils % Seg Neuts % (Manual) 91.0 H Lymphocytes % (Manual) 5.0 L Seg Neutrophils # Seg Neutrophils # Man 9.6 H Lymphocytes # (Manual) 0.5 L INR APTT D-Dimer 1343.49 H ABG pH POC ABG pCO2 POC ABG pO2 ABG Hemoglobin ABG Sodium ABG Chloride Sodium Chloride Carbon Dioxide BUN Creatinine Glucose POC Glucose Lactic Acid Calcium Troponin T Total Protein Albumin LDL Cholesterol Direct HDL Cholesterol Arterial Blood Ionized Calcium Urine Creatinine Coronavirus (PCR) Positive A 12/25/20 12/25/20 12/26/20 04:26 21:54 05:19 WBC RBC Hgb Hct MCV MCH RDW Lymph % (Auto) Lymph # (Auto) [place] # (Auto) Seg Neutrophils % Seg Neuts % (Manual) Lymphocytes % (Manual) Seg Neutrophils # Seg Neutrophils # Man Lymphocytes # (Manual) INR APTT D-Dimer ABG pH POC ABG pCO2 POC ABG pO2 ABG Hemoglobin ABG Sodium ABG Chloride Sodium 131 L 134 L Chloride Carbon Dioxide 18 L BUN 24 H 27 H Creatinine 1.6 H Glucose 135 H 156 H POC Glucose 153 H Lactic Acid Calcium 7.5 L D Troponin T Total Protein Albumin LDL Cholesterol Direct HDL Cholesterol Arterial Blood Ionized Calcium Urine Creatinine Coronavirus (PCR) 12/26/20 12/26/20 08:58 11:44 WBC RBC Hgb Hct MCV MCH RDW Lymph % (Auto) Lymph # (Auto) [place] # (Auto) Seg Neutrophils % Seg Neuts % (Manual) Lymphocytes % (Manual) Seg Neutrophils # Seg Neutrophils # Man Lymphocytes # (Manual) INR APTT D-Dimer ABG pH POC ABG pCO2 POC ABG pO2 ABG Hemoglobin ABG Sodium ABG Chloride Sodium Chloride Carbon Dioxide BUN Creatinine Glucose POC Glucose 120 H 133 H Lactic Acid Calcium Troponin T Total Protein Albumin LDL Cholesterol Direct HDL Cholesterol Arterial Blood Ionized Calcium Urine Creatinine Coronavirus (PCR) Assessment and Plan 50 yo male with htn, dm, chf, ckdx, hypoventilation syndrome w/ obesity, oa, gout, who presented initialy w/ 1 day of lethargy and generalized weakness. Noted initially upon admission with sepsis and hospital course revealed covid-19 infection w/ possible pneumonia. Patient is noted to be altered during the hospital course. 1. Metabolic Encephalopath - in the setting of active infectiion. 2. Seizure - confirm w/ EEG. 3. Acute Ischemic Embolic Stroke - aspirin 325 mg po qday, statin therapy for a goal ldl of 70; mri brain w/ wo contrast when clinically stable; tte, ldl/a1c, tsh, bnp; pt/ot/st/swallow evaluation/monitoring. Moi Whittington MD Neurology
[2020-12-26] MEDS: AZITHROMYCIN/NS 500 MG/250 ML 500 MG/250 ML BAG IV SCH (12:57)
[2020-12-26] MEDS: hydrALAZINE 25 MG TAB PO SCH ×2 (14:02→22:30)
--- NOTE | 2020-12-26 15:48 | Progress Note ---
Assessment and Plan Cultures: SARS CoV2 PCR: positive Blood culture: no growth Urine culture: no growth A/P: 50-year-old male with hypertension, diabetes, CKD, obesity, gout was admitted to the hospital with altered mental status: #SIRS/Sepsis, bilateral pneumonia: secondary to COVID-19. ?bacterial component, procal was elevated #Acute hypoxic respiratory failure: Transient, now resolved. #MARY: Resolved. #Acute encephalopathy: improving. Likely metabolic, sodium was 119 on admission. Recs: -Continue short course of steroids. Since hypoxia has resolved, no role for remdesivir at this time -Complete remainder of empiric antibiotics to complete 5 days, procalcitonin elevated -prophylactic anticoagulation based on d-dimer per hospital protocol -trend ferritin, LDH, d-dimer, CRP every 2-3 days for risk stratification and to assess disease progression Sal Johnson MD, FACP [facility] ([facility] O: [phone] F: [phone] Subjective Date of service: 12/26/20 Interval history: Afebrile. Remains on room air. Objective - Exam Narrative Exam: Physical Exam (reviewed in chart to minimize risk of transmission) Constitutional: deferred Head, Ears, Nose: deferred Eyes: deferred Neck: deferred Oral: deferred Cardiovascular: deferred Respiratory: deferred GI: deferred Musculoskeletal: deferred Skin: deferred Hem/Lymphatic: deferred Psych: deferred Neurological: deferred - Constitutional Vitals: Vital Signs Temp Pulse Resp BP Pulse Ox 98.9 F 97 H 20 169/94 100 12/26/20 12:00 12/26/20 14:51 12/26/20 14:51 12/26/20 12:40 12/26/20 12:40 Temperature -Last 24 Hours Temperature 98.9 F Temperature 97.9 F Temperature 98.4 F Temperature 97.3 F Temperature 97.6 F Temperature 98.4 F - Labs CBC & Chem 7: 12/25/20 04:26 12/26/20 05:19 Labs: Abnormal lab results 12/25/20 12/26/20 12/26/20 Range/Units 21:54 05:19 08:58 Sodium 134 L (137-145) mmol/L BUN 27 H (9-20) mg/dL Creatinine 1.6 H (0.8-1.3) mg/dL Glucose 156 H (75-100) mg/dL POC Glucose 153 H 120 H (70-105) mg/dL 12/26/20 Range/Units 11:44 Sodium (137-145) mmol/L BUN (9-20) mg/dL Creatinine (0.8-1.3) mg/dL Glucose (75-100) mg/dL POC Glucose 133 H (70-105) mg/dL
[2020-12-26] MEDS ORDERED: ALBUTEROL 8.5 GM MDI INHALATION IH PRN (20:37)
[2020-12-27] MEDS: IPRATROPIUM/ALBUTEROL SULFATE 3 ML AMPUL.NEB IH SCH (02:52)
[2020-12-27] MEDS: hydrALAZINE 25 MG TAB PO SCH ×3 (06:26→21:38)
[2020-12-27 06:38] LABS: Calcium 8.1 mg/dL (8.4-10.2)
[2020-12-27] MEDS ORDERED: ALBUTEROL 2.5 MG/3 ML NEBU IH PRN (06:45)
--- NOTE | 2020-12-27 07:28 | Progress Note ---
Assessment and Plan Assessment and plan: -- Sepsis Likely due to pneumonia with COVID-19, Initiated Sepsis protocol: CBC, CMP, IV antibiotic therapy, blood culture, IV fluid resuscitation therapy, monitor urine output every shift, maintain mean arterial pressure greater than or equal to 65, monitor fluid balance, serial lactic acid level. --COVID-19 pneumonia -Continue isolation, patient started on dexamethasone 6 mg p.o. daily -Patient tested positive for COVID-19 virus 12/24 - CXR: Cardiomegaly with opacity in the right lung base, which may reflect pulmonary edema in the setting of CHF or may reflect atypical infectious or inflammatory pneumonitis. -Continue Zithromax and Rocephin as procalcitonin level is high -Placed on dexamethasone for total 10 days -No need for remdesivir as patient currently on room air -Infectious disease consulted, appreciate recommendations -Droplet/contact isolation -Continue SPO2 monitoring -Supplemental oxygen as needed -Pulmonary hygiene -Prone to sleep -Vitamin C, vitamin D, zinc -Anticoagulation per protocol -Lasix IV as needed to prevent pulmonary edema --Acute hypoxic respiratory failure, POA Likely from PNA, now resolved Required Bipap on admission, then supplemental O2 -- Toxic metabolic encephalopathy Likely due to sepsis and dehydration CT Head without any acute process, Continue neuro check, seizure precautions, aspiration precautions, treat sepsis -- MARY with vasomotor nephropathy, resolved Likely due to sepsis and underlying dehydration Nephrology team consulted, IV fluid resuscitation therapy, monitor urine output every shift, --Hypertension, resume home meds and adjust BP meds as needed --Diabetes mellitus type 2, continue consistent carb diet and SSI -- Hyponatremia syndrome Likely due to dehydration IV fluid resuscitation therapy, nephrology team consulted, repeat serum sodium --Metabolic acidosis Likely due to sepsis and dehydration IV fluid resuscitation therapy, IV bicarbonate therapy as needed, supportive care. --Elevated troponin, likely NSTEMI type II in light of elevated creatinine 2D echo ordered pending, patient denies any chest pain --Macrocytic anemia, ordered vitamin B12 and folic acid level Monitor H&H, no sign of active bleeding -- DVT prophylaxis SCD to bilateral lower extremities while in bed Brief History: The patient is a 50 YO male with history significant for Obesity, HTN, DM type 2, CKD, OA, Gout and CHF with unknown EF who presented to [facility] ED 12/22 for evaluation of AMS. Per family patient has experienced increased weakness and confusion of 1 day duration. Patient was transported thru EMS and suspected for CVA. A code stroke was called. The patient was found to have sepsis with possible pneumonia, toxic metabolic encephalopathy, acute kidney injury, hyponatremia, and metabolic acidosis. Patient initiated on sepsis protocol and admitted to [facility]. Labs on admission was significant for Creat 3.6, BUN 19, Sodium 119, bicarb 21 and wbc 23.4. Daily course: 12/23: Ordered for Covid test, continue Rocephin and Zithromax for now mental status significantly improved we will hold acyclovir for now. Will place on gentle hydration, will follow 2D echo. Continue to monitor CBC and BMP. off BiPAP 12/24: COVID-19 test result pending, 2D echo pending. Renal function improved. Sodium level also improving. Continue gentle hydration, continue IV antibiotics. Follow clinically. Patient on 4 L nasal cannula -wean off as tolerated. 12/25: Patient on room air today. Transfer to [facility]. Assess for home O2 requirement. Continue empiric antibiotic for total 5 days. Sodium and creatinine significantly improved today. If clinically stable possible DC tomor row. 12/26: Will obtain Neurology eval, transfer to COVID unit. Renew restriants. Mental status does not appear to be at baseline yet. Patient with debility will also need PT considering lethargy and fall. 12/27/2020; neurology evaluated the patient, and recommend recommend EEG. He also recommend MRI to be done once the patient is stable. Patient evaluated by ID and recommend to continue with short-term steroids, no need for remdesivir. Nephrology is following the patient, creatinine increased overnight. PT evaluated and recommend home health PT. History Interval history: Patient was seen and evaluated this morning Patient was alert and oriented Hospitalist Physical - Physical exam Narrative exam: Not in cardiopulmonary distress. The patient is obese. Vital signs as documented. Head exam is unremarkable. No scleral icterus . Neck is without jugular venous distension, thyromegaly, or carotid bruits. Lungs are clear to auscultation. Cardiac exam reveals regular rate and Rhythm. Abdominal exam reveals normal bowel sounds, nontender, no organomegaly. Extremities are nonedematous and both femoral and pedal pulses are normal. MEDIA INTERN: Patient is confused, on restraints - Constitutional Vitals: Temp Pulse Resp BP Pulse Ox 98.0 F 95 H 20 146/89 98 12/27/20 04:54 12/27/20 04:54 12/27/20 04:54 12/27/20 04:54 12/27/20 06:44 General appearance: Present: mild distress HEART Score - HEART Score Troponin: Troponin T < 0.010 ng/mL (0.00-0.029) 12/25/20 14:54 Results - Labs CBC & Chem 7: 12/25/20 04:26 12/27/20 04:56 Labs: Laboratory Last Values WBC 10.5 K/mm3 (4.5-11.0) 12/25/20 04:26 RBC 2.39 M/mm3 (3.65-5.03) L 12/25/20 04:26 Hgb 7.9 gm/dl (11.8-15.2) L 12/25/20 04:26 Hct 23.3 % (35.5-45.6) L 12/25/20 04:26 MCV 98 fl (84-94) H 12/25/20 04:26 MCH 33 pg (28-32) H 12/25/20 04:26 MCHC 34 % (32-34) 12/25/20 04:26 RDW 17.1 % (13.2-15.2) H 12/25/20 04:26 Plt Count 211 K/mm3 (140-440) 12/25/20 04:26 Lymph % (Auto) 3.8 % (13.4-35.0) L 12/24/20 05:34 [place] % (Auto) 6.6 % (0.0-7.3) 12/24/20 05:34 Eos % (Auto) 0.5 % (0.0-4.3) 12/24/20 05:34 Baso % (Auto) 0.5 % (0.0-1.8) 12/24/20 05:34 Lymph # (Auto) 0.6 K/mm3 (1.2-5.4) L 12/24/20 05:34 [place] # (Auto) 1.0 K/mm3 (0.0-0.8) H 12/24/20 05:34 Eos # (Auto) 0.1 K/mm3 (0.0-0.4) 12/24/20 05:34 Baso # (Auto) 0.1 K/mm3 (0.0-0.1) 12/24/20 05:34 Add Manual Diff Complete 12/25/20 04:26 Total Counted 100 12/25/20 04:26 Seg Neutrophils % Supervisor Curing Room 12/25/20 04:26 Seg Neuts % (Manual) 91.0 % (40.0-70.0) H 12/25/20 04:26 Band Neutrophils % 8.0 % 12/23/20 04:50 Lymphocytes % (Manual) 5.0 % (13.4-35.0) L 12/25/20 04:26 Monocytes % (Manual) 4.0 % (0.0-7.3) 12/25/20 04:26 Nucleated RBC % Not Reportable 12/25/20 04:26 Seg Neutrophils # 13.6 K/mm3 (1.8-7.7) H 12/24/20 05:34 Seg Neutrophils # Man 9.6 K/mm3 (1.8-7.7) H 12/25/20 04:26 Band Neutrophils # 0.0 K/mm3 12/25/20 04:26 Lymphocytes # (Manual) 0.5 K/mm3 (1.2-5.4) L 12/25/20 04:26 Abs React Lymphs (Man) 0.0 K/mm3 12/25/20 04:26 Monocytes # (Manual) 0.4 K/mm3 (0.0-0.8) 12/25/20 04:26 Eosinophils # (Manual) 0.0 K/mm3 (0.0-0.4) 12/25/20 04:26 Basophils # (Manual) 0.0 K/mm3 (0.0-0.1) 12/25/20 04:26 Metamyelocytes # 0.0 K/mm3 12/25/20 04:26 Myelocytes # 0.0 K/mm3 12/25/20 04:26 Promyelocytes # 0.0 K/mm3 12/25/20 04:26 Blast Cells # 0.0 K/mm3 12/25/20 04:26 WBC Morphology Not Reportable 12/25/20 04:26 Hypersegmented Neuts Not Reportable 12/25/20 04:26 Hyposegmented Neuts Not Reportable 12/25/20 04:26 Hypogranular Neuts Not Reportable 12/25/20 04:26 Smudge Cells Not Reportable 12/25/20 04:26 Toxic Granulation Not Reportable 12/25/20 04:26 Toxic Vacuolation Not Reportable 12/25/20 04:26 Dohle Bodies Not Reportable 12/25/20 04:26 Pelger-Huet Anomaly Not Reportable 12/25/20 04:26 Norm Rods Not Reportable 12/25/20 04:26 Platelet Estimate Consistent w auto 12/25/20 04:26 Clumped Platelets Not Reportable 12/25/20 04:26 Plt Clumps, EDTA Not Reportable 12/25/20 04:26 Large Platelets Not Reportable 12/25/20 04:26 Giant Platelets Not Reportable 12/25/20 04:26 Platelet Satelliting Not Reportable 12/25/20 04:26 Plt Morphology Comment Not Reportable 12/25/20 04:26 RBC Morphology Not Reportable 12/25/20 04:26 Dimorphic RBCs Not Reportable 12/25/20 04:26 Polychromasia Not Reportable 12/25/20 04:26 Hypochromasia 1+ 12/25/20 04:26 Poikilocytosis Not Reportable 12/25/20 04:26 Anisocytosis Few 12/25/20 04:26 Microcytosis Not Reportable 12/25/20 04:26 Macrocytosis Few 12/25/20 04:26 Spherocytes Few 12/25/20 04:26 Pappenheimer Bodies Not Reportable 12/25/20 04:26 Sickle Cells Not Reportable 12/25/20 04:26 Target Cells Few 12/25/20 04:26 Tear Drop Cells Not Reportable 12/25/20 04:26 Ovalocytes Not Reportable 12/25/20 04:26 Helmet Cells Not Reportable 12/25/20 04:26 [place] Bodies Not Reportable 12/25/20 04:26 [place] Rings Not Reportable 12/25/20 04:26 [place] Cells Not Reportable 12/25/20 04:26 Bite Cells Not Reportable 12/25/20 04:26 Crenated Cell Not Reportable 12/25/20 04:26 Elliptocytes Not Reportable 12/25/20 04:26 Acanthocytes (Spur) Not Reportable 12/25/20 04:26 Rouleaux Not Reportable 12/25/20 04:26 Hemoglobin C Crystals Not Reportable 12/25/20 04:26 Schistocytes Few 12/25/20 04:26 Malaria parasites Not Reportable 12/25/20 04:26 Alexei Bodies Not Reportable 12/25/20 04:26 Hem Pathologist Commnt No 12/25/20 04:26 PT 14.7 Sec. (12.2-14.9) 12/22/20 18:39 INR 1.15 (0.87-1.13) H 12/22/20 18:39 APTT 38.8 Sec. (24.2-36.6) H 12/22/20 18:39 Thrombin Time 16.8 Sec. (15.1-19.6) 12/22/20 18:39 D-Dimer 1343.49 ng/mlDDU (0-234) H 12/24/20 16:00 ABG pH 7.484 (7.320-7.450) H 12/23/20 00:23 POC ABG pCO2 24.9 mmHg (32.0-48.0) L 12/23/20 00:23 POC ABG pO2 80.9 mmHg (83-108) L 12/23/20 00:23 POC ABG HCO3 18.3 12/23/20 00:23 POC ABG Base Excess -3.9 12/23/20 00:23 ABG Hemoglobin 10.4 (12.0-17.5) L 12/23/20 00:23 ABG Sodium 123.4 mmol/L (136.0-145.0) L 12/23/20 00:23 ABG Potassium 4.2 mmol/L (3.40-4.50) 12/23/20 00:23 ABG Chloride 95.0 mmol/L (98-107) L 12/23/20 00:23 ABG Glucose 77 mg/dL (65-95) 12/23/20 00:23 FiO2 28 12/23/20 00:23 Sodium 135 mmol/L (137-145) L 12/27/20 04:56 Potassium 3.6 mmol/L (3.6-5.0) 12/27/20 04:56 Chloride 100.5 mmol/L (98-107) 12/27/20 04:56 Carbon Dioxide 20 mmol/L (22-30) L 12/27/20 04:56 Anion Gap 18 mmol/L 12/27/20 04:56 BUN 37 mg/dL (9-20) H 12/27/20 04:56 Creatinine 1.9 mg/dL (0.8-1.3) H 12/27/20 04:56 Estimated GFR 46 ml/min 12/27/20 04:56 BUN/Creatinine Ratio 19 % 12/27/20 04:56 Glucose 131 mg/dL (75-100) H 12/27/20 04:56 POC Glucose 135 mg/dL (70-105) H 12/26/20 22:12 Lactic Acid 1.30 mmol/L (0.7-2.0) 12/23/20 04:50 Calcium 8.1 mg/dL (8.4-10.2) L 12/27/20 04:56 Total Bilirubin 0.20 mg/dL (0.1-1.2) 12/23/20 04:50 AST 32 units/L (5-40) 12/23/20 04:50 ALT 10 units/L (7-56) 12/23/20 04:50 Alkaline Phosphatase 49 units/L (35-129) 12/23/20 04:50 Troponin T < 0.010 ng/mL (0.00-0.029) 12/25/20 14:54 Total Protein 5.9 g/dL (6.3-8.2) L 12/23/20 04:50 Albumin 2.3 g/dL (3.9-5) L 12/23/20 04:50 Albumin/Globulin Ratio 0.6 % 12/23/20 04:50 Triglycerides 121 mg/dL (2-149) 12/22/20 18:39 Cholesterol 92 mg/dL (50-199) 12/22/20 18:39 LDL Cholesterol Direct 10 mg/dL (50-130) L 12/22/20 18:39 HDL Cholesterol 66 mg/dL (40-59) H 12/22/20 18:39 Cholesterol/HDL Ratio 1.39 % 12/22/20 18:39 Vitamin B12 448.2 pg/mL (211-911) 12/25/20 14:59 Procalcitonin 33.83 ng/mL (<0.15) 12/24/20 18:00 Arterial Blood Glucose 77 mg/dL (65-95) 12/23/20 00:23 Arterial Blood Ionized Calcium 3.7 mg/dL (4.6-5.3) L 12/23/20 00:23 Urine Color [place]u (Yellow) 12/22/20 23:18 Urine Turbidity Slightly-cloudy (Clear) 12/22/20 23:18 Urine pH 5.0 (5.0-7.0) 12/22/20 23:18 Ur Specific [place] 1.015 (1.003-1.030) 12/22/20 23:18 Urine Protein 100 mg/dl mg/dL (Negative) 12/22/20 23:18 Urine Glucose (UA) Neg mg/dL (Negative) 12/22/20 23:18 Urine Ketones Neg mg/dL (Negative) 12/22/20 23:18 Urine Blood Sm (Negative) 12/22/20 23:18 Urine Nitrite Neg (Negative) 12/22/20 23:18 Urine Bilirubin Neg (Negative) 12/22/20 23:18 Urine Urobilinogen 4.0 mg/dL (<2.0) 12/22/20 23:18 Ur Leukocyte Esterase Neg (Negative) 12/22/20 23:18 Urine WBC (Auto) 2.0 /HPF (0.0-6.0) 12/22/20 23:18 Urine RBC (Auto) 6.0 /HPF (0.0-6.0) 12/22/20 23:18 U Epithel Cells (Auto) 1.0 /HPF (0-13.0) 12/22/20 23:18 Hyaline Casts 8 /LPF 12/22/20 23:18 Urine Mucus Few /HPF 12/22/20 23:18 Urine Yeast (Budding) 1+ /HPF 12/22/20 23:18 Urine Creatinine 233.3 mg/dL (0.1-20.0) H 12/22/20 23:18 Urine Sodium 32 mmol/L 12/22/20 23:18 Coronavirus (PCR) Positive (Negative) A 12/24/20 11:10 Blood Type O POSITIVE 12/22/20 19:38 Antibody Screen Negative 12/22/20 19:38 Microbiology: Microbiology 12/22/20 19:38 Peripheral/Venous Blood Culture - Preliminary NO GROWTH AFTER 4 DAYS 12/22/20 19:38 Peripheral/Venous Blood Culture - Preliminary NO GROWTH AFTER 4 DAYS [place]/IV: Voiding Method Urinal Active Medications - Current Medications Current Medications: Generic Name Dose Route Start Last Admin Trade Name Freq PRN Reason Stop Dose Admin Acetaminophen 650 mg 12/22/20 19:29 12/23/20 19:52 Acetaminophen 325 Mg Tab PO 650 mg Q4H PRN Administration Pain MILD(1-3)/Fever >100.5/HARP Albuterol 2 puff 12/26/20 20:37 Albuterol 8.5 Gm Mdi Inhalation IH Q4HRT PRN Shortness Of Breath Albuterol 2.5 mg 12/27/20 06:45 Albuterol 2.5 Mg/3 Ml Nebu IH Q4HRT PRN Shortness Of Breath Allopurinol 100 mg 12/24/20 10:00 12/26/20 11:04 Allopurinol 100 Mg Tab PO 100 mg QDAY AGUS Administration Apixaban 2.5 mg 12/25/20 11:00 12/26/20 22:32 Apixaban 2.5 Mg Tab PO 2.5 mg Q12HR AGUS Administration Protocol Ascorbic Acid 1,000 mg 12/24/20 22:00 12/26/20 22:32 Ascorbic Acid 500 Mg Tab PO 1,000 mg BID AGUS Administration Aspirin 81 mg 12/24/20 10:00 12/26/20 11:06 Aspirin 81 Mg Tab Chew PO 81 mg DAILY AGUS Administration Carvedilol 6.25 mg 12/23/20 22:00 12/26/20 22:31 Carvedilol 6.25 Mg Tab PO 6.25 mg BID AGUS Administration Cholecalciferol 5,000 unit 12/25/20 10:00 12/26/20 11:04 Cholecalciferol (Vit D3) 5,000 Unit Tab PO 5,000 unit DAILY AGUS Administration Dexamethasone 6 mg 12/24/20 18:00 12/25/20 21:57 Dexamethasone 2 Mg Tab PO 01/02/21 18:01 6 mg Q24H AGUS Administration Dextrose 50 ml 12/23/20 11:11 Dextrose 50% In Water (25gm) 50 Ml Syringe IV Q30MIN PRN Hypoglycemia Protocol Folic Acid 1 mg 12/24/20 10:00 12/26/20 11:05 Folic Acid 1 Mg Tab PO 1 mg QDAY AGUS Administration Hydralazine HCl 50 mg 12/26/20 06:17 12/27/20 06:26 Hydralazine 25 Mg Tab PO 50 mg Q8HR AGUS Administration Hydromorphone HCl 0.25 mg 12/22/20 19:29 12/24/20 03:40 Hydromorphone 1 Mg/1 Ml Inj IV 0.25 mg Q4H PRN Administration Pain, Moderate (4-6) Azithromycin 500 mg in 250 mls @ 250 mls/hr 12/23/20 12:00 12/26/20 12:57 Zithromax/Ns IV 12/27/20 12:59 250 mls/hr Q24H AGUS Administration Ceftriaxone Sodium 2 gm in 100 mls @ 200 mls/hr 12/24/20 08:00 12/26/20 11:07 Rocephin/Ns 2 Gm/100 Ml IV 12/28/20 08:29 200 mls/hr Q24H AGUS Administration Protocol Insulin Human Regular 0 units 12/25/20 16:30 12/26/20 22:32 Insulin Regular, Human 100 Units/1 Ml SUB-Q Not Given ACHS [facility] Protocol Isosorbide Dinitrate 20 mg 12/23/20 20:00 12/26/20 22:31 Isosorbide Dinitrate 20 Mg Tab PO 20 mg TID AGUS Administration Ondansetron HCl 4 mg 12/22/20 19:29 12/23/20 16:45 Ondansetron 4 Mg/2 Ml Inj IV 4 mg Q8H PRN Administration Nausea And Vomiting Sodium Bicarbonate 650 mg 12/25/20 20:00 12/26/20 22:31 Sodium Bicarbonate 650 Mg Tab PO 650 mg TID AGUS Administration Sodium Chloride 10 ml 12/22/20 22:00 12/26/20 22:33 Sodium Chloride 0.9% 10 Ml Flush Syringe IV 10 ml BID AGUS Administration Sodium Chloride 10 ml 12/22/20 19:29 Sodium Chloride 0.9% 10 Ml Flush Syringe IV PRN PRN LINE FLUSH Zinc Sulfate 220 mg 12/24/20 22:00 12/26/20 22:32 Zinc Sulfate 220 Mg Cap PO 220 mg BID AGUS Administration
[2020-12-27] MEDS: DEXAMETHASONE 2 MG TAB PO SCH ×2 (09:34→17:04)
[2020-12-27] MEDS: INSULIN REGULAR, HUMAN 100 UNITS/1 ML SUB-Q SCH ×5 (09:34→22:55)
[2020-12-27] MEDS: ASPIRIN 81 MG TAB CHEW PO SCH (09:44)
[2020-12-27] MEDS: ASCORBIC ACID 500 MG TAB PO SCH ×2 (09:44→21:38)
[2020-12-27] MEDS: allopurinoL 100 MG TAB PO SCH (09:44)
[2020-12-27] MEDS: ZINC SULFATE 220 MG CAP PO SCH ×2 (09:44→21:38)
[2020-12-27] MEDS: APIXABAN 2.5 MG TAB PO SCH ×2 (09:44→21:39)
[2020-12-27] MEDS: FOLIC ACID 1 MG TAB PO SCH (09:44)
[2020-12-27] MEDS: CHOLECALCIFEROL (VIT D3) 5,000 UNIT TAB PO SCH (09:44)
[2020-12-27] MEDS: carvediloL 6.25 MG TAB PO SCH ×2 (09:44→21:38)
[2020-12-27] MEDS: SODIUM BICARBONATE 650 MG TAB PO SCH ×3 (09:45→20:05)
[2020-12-27] MEDS: ISOSORBIDE DINITRATE 20 MG TAB PO SCH ×3 (12:16→20:05)
[2020-12-27] MEDS: cefTRIAXone/NS 2 GM/100 ML 2 GM/100 ML BAG IV SCH (12:54)
[2020-12-27] MEDS: AZITHROMYCIN/NS 500 MG/250 ML 500 MG/250 ML BAG IV SCH (12:54)
--- NOTE | 2020-12-27 13:58 | Progress Note ---
Assessment and Plan Cultures: SARS CoV2 PCR: positive Blood culture: no growth Urine culture: no growth A/P: 50-year-old male with hypertension, diabetes, CKD, obesity, gout was admitted to the hospital with altered mental status: #SIRS/Sepsis, bilateral pneumonia: secondary to COVID-19. ?bacterial component, procal was elevated #Acute hypoxic respiratory failure: Transient, now resolved. #MARY: Resolved. #Acute encephalopathy: improving. Likely metabolic, sodium was 119 on admission. Recs: -Continue short course of steroids. Since hypoxia has resolved, no role for remdesivir at this time -Complete remainder of empiric antibiotics to complete 5 days, procalcitonin elevated. If discharging prior to completion of IV antibiotics, can discharge with cefdinir 300 mg every 12 hours to complete course. -prophylactic anticoagulation based on d-dimer per hospital protocol -trend ferritin, LDH, d-dimer, CRP every 2-3 days for risk stratification and to assess disease progression Joe Cook MD [facility] ([facility] O: [phone] F: [phone] Subjective Date of service: 12/27/20 Interval history: No acute changes or concerns, remains on room air. Objective - Exam Narrative Exam: Physical exam deferred due to PPE conservation strategy. Please refer to primary team's note. - Constitutional Vitals: Vital Signs Temp Pulse Resp BP Pulse Ox 97.8 F 76 8 L 133/77 97 12/27/20 11:24 12/27/20 11:24 12/27/20 11:24 12/27/20 11:24 12/27/20 11:24 Temperature -Last 24 Hours Temperature 97.8 F Temperature 98.0 F Temperature 98.2 F Temperature 98 F Temperature 98.0 F Temperature 98.5 F - Labs CBC & Chem 7: 12/25/20 04:26 12/27/20 04:56 Labs: Abnormal lab results 12/26/20 12/26/20 12/27/20 Range/Units 15:58 22:12 04:56 Sodium 135 L (137-145) mmol/L Carbon Dioxide 20 L (22-30) mmol/L BUN 37 H (9-20) mg/dL Creatinine 1.9 H (0.8-1.3) mg/dL Glucose 131 H (75-100) mg/dL POC Glucose 120 H 135 H (70-105) mg/dL Calcium 8.1 L (8.4-10.2) mg/dL 12/27/20 12/27/20 Range/Units 07:34 11:22 Sodium (137-145) mmol/L Carbon Dioxide (22-30) mmol/L BUN (9-20) mg/dL Creatinine (0.8-1.3) mg/dL Glucose (75-100) mg/dL POC Glucose 116 H 121 H (70-105) mg/dL Calcium (8.4-10.2) mg/dL
--- NOTE | 2020-12-27 14:55 | Progress Note ---
Assessment and Plan 1. Acute kidney injury: Vasomotor MARY superimposed on CKD. Low FeNa. Renal US ordered, pending. Monitor renal function. Creatinine level is increasing now. Encouraged PO fluids. Avoid nephrotoxic agents. Meds dosage based on GFR. 2. FEN: Metabolic acidosis, on Sod bicarb, monitor. Hyponatremia, Sod bicarb, monitor. Monitor lytes. 3. Acute respiratory failure: CXR showed right lung base opacity. Patient positive for COVID-19 test. Was on BIPAP. Decadron. 4. Sepsis: 2/2 PNA. Continue Abx and follow culture results. 5. 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 6. Toxic metabolic encephalopathy: Improved. 7. Anemia, POA: Monitor. 8. DM type 2: Monitor blood glucose. 9. Hypertension: Monitor. Subjective: Patient was seen and examined at the bedside. Doing ok. Examination: General appearance: well-developed, appears stated age, obese, on RA HEENT: ATNC, Pupils equal Neck: Trachea midline Respiratory: ctab Cardiology: regular, S1S2, no murmur Gastrointestinal: normoactive bowel sounds, no tenderness, not distended, obese Integumentary: warm and dry, scattered eczema, LE chronic changes Neurologic: alert, conversing, able to move extremities Ext: trace LE edema Subjective Date of service: 12/27/20 Objective - Vital Signs Vital signs: Vital Signs - 12hr 12/27/20 12/27/20 12/27/20 04:22 04:54 06:44 Temperature 98.2 F 98.0 F Pulse Rate Pulse Rate [ 95 H Left] Respiratory 20 20 Rate Blood Pressure 146/89 146/89 O2 Sat by Pulse 99 98 Oximetry 12/27/20 11:24 Temperature 97.8 F Pulse Rate 76 Pulse Rate [ Left] Respiratory 8 L Rate Blood Pressure 133/77 O2 Sat by Pulse 97 Oximetry - Lab 12/25/20 04:26 12/27/20 04:56 Most recent lab results ABG pH 7.484 (7.320-7.450) H 12/23/20 00:23 Calcium 8.1 mg/dL (8.4-10.2) L 12/27/20 04:56 Urine Creatinine 233.3 mg/dL (0.1-20.0) H 12/22/20 23:18 Urine Sodium 32 mmol/L 12/22/20 23:18 Medications & Allergies - Medications Allergies/Adverse Reactions: Allergies No Known Allergies Allergy (Unverified 01/19/20 19:36) Home Medications: Home Medications Medication Instructions Recorded Confirmed Last Taken Type Aspirin [Aspirin BABY CHEW TAB] 81 mg PO DAILY 12/23/20 12/23/20 Unknown History Folic Acid [Folvite] 1 mg PO QDAY 12/23/20 12/23/20 Unknown History Insulin Glargine [Lantus VIAL] 25 unit SUB-Q QHS 12/23/20 12/23/20 Unknown History Isosorbide Dinitrate [Isordil] 20 mg PO TID 12/23/20 12/23/20 Unknown History Lispro Insulin [HumaLOG] 5 unit SQ TID 12/23/20 12/23/20 Unknown History Torsemide [Demadex] 100 mg PO QDAY 12/23/20 12/23/20 Unknown History allopurinoL [Zyloprim] 100 mg PO QDAY 12/23/20 12/23/20 Unknown History carvediloL [Coreg] 6.25 mg PO BID 12/23/20 12/23/20 Unknown History hydrALAZINE [Apresoline] 25 mg PO Q8HR 12/23/20 12/23/20 Unknown History metFORMIN [Glucophage] 500 mg PO BID 12/23/20 12/23/20 Unknown History Active Medications: Generic Name Dose Route Start Last Admin Trade Name Freq PRN Reason Stop Dose Admin Acetaminophen 650 mg 12/22/20 19:29 12/23/20 19:52 Acetaminophen 325 Mg Tab PO 650 mg Q4H PRN Administration Pain MILD(1-3)/Fever >100.5/HARP Albuterol 2 puff 12/26/20 20:37 Albuterol 8.5 Gm Mdi Inhalation IH Q4HRT PRN Shortness Of Breath Allopurinol 100 mg 12/24/20 10:00 12/27/20 09:44 Allopurinol 100 Mg Tab PO 100 mg QDAY AGUS Administration Apixaban 2.5 mg 12/25/20 11:00 12/27/20 09:44 Apixaban 2.5 Mg Tab PO 2.5 mg Q12HR AGUS Administration Protocol Ascorbic Acid 1,000 mg 12/24/20 22:00 12/27/20 09:44 Ascorbic Acid 500 Mg Tab PO 1,000 mg BID AGUS Administration Aspirin 81 mg 12/24/20 10:00 12/27/20 09:44 Aspirin 81 Mg Tab Chew PO 81 mg DAILY AGUS Administration Carvedilol 6.25 mg 12/23/20 22:00 12/27/20 09:44 Carvedilol 6.25 Mg Tab PO 6.25 mg BID AGUS Administration Cholecalciferol 5,000 unit 12/25/20 10:00 12/27/20 09:44 Cholecalciferol (Vit D3) 5,000 Unit Tab PO 5,000 unit DAILY AGUS Administration Dexamethasone 6 mg 12/24/20 18:00 12/27/20 09:34 Dexamethasone 2 Mg Tab PO 01/02/21 18:01 Not Given Q24H [facility] Dextrose 50 ml 12/23/20 11:11 Dextrose 50% In Water (25gm) 50 Ml Syringe IV Q30MIN PRN Hypoglycemia Protocol Folic Acid 1 mg 12/24/20 10:00 12/27/20 09:44 Folic Acid 1 Mg Tab PO 1 mg QDAY [facility] Administration Hydralazine HCl 50 mg 12/26/20 06:17 12/27/20 13:29 Hydralazine 25 Mg Tab PO 50 mg Q8HR AGUS Administration Hydromorphone HCl 0.25 mg 12/22/20 19:29 12/24/20 03:40 Hydromorphone 1 Mg/1 Ml Inj IV 0.25 mg Q4H PRN Administration Pain, Moderate (4-6) Ceftriaxone Sodium 2 gm in 100 mls @ 200 mls/hr 12/24/20 08:00 12/27/20 12:54 Rocephin/Ns 2 Gm/100 Ml IV 12/28/20 08:29 200 mls/hr Q24H AGUS Administration Protocol Insulin Human Regular 0 units 12/25/20 16:30 12/27/20 12:17 Insulin Regular, Human 100 Units/1 Ml SUB-Q Not Given ACHS [facility] Protocol Isosorbide Dinitrate 20 mg 12/23/20 20:00 12/27/20 13:32 Isosorbide Dinitrate 20 Mg Tab PO 20 mg TID AGUS Administration Ondansetron HCl 4 mg 12/22/20 19:29 12/23/20 16:45 Ondansetron 4 Mg/2 Ml Inj IV 4 mg Q8H PRN Administration Nausea And Vomiting Sodium Bicarbonate 650 mg 12/25/20 20:00 12/27/20 13:32 Sodium Bicarbonate 650 Mg Tab PO 650 mg TID AGUS Administration Sodium Chloride 10 ml 12/22/20 22:00 12/27/20 09:44 Sodium Chloride 0.9% 10 Ml Flush Syringe IV 10 ml BID AGUS Administration Sodium Chloride 10 ml 12/22/20 19:29 Sodium Chloride 0.9% 10 Ml Flush Syringe IV PRN PRN LINE FLUSH Zinc Sulfate 220 mg 12/24/20 22:00 12/27/20 09:44 Zinc Sulfate 220 Mg Cap PO 220 mg BID AGUS Administration
[2020-12-28] MEDS: hydrALAZINE 25 MG TAB PO SCH ×3 (05:12→22:20)
[2020-12-28 06:34] LABS: BUN/Creatinine Ratio 21; Blood Urea Nitrogen 31 mg/dL (9-20); Calcium 7.9 mg/dL (8.4-10.2); Hemolysis Index 2
--- NOTE | 2020-12-28 08:31 | Progress Note ---
Assessment and Plan Assessment and plan: -- Sepsis Likely due to pneumonia with COVID-19, Initiated Sepsis protocol: CBC, CMP, IV antibiotic therapy, blood culture, IV fluid resuscitation therapy, monitor urine output every shift, maintain mean arterial pressure greater than or equal to 65, monitor fluid balance, serial lactic acid level. --COVID-19 pneumonia -Continue isolation, patient started on dexamethasone 6 mg p.o. daily -Patient tested positive for COVID-19 virus 12/24 - CXR: Cardiomegaly with opacity in the right lung base, which may reflect pulmonary edema in the setting of CHF or may reflect atypical infectious or inflammatory pneumonitis. -Continue Zithromax and Rocephin as procalcitonin level is high -Placed on dexamethasone for total 10 days -No need for remdesivir as patient currently on room air -Infectious disease consulted, appreciate recommendations -Droplet/contact isolation -Continue SPO2 monitoring -Supplemental oxygen as needed -Pulmonary hygiene -Prone to sleep -Vitamin C, vitamin D, zinc -Anticoagulation per protocol -Lasix IV as needed to prevent pulmonary edema --Acute hypoxic respiratory failure, POA Likely from PNA, now resolved Required Bipap on admission, then supplemental O2 -- Toxic metabolic encephalopathy Likely due to sepsis and dehydration CT Head without any acute process, Continue neuro check, seizure precautions, aspiration precautions, treat sepsis -- MARY with vasomotor nephropathy, resolved Likely due to sepsis and underlying dehydration Nephrology team consulted, IV fluid resuscitation therapy, monitor urine output every shift, --Hypertension, resume home meds and adjust BP meds as needed --Diabetes mellitus type 2, continue consistent carb diet and SSI -- Hyponatremia syndrome Likely due to dehydration IV fluid resuscitation therapy, nephrology team consulted, repeat serum sodium --Metabolic acidosis Likely due to sepsis and dehydration IV fluid resuscitation therapy, IV bicarbonate therapy as needed, supportive care. --Elevated troponin, likely NSTEMI type II in light of elevated creatinine 2D echo ordered pending, patient denies any chest pain --Macrocytic anemia, ordered vitamin B12 and folic acid level Monitor H&H, no sign of active bleeding -- DVT prophylaxis SCD to bilateral lower extremities while in bed Brief History: The patient is a 50 YO male with history significant for Obesity, HTN, DM type 2, CKD, OA, Gout and CHF with unknown EF who presented to [facility] 12/22 for evaluation of AMS. Per family patient has experienced increased weakness and confusion of 1 day duration. Patient was transported thru EMS and suspected for CVA. A code stroke was called. The patient was found to have sepsis with possible pneumonia, toxic metabolic encephalopathy, acute kidney injury, hyponatremia, and metabolic acidosis. Patient initiated on sepsis protocol and admitted to [facility]. Labs on admission was significant for Creat 3.6, BUN 19, Sodium 119, bicarb 21 and wbc 23.4. Daily course: 12/23: Ordered for Covid test, continue Rocephin and Zithromax for now mental status significantly improved we will hold acyclovir for now. Will place on gentle hydration, will follow 2D echo. Continue to monitor CBC and BMP. off BiPAP 12/24: COVID-19 test result pending, 2D echo pending. Renal function improved. Sodium level also improving. Continue gentle hydration, continue IV antibiotics. Follow clinically. Patient on 4 L nasal cannula -wean off as tolerated. 12/25: Patient on room air today. Transfer to [facility]. Assess for home O2 requirement. Continue empiric antibiotic for total 5 days. Sodium and creatinine significantly improved today. If clinically stable possible DC tomor row. 12/26: Will obtain Neurology eval, transfer to COVID unit. Renew restriants. Mental status does not appear to be at baseline yet. Patient with debility will also need PT considering lethargy and fall. 12/27/2020; neurology evaluated the patient, and recommend recommend EEG. He also recommend MRI to be done once the patient is stable. Patient evaluated by ID and recommend to continue with short-term steroids, no need for remdesivir. Nephrology is following the patient, creatinine increased overnight. PT evaluated and recommend home health PT. 10/26/2021; MRI and EEG is pending. Evaluated by PT and recommended home health PT. kidney function is improving. Patient is on steroid. Patient can be discharged after MRI. History Interval history: Patient was seen and evaluated this morning Patient was alert and oriented Hospitalist Physical - Physical exam Narrative exam: Not in cardiopulmonary distress. The patient is obese. Vital signs as documented. Head exam is unremarkable. No scleral icterus . Neck is without jugular venous distension, thyromegaly, or carotid bruits. Lungs are clear to auscultation. Cardiac exam reveals regular rate and Rhythm. Abdominal exam reveals normal bowel sounds, nontender, no organomegaly. Extremities are nonedematous and both femoral and pedal pulses are normal. 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 - Constitutional Vitals: Temp Pulse Resp BP Pulse Ox 98.6 F 66 20 155/86 99 12/28/20 04:31 12/28/20 05:12 12/28/20 04:31 12/28/20 05:12 12/28/20 04:31 General appearance: Present: mild distress HEART Score - HEART Score Troponin: Troponin T < 0.010 ng/mL (0.00-0.029) 12/25/20 14:54 Results - Labs CBC & Chem 7: 12/25/20 04:26 12/28/20 04:41 Labs: Laboratory Last Values WBC 10.5 K/mm3 (4.5-11.0) 12/25/20 04:26 RBC 2.39 M/mm3 (3.65-5.03) L 12/25/20 04:26 Hgb 7.9 gm/dl (11.8-15.2) L 12/25/20 04:26 Hct 23.3 % (35.5-45.6) L 12/25/20 04:26 MCV 98 fl (84-94) H 12/25/20 04:26 MCH 33 pg (28-32) H 12/25/20 04:26 MCHC 34 % (32-34) 12/25/20 04:26 RDW 17.1 % (13.2-15.2) H 12/25/20 04:26 Plt Count 211 K/mm3 (140-440) 12/25/20 04:26 Lymph % (Auto) 3.8 % (13.4-35.0) L 12/24/20 05:34 [place] % (Auto) 6.6 % (0.0-7.3) 12/24/20 05:34 Eos % (Auto) 0.5 % (0.0-4.3) 12/24/20 05:34 Baso % (Auto) 0.5 % (0.0-1.8) 12/24/20 05:34 Lymph # (Auto) 0.6 K/mm3 (1.2-5.4) L 12/24/20 05:34 [place] # (Auto) 1.0 K/mm3 (0.0-0.8) H 12/24/20 05:34 Eos # (Auto) 0.1 K/mm3 (0.0-0.4) 12/24/20 05:34 Baso # (Auto) 0.1 K/mm3 (0.0-0.1) 12/24/20 05:34 Add Manual Diff Complete 12/25/20 04:26 Total Counted 100 12/25/20 04:26 Seg Neutrophils % Biology Manager 12/25/20 04:26 Seg Neuts % (Manual) 91.0 % (40.0-70.0) H 12/25/20 04:26 Band Neutrophils % 8.0 % 12/23/20 04:50 Lymphocytes % (Manual) 5.0 % (13.4-35.0) L 12/25/20 04:26 Monocytes % (Manual) 4.0 % (0.0-7.3) 12/25/20 04:26 Nucleated RBC % Not Reportable 12/25/20 04:26 Seg Neutrophils # 13.6 K/mm3 (1.8-7.7) H 12/24/20 05:34 Seg Neutrophils # Man 9.6 K/mm3 (1.8-7.7) H 12/25/20 04:26 Band Neutrophils # 0.0 K/mm3 12/25/20 04:26 Lymphocytes # (Manual) 0.5 K/mm3 (1.2-5.4) L 12/25/20 04:26 Abs React Lymphs (Man) 0.0 K/mm3 12/25/20 04:26 Monocytes # (Manual) 0.4 K/mm3 (0.0-0.8) 12/25/20 04:26 Eosinophils # (Manual) 0.0 K/mm3 (0.0-0.4) 12/25/20 04:26 Basophils # (Manual) 0.0 K/mm3 (0.0-0.1) 12/25/20 04:26 Metamyelocytes # 0.0 K/mm3 12/25/20 04:26 Myelocytes # 0.0 K/mm3 12/25/20 04:26 Promyelocytes # 0.0 K/mm3 12/25/20 04:26 Blast Cells # 0.0 K/mm3 12/25/20 04:26 WBC Morphology Not Reportable 12/25/20 04:26 Hypersegmented Neuts Not Reportable 12/25/20 04:26 Hyposegmented Neuts Not Reportable 12/25/20 04:26 Hypogranular Neuts Not Reportable 12/25/20 04:26 Smudge Cells Not Reportable 12/25/20 04:26 Toxic Granulation Not Reportable 12/25/20 04:26 Toxic Vacuolation Not Reportable 12/25/20 04:26 Dohle Bodies Not Reportable 12/25/20 04:26 Pelger-Huet Anomaly Not Reportable 12/25/20 04:26 Norm Rods Not Reportable 12/25/20 04:26 Platelet Estimate Consistent w auto 12/25/20 04:26 Clumped Platelets Not Reportable 12/25/20 04:26 Plt Clumps, EDTA Not Reportable 12/25/20 04:26 Large Platelets Not Reportable 12/25/20 04:26 Giant Platelets Not Reportable 12/25/20 04:26 Platelet Satelliting Not Reportable 12/25/20 04:26 Plt Morphology Comment Not Reportable 12/25/20 04:26 RBC Morphology Not Reportable 12/25/20 04:26 Dimorphic RBCs Not Reportable 12/25/20 04:26 Polychromasia Not Reportable 12/25/20 04:26 Hypochromasia 1+ 12/25/20 04:26 Poikilocytosis Not Reportable 12/25/20 04:26 Anisocytosis Few 12/25/20 04:26 Microcytosis Not Reportable 12/25/20 04:26 Macrocytosis Few 12/25/20 04:26 Spherocytes Few 12/25/20 04:26 Pappenheimer Bodies Not Reportable 12/25/20 04:26 Sickle Cells Not Reportable 12/25/20 04:26 Target Cells Few 12/25/20 04:26 Tear Drop Cells Not Reportable 12/25/20 04:26 Ovalocytes Not Reportable 12/25/20 04:26 Helmet Cells Not Reportable 12/25/20 04:26 [place] Bodies Not Reportable 12/25/20 04:26 [place] Rings Not Reportable 12/25/20 04:26 Morelia Cells Not Reportable 12/25/20 04:26 Bite Cells Not Reportable 12/25/20 04:26 Crenated Cell Not Reportable 12/25/20 04:26 Elliptocytes Not Reportable 12/25/20 04:26 Acanthocytes (Spur) Not Reportable 12/25/20 04:26 Rouleaux Not Reportable 12/25/20 04:26 Hemoglobin C Crystals Not Reportable 12/25/20 04:26 Schistocytes Few 12/25/20 04:26 Malaria parasites Not Reportable 12/25/20 04:26 Alexei Bodies Not Reportable 12/25/20 04:26 Hem Pathologist Commnt No 12/25/20 04:26 PT 14.7 Sec. (12.2-14.9) 12/22/20 18:39 INR 1.15 (0.87-1.13) H 12/22/20 18:39 APTT 38.8 Sec. (24.2-36.6) H 12/22/20 18:39 Thrombin Time 16.8 Sec. (15.1-19.6) 12/22/20 18:39 D-Dimer 1343.49 ng/mlDDU (0-234) H 12/24/20 16:00 ABG pH 7.484 (7.320-7.450) H 12/23/20 00:23 POC ABG pCO2 24.9 mmHg (32.0-48.0) L 12/23/20 00:23 POC ABG pO2 80.9 mmHg (83-108) L 12/23/20 00:23 POC ABG HCO3 18.3 12/23/20 00:23 POC ABG Base Excess -3.9 12/23/20 00:23 ABG Hemoglobin 10.4 (12.0-17.5) L 12/23/20 00:23 ABG Sodium 123.4 mmol/L (136.0-145.0) L 12/23/20 00:23 ABG Potassium 4.2 mmol/L (3.40-4.50) 12/23/20 00:23 ABG Chloride 95.0 mmol/L (98-107) L 12/23/20 00:23 ABG Glucose 77 mg/dL (65-95) 12/23/20 00:23 FiO2 28 12/23/20 00:23 Sodium 137 mmol/L (137-145) 12/28/20 04:41 Potassium 4.1 mmol/L (3.6-5.0) 12/28/20 04:41 Chloride 102.9 mmol/L (98-107) 12/28/20 04:41 Carbon Dioxide 22 mmol/L (22-30) 12/28/20 04:41 Anion Gap 16 mmol/L 12/28/20 04:41 BUN 31 mg/dL (9-20) H 12/28/20 04:41 Creatinine 1.5 mg/dL (0.8-1.3) H 12/28/20 04:41 Estimated GFR > 60 ml/min 12/28/20 04:41 BUN/Creatinine Ratio 21 % 12/28/20 04:41 Glucose 163 mg/dL (75-100) H 12/28/20 04:41 POC Glucose 145 mg/dL (70-105) H 12/28/20 07:20 Lactic Acid 1.30 mmol/L (0.7-2.0) 12/23/20 04:50 Calcium 7.9 mg/dL (8.4-10.2) L 12/28/20 04:41 Total Bilirubin 0.20 mg/dL (0.1-1.2) 12/23/20 04:50 AST 32 units/L (5-40) 12/23/20 04:50 ALT 10 units/L (7-56) 12/23/20 04:50 Alkaline Phosphatase 49 units/L (35-129) 12/23/20 04:50 Troponin T < 0.010 ng/mL (0.00-0.029) 12/25/20 14:54 Total Protein 5.9 g/dL (6.3-8.2) L 12/23/20 04:50 Albumin 2.3 g/dL (3.9-5) L 12/23/20 04:50 Albumin/Globulin Ratio 0.6 % 12/23/20 04:50 Triglycerides 121 mg/dL (2-149) 12/22/20 18:39 Cholesterol 92 mg/dL (50-199) 12/22/20 18:39 LDL Cholesterol Direct 10 mg/dL (50-130) L 12/22/20 18:39 HDL Cholesterol 66 mg/dL (40-59) H 12/22/20 18:39 Cholesterol/HDL Ratio 1.39 % 12/22/20 18:39 Vitamin B12 448.2 pg/mL (211-911) 12/25/20 14:59 Procalcitonin 33.83 ng/mL (<0.15) 12/24/20 18:00 Arterial Blood Glucose 77 mg/dL (65-95) 12/23/20 00:23 Arterial Blood Ionized Calcium 3.7 mg/dL (4.6-5.3) L 12/23/20 00:23 Urine Color Charu (Yellow) 12/22/20 23:18 Urine Turbidity Slightly-cloudy (Clear) 12/22/20 23:18 Urine pH 5.0 (5.0-7.0) 12/22/20 23:18 Ur Specific [place] 1.015 (1.003-1.030) 12/22/20 23:18 Urine Protein 100 mg/dl mg/dL (Negative) 12/22/20 23:18 Urine Glucose (UA) Neg mg/dL (Negative) 12/22/20 23:18 Urine Ketones Neg mg/dL (Negative) 12/22/20 23:18 Urine Blood Sm (Negative) 12/22/20 23:18 Urine Nitrite Neg (Negative) 12/22/20 23:18 Urine Bilirubin Neg (Negative) 12/22/20 23:18 Urine Urobilinogen 4.0 mg/dL (<2.0) 12/22/20 23:18 Ur Leukocyte Esterase Neg (Negative) 12/22/20 23:18 Urine WBC (Auto) 2.0 /HPF (0.0-6.0) 12/22/20 23:18 Urine RBC (Auto) 6.0 /HPF (0.0-6.0) 12/22/20 23:18 U Epithel Cells (Auto) 1.0 /HPF (0-13.0) 12/22/20 23:18 Hyaline Casts 8 /LPF 12/22/20 23:18 Urine Mucus Few /HPF 12/22/20 23:18 Urine Yeast (Budding) 1+ /HPF 12/22/20 23:18 Urine Creatinine 233.3 mg/dL (0.1-20.0) H 12/22/20 23:18 Urine Sodium 32 mmol/L 12/22/20 23:18 Coronavirus (PCR) Positive (Negative) A 12/24/20 11:10 Blood Type O POSITIVE 12/22/20 19:38 Antibody Screen Negative 12/22/20 19:38 Microbiology: Microbiology 12/22/20 19:38 Peripheral/Venous Blood Culture - Final NO GROWTH AFTER 5 DAYS 12/22/20 19:38 Peripheral/Venous Blood Culture - Final NO GROWTH AFTER 5 DAYS Waters/IV: Voiding Method Urinal Active Medications - Current Medications Current Medications: Generic Name Dose Route Start Last Admin Trade Name Freq PRN Reason Stop Dose Admin Acetaminophen 650 mg 12/22/20 19:29 12/23/20 19:52 Acetaminophen 325 Mg Tab PO 650 mg Q4H PRN Administration Pain MILD(1-3)/Fever >100.5/HARP Albuterol 2 puff 12/26/20 20:37 Albuterol 8.5 Gm Mdi Inhalation IH Q4HRT PRN Shortness Of Breath Allopurinol 100 mg 12/24/20 10:00 12/27/20 09:44 Allopurinol 100 Mg Tab PO 100 mg QDAY AGUS Administration Apixaban 2.5 mg 12/25/20 11:00 12/27/20 21:39 Apixaban 2.5 Mg Tab PO 2.5 mg Q12HR AGUS Administration Protocol Ascorbic Acid 1,000 mg 12/24/20 22:00 12/27/20 21:38 Ascorbic Acid 500 Mg Tab PO 1,000 mg BID AGUS Administration Aspirin 81 mg 12/24/20 10:00 12/27/20 09:44 Aspirin 81 Mg Tab Chew PO 81 mg DAILY AGUS Administration Carvedilol 6.25 mg 12/23/20 22:00 12/27/20 21:38 Carvedilol 6.25 Mg Tab PO 6.25 mg BID AGUS Administration Cholecalciferol 5,000 unit 12/25/20 10:00 12/27/20 09:44 Cholecalciferol (Vit D3) 5,000 Unit Tab PO 5,000 unit DAILY AGUS Administration Dexamethasone 6 mg 12/24/20 18:00 12/27/20 17:04 Dexamethasone 2 Mg Tab PO 01/02/21 18:01 6 mg Q24H AGUS Administration Dextrose 50 ml 12/23/20 11:11 Dextrose 50% In Water (25gm) 50 Ml Syringe IV Q30MIN PRN Hypoglycemia Protocol Folic Acid 1 mg 12/24/20 10:00 12/27/20 09:44 Folic Acid 1 Mg Tab PO 1 mg QDAY AGUS Administration Hydralazine HCl 50 mg 12/26/20 06:17 12/28/20 05:12 Hydralazine 25 Mg Tab PO 50 mg Q8HR AGUS Administration Hydromorphone HCl 0.25 mg 12/22/20 19:29 12/24/20 03:40 Hydromorphone 1 Mg/1 Ml Inj IV 0.25 mg Q4H PRN Administration Pain, Moderate (4-6) Insulin Human Regular 0 units 12/25/20 16:30 12/27/20 22:55 Insulin Regular, Human 100 Units/1 Ml SUB-Q Not Given ACHS [facility] Protocol Isosorbide Dinitrate 20 mg 12/23/20 20:00 12/27/20 20:05 Isosorbide Dinitrate 20 Mg Tab PO 20 mg TID AGUS Administration Ondansetron HCl 4 mg 12/22/20 19:29 12/23/20 16:45 Ondansetron 4 Mg/2 Ml Inj IV 4 mg Q8H PRN Administration Nausea And Vomiting Sodium Bicarbonate 650 mg 12/25/20 20:00 12/27/20 20:05 Sodium Bicarbonate 650 Mg Tab PO 650 mg TID AGUS Administration Sodium Chloride 10 ml 12/22/20 22:00 12/27/20 21:38 Sodium Chloride 0.9% 10 Ml Flush Syringe IV 10 ml BID AGUS Administration Sodium Chloride 10 ml 12/22/20 19:29 Sodium Chloride 0.9% 10 Ml Flush Syringe IV PRN PRN LINE FLUSH Zinc Sulfate 220 mg 12/24/20 22:00 12/27/20 21:38 Zinc Sulfate 220 Mg Cap PO 220 mg BID AGUS Administration
[2020-12-28] MEDS: INSULIN REGULAR, HUMAN 100 UNITS/1 ML SUB-Q SCH ×3 (10:18→19:01)
[2020-12-28] MEDS: SODIUM BICARBONATE 650 MG TAB PO SCH ×3 (10:19→20:16)
[2020-12-28] MEDS: ISOSORBIDE DINITRATE 20 MG TAB PO SCH ×3 (10:19→20:18)
[2020-12-28] MEDS: ASPIRIN 81 MG TAB CHEW PO SCH (10:20)
[2020-12-28] MEDS: ASCORBIC ACID 500 MG TAB PO SCH ×2 (10:20→22:20)
[2020-12-28] MEDS: CHOLECALCIFEROL (VIT D3) 5,000 UNIT TAB PO SCH (10:20)
[2020-12-28] MEDS: APIXABAN 2.5 MG TAB PO SCH ×2 (10:20→22:21)
[2020-12-28] MEDS: carvediloL 6.25 MG TAB PO SCH ×2 (10:20→22:20)
[2020-12-28] MEDS: allopurinoL 100 MG TAB PO SCH (10:20)
[2020-12-28] MEDS: FOLIC ACID 1 MG TAB PO SCH (10:20)
[2020-12-28] MEDS: ZINC SULFATE 220 MG CAP PO SCH ×2 (10:21→22:22)
[2020-12-28] MEDS ORDERED: cefTRIAXone/NS 2 GM/100 ML 2 GM/100 ML BAG IV ONE (11:00)
[2020-12-28] MEDS: cefTRIAXone/NS 2 GM/100 ML 2 GM/100 ML BAG IV SCH (11:44)
--- NOTE | 2020-12-28 13:38 | Progress Note ---
Assessment and Plan 1. Acute kidney injury: Vasomotor MARY superimposed on CKD. Low FeNa. Renal US ordered, pending. Monitor renal function. Creatinine level is better since yesterday. Encouraged PO fluids. Avoid nephrotoxic agents. Meds dosage based on GFR. 2. FEN: Metabolic acidosis, on Sod bicarb, monitor. Hyponatremia, Sod bicarb, monitor. Monitor lytes. 3. Acute respiratory failure: CXR showed right lung base opacity. Patient positive for COVID-19 test. Was on BIPAP. Decadron. 4. Sepsis: 2/2 PNA. Continue Abx and follow culture results. 5. 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 6. Toxic metabolic encephalopathy: Improved. 7. Anemia, POA: Monitor. 8. DM type 2: Monitor blood glucose. 9. Hypertension: Monitor. Subjective: Patient was seen and examined at the bedside. Doing ok. Examination: General appearance: well-developed, appears stated age, obese, on RA HEENT: ATNC, Pupils equal Neck: Trachea midline Respiratory: ctab Cardiology: regular, S1S2, no murmur Gastrointestinal: normoactive bowel sounds, no tenderness, not distended, obese Integumentary: warm and dry, scattered eczema, LE chronic changes Neurologic: alert, conversing, able to move extremities Ext: trace LE edema Subjective Date of service: 12/28/20 Objective - Vital Signs Vital signs: Vital Signs - 12hr 12/28/20 12/28/20 04:31 05:12 Temperature 98.6 F Pulse Rate 66 66 Respiratory 20 Rate Blood Pressure 155/86 155/86 O2 Sat by Pulse 99 Oximetry - Lab 12/25/20 04:26 12/28/20 04:41 Most recent lab results ABG pH 7.484 (7.320-7.450) H 12/23/20 00:23 Calcium 7.9 mg/dL (8.4-10.2) L 12/28/20 04:41 Urine Creatinine 233.3 mg/dL (0.1-20.0) H 12/22/20 23:18 Urine Sodium 32 mmol/L 12/22/20 23:18 Medications & Allergies - Medications Allergies/Adverse Reactions: Allergies No Known Allergies Allergy (Unverified 01/19/20 19:36) Home Medications: Home Medications Medication Instructions Recorded Confirmed Last Taken Type Aspirin [Aspirin BABY CHEW TAB] 81 mg PO DAILY 12/23/20 12/23/20 Unknown History Folic Acid [Folvite] 1 mg PO QDAY 12/23/20 12/23/20 Unknown History Insulin Glargine [Lantus VIAL] 25 unit SUB-Q QHS 12/23/20 12/23/20 Unknown History Isosorbide Dinitrate [Isordil] 20 mg PO TID 12/23/20 12/23/20 Unknown History Lispro Insulin [HumaLOG] 5 unit SQ TID 12/23/20 12/23/20 Unknown History Torsemide [Demadex] 100 mg PO QDAY 12/23/20 12/23/20 Unknown History allopurinoL [Zyloprim] 100 mg PO QDAY 12/23/20 12/23/20 Unknown History carvediloL [Coreg] 6.25 mg PO BID 12/23/20 12/23/20 Unknown History hydrALAZINE [Apresoline] 25 mg PO Q8HR 12/23/20 12/23/20 Unknown History metFORMIN [Glucophage] 500 mg PO BID 12/23/20 12/23/20 Unknown History Active Medications: Generic Name Dose Route Start Last Admin Trade Name Freq PRN Reason Stop Dose Admin Acetaminophen 650 mg 12/22/20 19:29 12/23/20 19:52 Acetaminophen 325 Mg Tab PO 650 mg Q4H PRN Administration Pain MILD(1-3)/Fever >100.5/HARP Albuterol 2 puff 12/26/20 20:37 Albuterol 8.5 Gm Mdi Inhalation IH Q4HRT PRN Shortness Of Breath Allopurinol 100 mg 12/24/20 10:00 12/28/20 10:20 Allopurinol 100 Mg Tab PO 100 mg QDAY AGUS Administration Apixaban 2.5 mg 12/25/20 11:00 12/28/20 10:20 Apixaban 2.5 Mg Tab PO 2.5 mg Q12HR AGUS Administration Protocol Ascorbic Acid 1,000 mg 12/24/20 22:00 12/28/20 10:20 Ascorbic Acid 500 Mg Tab PO 1,000 mg BID AGUS Administration Aspirin 81 mg 12/24/20 10:00 12/28/20 10:20 Aspirin 81 Mg Tab Chew PO 81 mg DAILY AGUS Administration Carvedilol 6.25 mg 12/23/20 22:00 02/14/21 10:20 Carvedilol 6.25 Mg Tab PO 6.25 mg BID AGUS Administration Cholecalciferol 5,000 unit 12/25/20 10:00 12/28/20 10:20 Cholecalciferol (Vit D3) 5,000 Unit Tab PO 5,000 unit DAILY AGUS Administration Dexamethasone 6 mg 12/24/20 18:00 12/27/20 17:04 Dexamethasone 2 Mg Tab PO 01/02/21 18:01 6 mg Q24H AGUS Administration Dextrose 50 ml 12/23/20 11:11 Dextrose 50% In Water (25gm) 50 Ml Syringe IV Q30MIN PRN Hypoglycemia Protocol Folic Acid 1 mg 12/24/20 10:00 12/28/20 10:20 Folic Acid 1 Mg Tab PO 1 mg QDAY AGUS Administration Hydralazine HCl 50 mg 12/26/20 06:17 12/28/20 05:12 Hydralazine 25 Mg Tab PO 50 mg Q8HR AGUS Administration Hydromorphone HCl 0.25 mg 12/22/20 19:29 12/24/20 03:40 Hydromorphone 1 Mg/1 Ml Inj IV 0.25 mg Q4H PRN Administration Pain, Moderate (4-6) Insulin Human Regular 0 units 12/25/20 16:30 12/28/20 11:45 Insulin Regular, Human 100 Units/1 Ml SUB-Q Not Given ACHS [facility] Protocol Isosorbide Dinitrate 20 mg 12/23/20 20:00 12/28/20 10:19 Isosorbide Dinitrate 20 Mg Tab PO 20 mg TID AGUS Administration Ondansetron HCl 4 mg 12/22/20 19:29 12/23/20 16:45 Ondansetron 4 Mg/2 Ml Inj IV 4 mg Q8H PRN Administration Nausea And Vomiting Sodium Bicarbonate 650 mg 12/25/20 20:00 12/28/20 10:19 Sodium Bicarbonate 650 Mg Tab PO 650 mg TID AGUS Administration Sodium Chloride 10 ml 12/22/20 22:00 12/28/20 10:21 Sodium Chloride 0.9% 10 Ml Flush Syringe IV 10 ml BID AGUS Administration Sodium Chloride 10 ml 12/22/20 19:29 Sodium Chloride 0.9% 10 Ml Flush Syringe IV PRN PRN LINE FLUSH Zinc Sulfate 220 mg 12/24/20 22:00 12/28/20 10:21 Zinc Sulfate 220 Mg Cap PO 220 mg BID AGUS Administration
[2020-12-28] MEDS: DEXAMETHASONE 2 MG TAB PO SCH (18:00)
--- NOTE | 2020-12-28 19:14 | Magnetic Resonance Report ---
MR brain wo con INDICATION / CLINICAL INFORMATION: 50 years Male; cva. TECHNIQUE: Multiplanar, multisequence MR images of the brain were obtained. COMPARISON: CT head-12/22/2020 FINDINGS: BRAIN / INTRACRANIAL CONTENTS: There are scattered, punctate areas of increased diffusion signal in the white matter of the cerebral hemispheres. These findings do not demonstrate obvious ADC map abnormality and may be related to T2 shine through artifact or subacute injury. There is also periventricular disease seen bilaterally. Th e periventricular lesions somewhat have the appearance of Houser's fingers-demyelinating disease migh t be a consideration. Microangiopathy could be considered as well. Otherwise, no acute ischemia, acute hemorrhage, or hydrocephalus. CRANIOCERVICAL JUNCTION: No significant abnormality. VASCULAR FLOW-VOIDS: No significant abnormality. ORBITS: No significant abnormality of visualized orbits. SINUSES / MASTOIDS: Mucous retention cyst/polyps seen in the maxillary antra. Mild to moderate mucosa l thickening seen in the mastoids. ADDITIONAL FINDINGS: None. IMPRESSION: 1. White matter findings as described above. Demyelinating disease, microangiopathy, vasculitis, etc. might be considered. Please clinically correlate. 2. No focal mass, hemorrhage, hydrocephalus, or large territorial infarct seen. Signer Name: Lenin Romano MD, III Signed: 12/28/2020 7:10 PM Workstation Name: [id number]
[2020-12-29] MEDS: INSULIN REGULAR, HUMAN 100 UNITS/1 ML SUB-Q SCH ×5 (00:38→22:41)
[2020-12-29 05:24] LABS: BUN/Creatinine Ratio 24; Blood Urea Nitrogen 31 mg/dL (9-20); Calcium 7.7 mg/dL (8.4-10.2); Hemolysis Index 1
[2020-12-29] MEDS: hydrALAZINE 25 MG TAB PO SCH ×3 (05:32→22:32)
[2020-12-29] MEDS: SODIUM BICARBONATE 650 MG TAB PO SCH ×3 (08:16→21:08)
--- NOTE | 2020-12-29 08:20 | Progress Note ---
Assessment and Plan Assessment and plan: -- Sepsis Likely due to pneumonia with COVID-19, Sepsis protocol, serial lactic acid level. --COVID-19 pneumonia -Continue isolation, patient started on dexamethasone 6 mg p.o. daily -Patient tested positive for COVID-19 virus 12/24 - CXR: Cardiomegaly with opacity in the right lung base, which may reflect pulmonary edema in the setting of CHF or may reflect atypical infectious or inflammatory pneumonitis. -Continue Zithromax and Rocephin as procalcitonin level is high -Placed on dexamethasone for total 10 days -No need for remdesivir as patient currently on room air -Infectious disease consulted, appreciate recommendations -Droplet/contact isolation -Continue SPO2 monitoring -Supplemental oxygen as needed -Pulmonary hygiene -Prone to sleep -Vitamin C, vitamin D, zinc -Anticoagulation per protocol -Lasix IV as needed to prevent pulmonary edema --Acute hypoxic respiratory failure, POA Likely from PNA, now resolved Required Bipap on admission, now supplemental O2 -- Toxic metabolic encephalopathy Likely due to sepsis and dehydration CT Head without any acute process, Continue neuro check, seizure precautions, aspiration precautions, treat sepsis -- MARY with vasomotor nephropathy, resolved Likely due to sepsis and underlying dehydration Nephrology team consulted, IV fluid resuscitation therapy, monitor urine output every shift, --Hypertension, adjust BP meds as needed --Diabetes mellitus type 2, continue consistent carb diet and SSI -- Hyponatremia syndrome Likely due to dehydration --Metabolic acidosis Likely due to sepsis and dehydration --Elevated troponin, likely NSTEMI type II in light of elevated creatinine 2D echo ordered pending, patient denies any chest pain --Macrocytic anemia, ordered vitamin B12 and folic acid level Monitor H&H, no sign of active bleeding -- DVT prophylaxis SCD to bilateral lower extremities while in bed Brief History: The patient is a 50 YO male with history significant for Obesity, HTN, DM type 2, CKD, OA, Gout and CHF with unknown EF who presented to [facility] ED 12/22 for evaluation of AMS. Per family patient has experienced increased weakness and confusion of 1 day duration. Patient was transported thru EMS and suspected for CVA. A code stroke was called. The patient was found to have sepsis with p ossible pneumonia, toxic metabolic encephalopathy, acute kidney injury, hyponatremia, and metabolic acidosis. Patient initiated on sepsis protocol and admitted to [facility]. Labs on admission was significant for Creat 3.6, BUN 19, Sodium 119, bicarb 21 and wbc 23.4. Daily course: 12/23: Ordered for Covid test, continue Rocephin and Zithromax for now mental status significantly improved we will hold acyclovir for now. Will place on gentle hydration, will follow 2D echo. Continue to monitor CBC and BMP. off BiPAP 12/24: COVID-19 test result pending, 2D echo pending. Renal function improved. Sodium level also improving. Continue gentle hydration, continue IV antibiot ics. Follow clinically. Patient on 4 L nasal cannula -wean off as tolerated. 12/25: Patient on room air today. Transfer to [facility]. Assess for home O2 requirement. Continue empiric antibiotic for total 5 days. Sodium and creatinine significantly improved today. If clinically stable possible DC tomorrow. 12/26: Will obtain Neurology eval, transfer to COVID unit. Renew restriants. Mental status does not appear to be at baseline yet. Patient with debility will also need PT considering lethargy and fall. 12/27/2020; neurology evaluated the patient, and recommend recommend EEG. He also recommend MRI to be done once the patient is stable. Patient evaluated by ID and recommend to continue with short-term steroids, no need for remdesivir. Nephrology is following the patient, creatinine increased overnight. PT evaluated and recommend home health PT. 12/28/2020; MRI and EEG is pending. Evaluated by PT and recommended home health PT. kidney function is improving. Patient is on steroid. Patient can be discharged after MRI 12/29/2020. Acute kidney injury is secondary to vasomotor nephropathy superimposed on CKD. Follow-up renal ultrasound. Creatinine is improved and will continue to monitor functioning. Encourage p.o., avoid nephrotoxic agents. Continue Decadron for COVID-19 pneumonia (right lung base opacity). Continue empiric antibiotics for completion of 5 days given elevated procalcitonin. Abnormal MRIwhite matter findings suggestive of possible demyelinating d isease, microangiopathy, vasculitis, etc. We will follow-up with neurology. Physical therapy recommends home health PT History Interval history: No new issues overnight Hospitalist Physical - Constitutional Vitals: Temp Pulse Resp BP Pulse Ox 98.1 F 70 20 156/83 100 12/29/20 04:29 12/29/20 05:32 12/29/20 04:29 12/29/20 05:32 12/29/20 04:29 General appearance: Present: no acute distress - EENT Eyes: Present: PERRL, EOM intact ENT: hearing intact, clear oral mucosa, dentition normal - Neck Neck: Present: supple, normal ROM - Respiratory Respiratory effort: normal Respiratory: bilateral: CTA - Cardiovascular Rhythm: regular Heart Sounds: Present: S1 & S2. Absent: gallop, rub - Extremities Extremities: no ischemia, No edema, Full ROM - Abdominal General gastrointestinal: soft, non-tender, non-distended, normal bowel sounds - Integumentary Integumentary: Present: clear, warm, dry - Neurologic Neurologic: CNII-XII intact, moves all extremities HEART Score - HEART Score Troponin: Troponin T < 0.010 ng/mL (0.00-0.029) 12/25/20 14:54 Results - Labs CBC & Chem 7: 12/25/20 04:26 12/29/20 04:12 Labs: Laboratory Last Values WBC 10.5 K/mm3 (4.5-11.0) 12/25/20 04:26 RBC 2.39 M/mm3 (3.65-5.03) L 12/25/20 04:26 Hgb 7.9 gm/dl (11.8-15.2) L 12/25/20 04:26 Hct 23.3 % (35.5-45.6) L 12/25/20 04:26 MCV 98 fl (84-94) H 12/25/20 04:26 MCH 33 pg (28-32) H 12/25/20 04:26 MCHC 34 % (32-34) 12/25/20 04:26 RDW 17.1 % (13.2-15.2) H 12/25/20 04:26 Plt Count 211 K/mm3 (140-440) 12/25/20 04:26 Lymph % (Auto) 3.8 % (13.4-35.0) L 12/24/20 05:34 Sumner % (Auto) 6.6 % (0.0-7.3) 12/24/20 05:34 Eos % (Auto) 0.5 % (0.0-4.3) 12/24/20 05:34 Baso % (Auto) 0.5 % (0.0-1.8) 12/24/20 05:34 Lymph # (Auto) 0.6 K/mm3 (1.2-5.4) L 12/24/20 05:34 Sumner # (Auto) 1.0 K/mm3 (0.0-0.8) H 12/24/20 05:34 Eos # (Auto) 0.1 K/mm3 (0.0-0.4) 12/24/20 05:34 Baso # (Auto) 0.1 K/mm3 (0.0-0.1) 12/24/20 05:34 Add Manual Diff Complete 12/25/20 04:26 Total Counted 100 12/25/20 04:26 Seg Neutrophils % Precipitator Supervisor 12/25/20 04:26 Seg Neuts % (Manual) 91.0 % (40.0-70.0) H 12/25/20 04:26 Band Neutrophils % 8.0 % 12/23/20 04:50 Lymphocytes % (Manual) 5.0 % (13.4-35.0) L 12/25/20 04:26 Monocytes % (Manual) 4.0 % (0.0-7.3) 12/25/20 04:26 Nucleated RBC % Not Reportable 12/25/20 04:26 Seg Neutrophils # 13.6 K/mm3 (1.8-7.7) H 12/24/20 05:34 Seg Neutrophils # Man 9.6 K/mm3 (1.8-7.7) H 12/25/20 04:26 Band Neutrophils # 0.0 K/mm3 12/25/20 04:26 Lymphocytes # (Manual) 0.5 K/mm3 (1.2-5.4) L 12/25/20 04:26 Abs React Lymphs (Man) 0.0 K/mm3 12/25/20 04:26 Monocytes # (Manual) 0.4 K/mm3 (0.0-0.8) 12/25/20 04:26 Eosinophils # (Manual) 0.0 K/mm3 (0.0-0.4) 12/25/20 04:26 Basophils # (Manual) 0.0 K/mm3 (0.0-0.1) 12/25/20 04:26 Metamyelocytes # 0.0 K/mm3 12/25/20 04:26 Myelocytes # 0.0 K/mm3 12/25/20 04:26 Promyelocytes # 0.0 K/mm3 12/25/20 04:26 Blast Cells # 0.0 K/mm3 12/25/20 04:26 WBC Morphology Not Reportable 12/25/20 04:26 Hypersegmented Neuts Not Reportable 12/25/20 04:26 Hyposegmented Neuts Not Reportable 12/25/20 04:26 Hypogranular Neuts Not Reportable 12/25/20 04:26 Smudge Cells Not Reportable 12/25/20 04:26 Toxic Granulation Not Reportable 12/25/20 04:26 Toxic Vacuolation Not Reportable 12/25/20 04:26 Dohle Bodies Not Reportable 12/25/20 04:26 Pelger-Huet Anomaly Not Reportable 12/25/20 04:26 Norm Rods Not Reportable 12/25/20 04:26 Platelet Estimate Consistent w auto 12/25/20 04:26 Clumped Platelets Not Reportable 12/25/20 04:26 Plt Clumps, EDTA Not Reportable 12/25/20 04:26 Large Platelets Not Reportable 12/25/20 04:26 Giant Platelets Not Reportable 12/25/20 04:26 Platelet Satelliting Not Reportable 12/25/20 04:26 Plt Morphology Comment Not Reportable 12/25/20 04:26 RBC Morphology Not Reportable 12/25/20 04:26 Dimorphic RBCs Not Reportable 12/25/20 04:26 Polychromasia Not Reportable 12/25/20 04:26 Hypochromasia 1+ 12/25/20 04:26 Poikilocytosis Not Reportable 12/25/20 04:26 Anisocytosis Few 12/25/20 04:26 Microcytosis Not Reportable 12/25/20 04:26 Macrocytosis Few 12/25/20 04:26 Spherocytes Few 12/25/20 04:26 Pappenheimer Bodies Not Reportable 12/25/20 04:26 Sickle Cells Not Reportable 12/25/20 04:26 Target Cells Few 12/25/20 04:26 Tear Drop Cells Not Reportable 12/25/20 04:26 Ovalocytes Not Reportable 12/25/20 04:26 Helmet Cells Not Reportable 12/25/20 04:26 [place] Bodies Not Reportable 12/25/20 04:26 [place] Rings Not Reportable 12/25/20 04:26 [place] Cells Not Reportable 12/25/20 04:26 Bite Cells Not Reportable 12/25/20 04:26 Crenated Cell Not Reportable 12/25/20 04:26 Elliptocytes Not Reportable 12/25/20 04:26 Acanthocytes (Spur) Not Reportable 12/25/20 04:26 Rouleaux Not Reportable 12/25/20 04:26 Hemoglobin C Crystals Not Reportable 12/25/20 04:26 Schistocytes Few 12/25/20 04:26 Malaria parasites Not Reportable 12/25/20 04:26 Alexei Bodies Not Reportable 12/25/20 04:26 Hem Pathologist Commnt No 12/25/20 04:26 PT 14.7 Sec. (12.2-14.9) 12/22/20 18:39 INR 1.15 (0.87-1.13) H 12/22/20 18:39 APTT 38.8 Sec. (24.2-36.6) H 12/22/20 18:39 Thrombin Time 16.8 Sec. (15.1-19.6) 12/22/20 18:39 D-Dimer 1343.49 ng/mlDDU (0-234) H 12/24/20 16:00 ABG pH 7.484 (7.320-7.450) H 12/23/20 00:23 POC ABG pCO2 24.9 mmHg (32.0-48.0) L 12/23/20 00:23 POC ABG pO2 80.9 mmHg (83-108) L 12/23/20 00:23 POC ABG HCO3 18.3 12/23/20 00:23 POC ABG Base Excess -3.9 12/23/20 00:23 ABG Hemoglobin 10.4 (12.0-17.5) L 12/23/20 00:23 ABG Sodium 123.4 mmol/L (136.0-145.0) L 12/23/20 00:23 ABG Potassium 4.2 mmol/L (3.40-4.50) 12/23/20 00:23 ABG Chloride 95.0 mmol/L (98-107) L 12/23/20 00:23 ABG Glucose 77 mg/dL (65-95) 12/23/20 00:23 FiO2 28 12/23/20 00:23 Sodium 137 mmol/L (137-145) 12/29/20 04:12 Potassium 4.1 mmol/L (3.6-5.0) 12/29/20 04:12 Chloride 103.8 mmol/L (98-107) 12/29/20 04:12 Carbon Dioxide 22 mmol/L (22-30) 12/29/20 04:12 Anion Gap 15 mmol/L 12/29/20 04:12 BUN 31 mg/dL (9-20) H 12/29/20 04:12 Creatinine 1.3 mg/dL (0.8-1.3) 12/29/20 04:12 Estimated GFR > 60 ml/min 12/29/20 04:12 BUN/Creatinine Ratio 24 % 12/29/20 04:12 Glucose 165 mg/dL (75-100) H 12/29/20 04:12 POC Glucose 155 mg/dL (70-105) H 12/28/20 16:05 Lactic Acid 1.30 mmol/L (0.7-2.0) 12/23/20 04:50 Calcium 7.7 mg/dL (8.4-10.2) L 12/29/20 04:12 Total Bilirubin 0.20 mg/dL (0.1-1.2) 12/23/20 04:50 AST 32 units/L (5-40) 12/23/20 04:50 ALT 10 units/L (7-56) 12/23/20 04:50 Alkaline Phosphatase 49 units/L (35-129) 12/23/20 04:50 Troponin T < 0.010 ng/mL (0.00-0.029) 12/25/20 14:54 Total Protein 5.9 g/dL (6.3-8.2) L 12/23/20 04:50 Albumin 2.3 g/dL (3.9-5) L 12/23/20 04:50 Albumin/Globulin Ratio 0.6 % 12/23/20 04:50 Triglycerides 121 mg/dL (2-149) 12/22/20 18:39 Cholesterol 92 mg/dL (50-199) 12/22/20 18:39 LDL Cholesterol Direct 10 mg/dL (50-130) L 12/22/20 18:39 HDL Cholesterol 66 mg/dL (40-59) H 12/22/20 18:39 Cholesterol/HDL Ratio 1.39 % 12/22/20 18:39 Vitamin B12 448.2 pg/mL (211-911) 12/25/20 14:59 Procalcitonin 33.83 ng/mL (<0.15) 12/24/20 18:00 Arterial Blood Glucose 77 mg/dL (65-95) 12/23/20 00:23 Arterial Blood Ionized Calcium 3.7 mg/dL (4.6-5.3) L 12/23/20 00:23 Urine Color Charu (Yellow) 12/22/20 23:18 Urine Turbidity Slightly-cloudy (Clear) 12/22/20 23:18 Urine pH 5.0 (5.0-7.0) 12/22/20 23:18 Ur Specific [place] 1.015 (1.003-1.030) 12/22/20 23:18 Urine Protein 100 mg/dl mg/dL (Negative) 12/22/20 23:18 Urine Glucose (UA) Neg mg/dL (Negative) 12/22/20 23:18 Urine Ketones Neg mg/dL (Negative) 12/22/20 23:18 Urine Blood Sm (Negative) 12/22/20 23:18 Urine Nitrite Neg (Negative) 12/22/20 23:18 Urine Bilirubin Neg (Negative) 12/22/20 23:18 Urine Urobilinogen 4.0 mg/dL (<2.0) 12/22/20 23:18 Ur Leukocyte Esterase Neg (Negative) 12/22/20 23:18 Urine WBC (Auto) 2.0 /HPF (0.0-6.0) 12/22/20 23:18 Urine RBC (Auto) 6.0 /HPF (0.0-6.0) 12/22/20 23:18 U Epithel Cells (Auto) 1.0 /HPF (0-13.0) 12/22/20 23:18 Hyaline Casts 8 /LPF 12/22/20 23:18 Urine Mucus Few /HPF 12/22/20 23:18 Urine Yeast (Budding) 1+ /HPF 12/22/20 23:18 Urine Creatinine 233.3 mg/dL (0.1-20.0) H 12/22/20 23:18 Urine Sodium 32 mmol/L 12/22/20 23:18 Coronavirus (PCR) Positive (Negative) A 12/24/20 11:10 Blood Type O POSITIVE 12/22/20 19:38 Antibody Screen Negative 12/22/20 19:38 Waters/IV: Voiding Method Urinal Active Medications - Current Medications Current Medications: Generic Name Dose Route Start Last Admin Trade Name Freq PRN Reason Stop Dose Admin Acetaminophen 650 mg 12/22/20 19:29 12/23/20 19:52 Acetaminophen 325 Mg Tab PO 650 mg Q4H PRN Administration Pain MILD(1-3)/Fever >100.5/HARP Albuterol 2 puff 12/26/20 20:37 Albuterol 8.5 Gm Mdi Inhalation IH Q4HRT PRN Shortness Of Breath Allopurinol 100 mg 12/24/20 10:00 12/28/20 10:20 Allopurinol 100 Mg Tab PO 100 mg QDAY AGUS Administration Apixaban 2.5 mg 12/25/20 11:00 12/28/20 22:21 Apixaban 2.5 Mg Tab PO 2.5 mg Q12HR AGUS Administration Protocol Ascorbic Acid 1,000 mg 12/24/20 22:00 12/28/20 22:20 Ascorbic Acid 500 Mg Tab PO 1,000 mg BID AGUS Administration Aspirin 81 mg 12/24/20 10:00 12/28/20 10:20 Aspirin 81 Mg Tab Chew PO 81 mg DAILY AGUS Administration Carvedilol 6.25 mg 12/23/20 22:00 12/28/20 22:20 Carvedilol 6.25 Mg Tab PO 6.25 mg BID AGUS Administration Cholecalciferol 5,000 unit 12/25/20 10:00 12/28/20 10:20 Cholecalciferol (Vit D3) 5,000 Unit Tab PO 5,000 unit DAILY AGUS Administration Dexamethasone 6 mg 12/24/20 18:00 12/28/20 18:00 Dexamethasone 2 Mg Tab PO 01/02/21 18:01 6 mg Q24H AGUS Administration Dextrose 50 ml 12/23/20 11:11 Dextrose 50% In Water (25gm) 50 Ml Syringe IV Q30MIN PRN Hypoglycemia Protocol Folic Acid 1 mg 12/24/20 10:00 12/28/20 10:20 Folic Acid 1 Mg Tab PO 1 mg QDAY AGUS Administration Hydralazine HCl 50 mg 12/26/20 06:17 12/29/20 05:32 Hydralazine 25 Mg Tab PO 50 mg Q8HR AGUS Administration Hydromorphone HCl 0.25 mg 12/22/20 19:29 12/24/20 03:40 Hydromorphone 1 Mg/1 Ml Inj IV 0.25 mg Q4H PRN Administration Pain, Moderate (4-6) Insulin Human Regular 0 units 12/25/20 16:30 12/29/20 00:38 Insulin Regular, Human 100 Units/1 Ml SUB-Q 1 units ACHS AGUS Administration Protocol Isosorbide Dinitrate 20 mg 12/23/20 20:00 12/28/20 20:18 Isosorbide Dinitrate 20 Mg Tab PO 20 mg TID AGUS Administration Ondansetron HCl 4 mg 12/22/20 19:29 12/23/20 16:45 Ondansetron 4 Mg/2 Ml Inj IV 4 mg Q8H PRN Administration Nausea And Vomiting Sodium Bicarbonate 650 mg 12/25/20 20:00 12/28/20 20:16 Sodium Bicarbonate 650 Mg Tab PO 650 mg TID AGUS Administration Sodium Chloride 10 ml 12/22/20 22:00 12/28/20 22:22 Sodium Chloride 0.9% 10 Ml Flush Syringe IV 10 ml BID AGUS Administration Sodium Chloride 10 ml 12/22/20 19:29 Sodium Chloride 0.9% 10 Ml Flush Syringe IV PRN PRN LINE FLUSH Zinc Sulfate 220 mg 12/24/20 22:00 12/28/20 22:22 Zinc Sulfate 220 Mg Cap PO 220 mg BID AGUS Administration
[2020-12-29] MEDS: ISOSORBIDE DINITRATE 20 MG TAB PO SCH ×3 (08:44→21:07)
[2020-12-29] MEDS: allopurinoL 100 MG TAB PO SCH (09:20)
[2020-12-29] MEDS: APIXABAN 2.5 MG TAB PO SCH ×2 (09:20→22:33)
[2020-12-29] MEDS: ASCORBIC ACID 500 MG TAB PO SCH ×2 (09:20→22:32)
[2020-12-29] MEDS: ZINC SULFATE 220 MG CAP PO SCH ×2 (09:20→22:33)
[2020-12-29] MEDS: CHOLECALCIFEROL (VIT D3) 5,000 UNIT TAB PO SCH (09:20)
[2020-12-29] MEDS: FOLIC ACID 1 MG TAB PO SCH (09:20)
[2020-12-29] MEDS: carvediloL 6.25 MG TAB PO SCH ×2 (09:21→22:32)
[2020-12-29] MEDS: ASPIRIN 81 MG TAB CHEW PO SCH (09:21)
--- NOTE | 2020-12-29 10:29 | Progress Note ---
Assessment and Plan 1. Acute kidney injury: Vasomotor MARY superimposed on CKD. Low FeNa. Renal US ordered, pending. Monitor renal function. Creatinine level is improving. Encouraged PO fluids. Avoid nephrotoxic agents. Meds dosage based on GFR. 2. FEN: Metabolic acidosis, on Sod bicarb, monitor. Hyponatremia, Sod bicarb, monitor. Monitor lytes. 3. Acute respiratory failure: CXR showed right lung base opacity. Patient positive for COVID-19 test. Was on BIPAP. Decadron. 4. Sepsis: 2/2 PNA. Continue Abx and follow culture results. 5. 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 6. Toxic metabolic encephalopathy: Improved. 7. Anemia, POA: Monitor. 8. DM type 2: Monitor blood glucose. 9. Hypertension: Monitor. Subjective: Patient was seen and examined at the bedside. Doing ok. Examination: General appearance: well-developed, appears stated age, obese, on RA HEENT: ATNC, Pupils equal Neck: Trachea midline Respiratory: ctab Cardiology: regular, S1S2, no murmur Gastrointestinal: normoactive bowel sounds, no tenderness, not distended, obese Integumentary: warm and dry, scattered eczema, LE chronic changes Neurologic: alert, conversing, able to move extremities Ext: no edema Subjective Date of service: 12/29/20 Objective - Vital Signs Vital signs: Vital Signs - 12hr 12/29/20 12/29/20 12/29/20 04:29 05:32 08:44 Temperature 98.1 F Pulse Rate 70 70 70 Respiratory 20 Rate Blood Pressure 156/83 156/83 156/83 O2 Sat by Pulse 100 Oximetry 12/29/20 09:21 Temperature Pulse Rate 70 Respiratory Rate Blood Pressure 156/83 O2 Sat by Pulse Oximetry - Lab 12/25/20 04:26 12/29/20 04:12 Most recent lab results ABG pH 7.484 (7.320-7.450) H 12/23/20 00:23 Calcium 7.7 mg/dL (8.4-10.2) L 12/29/20 04:12 Urine Creatinine 233.3 mg/dL (0.1-20.0) H 12/22/20 23:18 Urine Sodium 32 mmol/L 12/22/20 23:18 Medications & Allergies - Medications Allergies/Adverse Reactions: Allergies No Known Allergies Allergy (Unverified 01/19/20 19:36) Home Medications: Home Medications Medication Instructions Recorded Confirmed Last Taken Type Aspirin [Aspirin BABY CHEW TAB] 81 mg PO DAILY 12/23/20 12/23/20 Unknown History Folic Acid [Folvite] 1 mg PO QDAY 12/23/20 12/23/20 Unknown History Insulin Glargine [Lantus VIAL] 25 unit SUB-Q QHS 12/23/20 12/23/20 Unknown History Isosorbide Dinitrate [Isordil] 20 mg PO TID 12/23/20 12/23/20 Unknown History Lispro Insulin [HumaLOG] 5 unit SQ TID 12/23/20 12/23/20 Unknown History Torsemide [Demadex] 100 mg PO QDAY 12/23/20 12/23/20 Unknown History allopurinoL [Zyloprim] 100 mg PO QDAY 12/23/20 12/23/20 Unknown History carvediloL [Coreg] 6.25 mg PO BID 12/23/20 12/23/20 Unknown History hydrALAZINE [Apresoline] 25 mg PO Q8HR 12/23/20 12/23/20 Unknown History metFORMIN [Glucophage] 500 mg PO BID 12/23/20 12/23/20 Unknown History Active Medications: Generic Name Dose Route Start Last Admin Trade Name Freq PRN Reason Stop Dose Admin Acetaminophen 650 mg 12/22/20 19:29 12/23/20 19:52 Acetaminophen 325 Mg Tab PO 650 mg Q4H PRN Administration Pain MILD(1-3)/Fever >100.5/HARP Albuterol 2 puff 12/26/20 20:37 Albuterol 8.5 Gm Mdi Inhalation IH Q4HRT PRN Shortness Of Breath Allopurinol 100 mg 12/24/20 10:00 12/29/20 09:20 Allopurinol 100 Mg Tab PO 100 mg QDAY AGUS Administration Apixaban 2.5 mg 12/25/20 11:00 12/29/20 09:20 Apixaban 2.5 Mg Tab PO 2.5 mg Q12HR AGUS Administration Protocol Ascorbic Acid 1,000 mg 12/24/20 22:00 12/29/20 09:20 Ascorbic Acid 500 Mg Tab PO 1,000 mg BID AGUS Administration Aspirin 81 mg 12/24/20 10:00 12/29/20 09:21 Aspirin 81 Mg Tab Chew PO 81 mg DAILY AGUS Administration Carvedilol 6.25 mg 12/23/20 22:00 12/29/20 09:21 Carvedilol 6.25 Mg Tab PO 6.25 mg BID AGUS Administration Cholecalciferol 5,000 unit 12/25/20 10:00 12/29/20 09:20 Cholecalciferol (Vit D3) 5,000 Unit Tab PO 5,000 unit DAILY AGUS Administration Dexamethasone 6 mg 12/24/20 18:00 12/28/20 18:00 Dexamethasone 2 Mg Tab PO 01/02/21 18:01 6 mg Q24H AGUS Administration Dextrose 50 ml 12/23/20 11:11 Dextrose 50% In Water (25gm) 50 Ml Syringe IV Q30MIN PRN Hypoglycemia Protocol Folic Acid 1 mg 12/24/20 10:00 12/29/20 09:20 Folic Acid 1 Mg Tab PO 1 mg QDAY AGUS Administration Hydralazine HCl 50 mg 12/26/20 06:17 12/29/20 05:32 Hydralazine 25 Mg Tab PO 50 mg Q8HR AGUS Administration Hydromorphone HCl 0.25 mg 12/22/20 19:29 12/24/20 03:40 Hydromorphone 1 Mg/1 Ml Inj IV 0.25 mg Q4H PRN Administration Pain, Moderate (4-6) Insulin Human Regular 0 units 12/25/20 16:30 12/29/20 08:14 Insulin Regular, Human 100 Units/1 Ml SUB-Q 1 units ACHS AGUS Administration Protocol Isosorbide Dinitrate 20 mg 12/23/20 20:00 12/29/20 08:44 Isosorbide Dinitrate 20 Mg Tab PO 20 mg TID AGUS Administration Ondansetron HCl 4 mg 12/22/20 19:29 12/23/20 16:45 Ondansetron 4 Mg/2 Ml Inj IV 4 mg Q8H PRN Administration Nausea And Vomiting Sodium Bicarbonate 650 mg 12/25/20 20:00 12/29/20 08:16 Sodium Bicarbonate 650 Mg Tab PO 650 mg TID AGUS Administration Sodium Chloride 10 ml 12/22/20 22:00 12/29/20 09:22 Sodium Chloride 0.9% 10 Ml Flush Syringe IV 10 ml BID AGUS Administration Sodium Chloride 10 ml 12/22/20 19:29 Sodium Chloride 0.9% 10 Ml Flush Syringe IV PRN PRN LINE FLUSH Zinc Sulfate 220 mg 12/24/20 22:00 12/29/20 09:20 Zinc Sulfate 220 Mg Cap PO 220 mg BID AGUS Administration
--- NOTE | 2020-12-29 14:47 | Progress Note ---
Assessment and Plan 50 yo male with htn, dm, chf, ckdx, hypoventilation syndrome w/ obesity, oa, gout, who presented initialy w/ 1 day of lethargy and generalized weakness. Noted initially upon admission with sepsis and hospital course revealed covid-19 infection w/ possible pneumonia. Patient is noted to be altered during the hospital course. 1. Metabolic Encephalopath - in the setting of active infectiion. 2. Seizure - pending EEG. 3. Acute Ischemic Embolic Stroke - no evidence on MR Brain. Moi Whittington MD Neurology Subjective Date of service: 12/29/20 Interval history: Asked to re-evaluate patient that was seen last week for AMS. MRI Brain neg ative for acute process. EEG not done. Objective - Vital Sign Vital Signs - 12hr 12/29/20 12/29/20 12/29/20 04:29 05:32 08:44 Temperature 98.1 F Pulse Rate 70 70 70 Respiratory 20 Rate Blood Pressure 156/83 156/83 156/83 O2 Sat by Pulse 100 Oximetry 12/29/20 12/29/20 12/29/20 09:21 11:31 13:13 Temperature 98.4 F Pulse Rate 70 62 62 Respiratory 18 Rate Blood Pressure 156/83 127/59 127/59 O2 Sat by Pulse 99 Oximetry - Laboratory Findings CBC and BMP: 12/25/20 04:26 12/29/20 04:12 Abnormal Lab Findings: Abnormal Labs 12/22/20 12/22/20 12/22/20 18:39 18:39 18:39 WBC 23.4 H RBC 3.10 L Hgb 10.2 L Hct 29.9 L MCV 97 H MCH 33 H RDW 16.7 H Lymph % (Auto) Lymph # (Auto) Foard # (Auto) Seg Neutrophils % Seg Neuts % (Manual) 93.0 H Lymphocytes % (Manual) 4.0 L Seg Neutrophils # Seg Neutrophils # Man 21.8 H Lymphocytes # (Manual) 0.9 L INR 1.15 H APTT 38.8 H D-Dimer ABG pH POC ABG pCO2 POC ABG pO2 ABG Hemoglobin ABG Sodium ABG Chloride Sodium 119 L* Chloride 86.5 L Carbon Dioxide 21 L BUN Creatinine 3.6 H Glucose POC Glucose Lactic Acid Calcium 7.3 L Troponin T 0.035 H Total Protein Albumin LDL Cholesterol Direct 10 L HDL Cholesterol 66 H Arterial Blood Ionized Calcium Urine Creatinine Coronavirus (PCR) 12/22/20 12/22/20 12/23/20 19:36 23:18 00:00 WBC RBC Hgb Hct MCV MCH RDW Lymph % (Auto) Lymph # (Auto) Foard # (Auto) Seg Neutrophils % Seg Neuts % (Manual) Lymphocytes % (Manual) Seg Neutrophils # Seg Neutrophils # Man Lymphocytes # (Manual) INR APTT D-Dimer ABG pH POC ABG pCO2 POC ABG pO2 ABG Hemoglobin ABG Sodium ABG Chloride Sodium Chloride Carbon Dioxide BUN Creatinine Glucose POC Glucose Lactic Acid 3.40 H* 4.70 H* Calcium Troponin T Total Protein Albumin LDL Cholesterol Direct HDL Cholesterol Arterial Blood Ionized Calcium Urine Creatinine 233.3 H Coronavirus (PCR) 12/23/20 12/23/20 12/23/20 00:00 00:23 04:50 WBC 16.5 H RBC 2.61 L Hgb 8.4 L Hct 25.5 L MCV 98 H MCH RDW 16.8 H Lymph % (Auto) Lymph # (Auto) Foard # (Auto) Seg Neutrophils % Seg Neuts % (Manual) 83.0 H Lymphocytes % (Manual) 4.0 L Seg Neutrophils # Seg Neutrophils # Man 13.7 H Lymphocytes # (Manual) 0.7 L INR APTT D-Dimer ABG pH 7.484 H POC ABG pCO2 24.9 L POC ABG pO2 80.9 L ABG Hemoglobin 10.4 L ABG Sodium 123.4 L ABG Chloride 95.0 L Sodium 126 L D Chloride Carbon Dioxide BUN Creatinine Glucose POC Glucose Lactic Acid Calcium Troponin T Total Protein Albumin LDL Cholesterol Direct HDL Cholesterol Arterial Blood Ionized Calcium 3.7 L Urine Creatinine Coronavirus (PCR) 12/23/20 12/23/20 12/23/20 04:50 09:44 12:04 WBC RBC Hgb Hct MCV MCH RDW Lymph % (Auto) Lymph # (Auto) Foard # (Auto) Seg Neutrophils % Seg Neuts % (Manual) Lymphocytes % (Manual) Seg Neutrophils # Seg Neutrophils # Man Lymphocytes # (Manual) INR APTT D-Dimer ABG pH POC ABG pCO2 POC ABG pO2 ABG Hemoglobin ABG Sodium ABG Chloride Sodium 126 L 130 L Chloride 95.6 L Carbon Dioxide 17 L 20 L BUN 26 H 27 H Creatinine 3.1 H 2.5 H Glucose 73 L POC Glucose 61 L Lactic Acid Calcium 6.4 L 6.7 L Troponin T Total Protein 5.9 L Albumin 2.3 L LDL Cholesterol Direct HDL Cholesterol Arterial Blood Ionized Calcium Urine Creatinine Coronavirus (PCR) 12/23/20 12/24/20 12/24/20 21:44 05:34 05:34 WBC 15.3 H RBC 2.34 L Hgb 7.5 L Hct 22.7 L MCV 97 H MCH RDW 16.7 H Lymph % (Auto) 3.8 L Lymph # (Auto) 0.6 L Foard # (Auto) 1.0 H Seg Neutrophils % 88.6 H Seg Neuts % (Manual) Lymphocytes % (Manual) Seg Neutrophils # 13.6 H Seg Neutrophils # Man Lymphocytes # (Manual) INR APTT D-Dimer ABG pH POC ABG pCO2 POC ABG pO2 ABG Hemoglobin ABG Sodium ABG Chloride Sodium 130 L 132 L Chloride Carbon Dioxide 21 L BUN 28 H Creatinine 1.7 H Glucose POC Glucose Lactic Acid Calcium 6.5 L Troponin T Total Protein Albumin LDL Cholesterol Direct HDL Cholesterol Arterial Blood Ionized Calcium Urine Creatinine Coronavirus (PCR) 12/24/20 12/24/20 12/25/20 11:10 16:00 04:26 WBC RBC 2.39 L Hgb 7.9 L Hct 23.3 L MCV 98 H MCH 33 H RDW 17.1 H Lymph % (Auto) Lymph # (Auto) Foard # (Auto) Seg Neutrophils % Seg Neuts % (Manual) 91.0 H Lymphocytes % (Manual) 5.0 L Seg Neutrophils # Seg Neutrophils # Man 9.6 H Lymphocytes # (Manual) 0.5 L INR APTT D-Dimer 1343.49 H ABG pH POC ABG pCO2 POC ABG pO2 ABG Hemoglobin ABG Sodium ABG Chloride Sodium Chloride Carbon Dioxide BUN Creatinine Glucose POC Glucose Lactic Acid Calcium Troponin T Total Protein Albumin LDL Cholesterol Direct HDL Cholesterol Arterial Blood Ionized Calcium Urine Creatinine Coronavirus (PCR) Positive A 12/25/20 12/25/20 12/26/20 04:26 21:54 05:19 WBC RBC Hgb Hct MCV MCH RDW Lymph % (Auto) Lymph # (Auto) Foard # (Auto) Seg Neutrophils % Seg Neuts % (Manual) Lymphocytes % (Manual) Seg Neutrophils # Seg Neutrophils # Man Lymphocytes # (Manual) INR APTT D-Dimer ABG pH POC ABG pCO2 POC ABG pO2 ABG Hemoglobin ABG Sodium ABG Chloride Sodium 131 L 134 L Chloride Carbon Dioxide 18 L BUN 24 H 27 H Creatinine 1.6 H Glucose 135 H 156 H POC Glucose 153 H Lactic Acid Calcium 7.5 L D Troponin T Total Protein Albumin LDL Cholesterol Direct HDL Cholesterol Arterial Blood Ionized Calcium Urine Creatinine Coronavirus (PCR) 12/26/20 12/26/20 12/26/20 08:58 11:44 15:58 WBC RBC Hgb Hct MCV MCH RDW Lymph % (Auto) Lymph # (Auto) Foard # (Auto) Seg Neutrophils % Seg Neuts % (Manual) Lymphocytes % (Manual) Seg Neutrophils # Seg Neutrophils # Man Lymphocytes # (Manual) INR APTT D-Dimer ABG pH POC ABG pCO2 POC ABG pO2 ABG Hemoglobin ABG Sodium ABG Chloride Sodium Chloride Carbon Dioxide BUN Creatinine Glucose POC Glucose 120 H 133 H 120 H Lactic Acid Calcium Troponin T Total Protein Albumin LDL Cholesterol Direct HDL Cholesterol Arterial Blood Ionized Calcium Urine Creatinine Coronavirus (PCR) 12/26/20 12/27/20 12/27/20 22:12 04:56 07:34 WBC RBC Hgb Hct MCV MCH RDW Lymph % (Auto) Lymph # (Auto) Foard # (Auto) Seg Neutrophils % Seg Neuts % (Manual) Lymphocytes % (Manual) Seg Neutrophils # Seg Neutrophils # Man Lymphocytes # (Manual) INR APTT D-Dimer ABG pH POC ABG pCO2 POC ABG pO2 ABG Hemoglobin ABG Sodium ABG Chloride Sodium 135 L Chloride Carbon Dioxide 20 L BUN 37 H Creatinine 1.9 H Glucose 131 H POC Glucose 135 H 116 H Lactic Acid Calcium 8.1 L Troponin T Total Protein Albumin LDL Cholesterol Direct HDL Cholesterol Arterial Blood Ionized Calcium Urine Creatinine Coronavirus (PCR) 12/27/20 12/27/20 12/27/20 11:22 16:02 21:25 WBC RBC Hgb Hct MCV MCH RDW Lymph % (Auto) Lymph # (Auto) Foard # (Auto) Seg Neutrophils % Seg Neuts % (Manual) Lymphocytes % (Manual) Seg Neutrophils # Seg Neutrophils # Man Lymphocytes # (Manual) INR APTT D-Dimer ABG pH POC ABG pCO2 POC ABG pO2 ABG Hemoglobin ABG Sodium ABG Chloride Sodium Chloride Carbon Dioxide BUN Creatinine Glucose POC Glucose 121 H 113 H 172 H Lactic Acid Calcium Troponin T Total Protein Albumin LDL Cholesterol Direct HDL Cholesterol Arterial Blood Ionized Calcium Urine Creatinine Coronavirus (PCR) 12/28/20 12/28/20 12/28/20 04:41 07:20 10:52 WBC RBC Hgb Hct MCV MCH RDW Lymph % (Auto) Lymph # (Auto) Foard # (Auto) Seg Neutrophils % Seg Neuts % (Manual) Lymphocytes % (Manual) Seg Neutrophils # Seg Neutrophils # Man Lymphocytes # (Manual) INR APTT D-Dimer ABG pH POC ABG pCO2 POC ABG pO2 ABG Hemoglobin ABG Sodium ABG Chloride Sodium Chloride Carbon Dioxide BUN 31 H Creatinine 1.5 H Glucose 163 H POC Glucose 145 H 156 H Lactic Acid Calcium 7.9 L Troponin T Total Protein Albumin LDL Cholesterol Direct HDL Cholesterol Arterial Blood Ionized Calcium Urine Creatinine Coronavirus (PCR) 12/28/20 12/28/20 12/29/20 16:05 21:11 04:12 WBC RBC Hgb Hct MCV MCH RDW Lymph % (Auto) Lymph # (Auto) Foard # (Auto) Seg Neutrophils % Seg Neuts % (Manual) Lymphocytes % (Manual) Seg Neutrophils # Seg Neutrophils # Man Lymphocytes # (Manual) INR APTT D-Dimer ABG pH POC ABG pCO2 POC ABG pO2 ABG Hemoglobin ABG Sodium ABG Chloride Sodium Chloride Carbon Dioxide BUN 31 H Creatinine Glucose 165 H POC Glucose 155 H 196 H Lactic Acid Calcium 7.7 L Troponin T Total Protein Albumin LDL Cholesterol Direct HDL Cholesterol Arterial Blood Ionized Calcium Urine Creatinine Coronavirus (PCR) 12/29/20 12/29/20 07:40 11:28 WBC RBC Hgb Hct MCV MCH RDW Lymph % (Auto) Lymph # (Auto) Foard # (Auto) Seg Neutrophils % Seg Neuts % (Manual) Lymphocytes % (Manual) Seg Neutrophils # Seg Neutrophils # Man Lymphocytes # (Manual) INR APTT D-Dimer ABG pH POC ABG pCO2 POC ABG pO2 ABG Hemoglobin ABG Sodium ABG Chloride Sodium Chloride Carbon Dioxide BUN Creatinine Glucose POC Glucose 156 H 132 H Lactic Acid Calcium Troponin T Total Protein Albumin LDL Cholesterol Direct HDL Cholesterol Arterial Blood Ionized Calcium Urine Creatinine Coronavirus (PCR)
--- NOTE | 2020-12-29 15:43 | Progress Note ---
Assessment and Plan Cultures: SARS CoV2 PCR: positive Blood culture: no growth Urine culture: no growth A/P: 50-year-old male with hypertension, diabetes, CKD, obesity, gout was admitted to the hospital with altered mental status: #SIRS/Sepsis, bilateral pneumonia: secondary to COVID-19. ?bacterial component, procal was elevated #Acute hypoxic respiratory failure: Transient, now resolved. #MARY: Resolved. #Acute encephalopathy: improving. Likely metabolic, sodium was 119 on admission. Recs: -Continue short course of steroids. Since hypoxia has resolved, no role for remdesivir at this time -Completed empiric antibiotics -prophylactic anticoagulation based on d-dimer per hospital protocol -trend ferritin, LDH, d-dimer, CRP every 2-3 days for risk stratification and to assess disease progression Joe Cook MD [facility] ([facility] O: [phone] F: [phone] Subjective Date of service: 12/29/20 Interval history: Afebrile, no acute changes. Imaging personally reviewed: Brain MRI: White matter changes with concern for demyelinating disease, mi croangiopathy, vasculitis. Objective - Exam Narrative Exam: Physical exam deferred due to PPE conservation strategy. Please refer to primary team's note. - Constitutional Vitals: Vital Signs Temp Pulse Resp BP Pulse Ox 98.4 F 69 18 123/61 98 12/29/20 11:31 12/29/20 15:41 12/29/20 11:31 12/29/20 15:41 12/29/20 15:38 Temperature -Last 24 Hours Temperature 98.4 F Temperature 98.1 F Temperature 98.3 F Temperature 98.0 F - Labs CBC & Chem 7: 12/25/20 04:26 12/29/20 04:12 Labs: Abnormal lab results 12/28/20 12/28/20 12/29/20 Range/Units 16:05 21:11 04:12 BUN 31 H (9-20) mg/dL Glucose 165 H (75-100) mg/dL POC Glucose 155 H 196 H (70-105) mg/dL Calcium 7.7 L (8.4-10.2) mg/dL 12/29/20 12/29/20 Range/Units 07:40 11:28 BUN (9-20) mg/dL Glucose (75-100) mg/dL POC Glucose 156 H 132 H (70-105) mg/dL Calcium (8.4-10.2) mg/dL
[2020-12-29] MEDS: DEXAMETHASONE 2 MG TAB PO SCH (22:45)
[2020-12-30] MEDS: hydrALAZINE 25 MG TAB PO SCH ×2 (05:24→14:53)
[2020-12-30 07:01] LABS: BUN/Creatinine Ratio 25; Blood Urea Nitrogen 30 mg/dL (9-20); Calcium 7.9 mg/dL (8.4-10.2); Hemolysis Index 0
[2020-12-30 08:12] LABS: HIV-2 Antibody Differentiation SEE SCANNED RESULT
[2020-12-30 08:13] LABS: HIV-1 Antibody Differentiation SEE SCANNED RESULT
--- NOTE | 2020-12-30 08:15 | Discharge Summary ---
Providers - Providers Date of Admission: 12/22/20 19:29 Date of discharge: 12/30/20 Attending physician: TABATHA LYON 12/22/20 19:34 Consult to Physician [CONS] Routine Comment: Consulting Provider: RADHA RUSHING Physician Instructions: Reason For Exam: mary/hyponatremia 12/24/20 15:50 Consult to Physician [CONS] Routine Comment: spoke to dr reynolds/ odilia Consulting Provider: IAN REYNOLDS Physician Instructions: Reason For Exam: positive for covid 12/26/20 11:37 Occupational Therapy Evaluate and Treat [CONS] Routine Comment: Reason For Exam: DEBILITY Physical Therapy Evaluation and Treat [CONS] Routine Comment: Reason For Exam: DEBILITY 12/26/20 11:38 Consult to Physician [CONS] Routine Comment: Consulting Provider: JONATHON WHITTINGTON Physician Instructions: Reason For Exam: AMS Primary care physician: [facility] Hospitalization Reason for admission: resp failure Condition: Fair Hospital course: The patient is a 50-year-old male with hypertension, diabetes, CKD, obesity, gout was admitted to the hospital with altered mental status. Labs revealed agustin kocytosis, MARY and CXR with possible pneumonia. Patient received empiric antibiotics. Also tested positive for COVID-19, hence infectious diseases was consulted. Initially patient was hypoxic requiring supplemental oxygen. The patient was admitted with diagnosis of sepsis, COVID-19 pneumonia, acute hypoxic respiratory failure, toxic metabolic encephalopathy, acute kidney injury secondary to vasomotor nephropathy, hypertension, diabetes mellitus type 2, hyponatremia syndrome and metabolic acidosis Hospital course: 12/23: Ordered for Covid test, continue Rocephin and Zithromax for now mental status significantly improved we will hold acyclovir for now. Will place on gentle hydration, will follow 2D echo. Continue to monitor CBC and BMP. off BiPAP 12/24: COVID-19 test result pending, 2D echo pending. Renal function improved. Sodium level also improving. Continue gentle hydration, continue IV antibiotics. Follow clinically. Patient on 4 L nasal cannula -wean off as david erated. 12/25: Patient on room air today. Transfer to [facility]. Assess for home O2 requirement. Continue empiric antibiotic for total 5 days. Sodium and creatinine significantly improved today. If clinically stable possible DC tomorrow. 12/26: Will obtain Neurology eval, transfer to COVID unit. Renew restriants. Mental status does not appear to be at baseline yet. Patient with debility will also need PT considering lethargy and fall. 12/27/2020; neurology evaluated the patient, and recommend EEG. He also recommend MRI to be done once the patient is stable. Patient evaluated by ID and recommend to continue with short-term steroids, no need for remdesivir. Nephrology is following the patient, creatinine increased overnight. PT evaluated and recommend home health PT. 12/28/2020; MRI and EEG is pending. Evaluated by PT and recommended home health PT. kidney function is improving. Patient is on steroid. Patient can be discharged after MRI 12/29/2020. Acute kidney injury is secondary to vasomotor nephropathy superimposed on CKD. Follow-up renal ultrasound. Creatinine is improved and will continue to monitor functioning. Encourage p.o., avoid nephrotoxic agents. Continue Decadron for COVID-19 pneumonia (right lung base opacity). Continue empiric antibiotics for completion of 5 days given elevated procalcitonin. Abnormal MRIwhite matter findings suggestive of possible demyelinating disease, microangiopathy, vasculitis, etc. We will follow-up with neurology. Physical therapy recommends home health PT Patient noted to no longer be hypoxic and saturations are normal on room air. Patient completed antibiotics and thus will be discharged home. Patient will have further follow-up as an outpatient with neurology for EEG. MRI revealed white matter findings but no focal mass, hemorrhage, hydrocephalus or large territory infarction seen. Neurology with no further recommendations regarding MRI. Therefore, it is felt patient has met maximal hospital benefit and will be discharged home with home health PT per PT recommendations. Dedicated discharge time 35 minutes Disposition: DC-01 TO HOME OR SELFCARE Time spent for discharge: 35 - Discharge Diagnoses (1) COVID-19 Status: Acute (2) Vasomotor nephropathy Status: Acute (3) Acute kidney injury Status: Acute (4) Hyponatremia syndrome Status: Acute (5) Metabolic acidosis Status: Acute (6) Sepsis Status: Acute Qualifiers: Acute renal failure type: with acute tubular necrosis (7) Toxic metabolic encephalopathy Status: Acute Core Measure Documentation - Palliative Care Palliative Care/ Comfort Measures: Not Applicable - Core Measures Any of the following diagnoses?: none Exam - Constitutional Vitals: Temp Pulse Resp BP Pulse Ox 98.7 F 66 20 160/96 95 12/30/20 04:32 12/30/20 05:24 12/30/20 04:32 12/30/20 05:24 12/30/20 04:32 General appearance: Present: no acute distress, well-nourished - EENT Eyes: Present: PERRL ENT: hearing intact, clear oral mucosa - Neck Neck: Present: supple, normal ROM - Respiratory Respiratory effort: normal Respiratory: bilateral: CTA - Cardiovascular Heart Sounds: Present: S1 & S2. Absent: rub, click - Extremities Extremities: pulses symmetrical, No edema Peripheral Pulses: within normal limits - Abdominal General gastrointestinal: Present: soft, non-tender, non-distended, normal bowel sounds Male genitourinary: Present: normal - Integumentary Integumentary: Present: clear, warm, dry - Musculoskeletal Musculoskeletal: gait normal, strength equal bilaterally - Psychiatric Psychiatric: appropriate mood/affect, intact judgment & insight - Neurologic Neurologic: CNII-XII intact, moves all extremities Plan Activity: advance as tolerated Weight Bearing Status: Weight Bear as Tolerated Diet: diabetic Additional Instructions: f/u with Neurology as OP for EEG--Dr. Whittington Follow up with: PRIMARY CARE, [Primary Care Provider] - 3-5 Days LJ URIAS MD [Staff Physician] - 7 Days RADHA RUSHING MD [Staff Physician] - 7 Days JONATHON WHITTINGTON MD [Staff Physician] - 7 Days Prescriptions: hydrALAZINE [Apresoline TAB] 25 mg PO Q8HR #90 carvediloL [Coreg] 6.25 mg PO BID #60 dexAMETHasone [Decadron] 6 mg PO Q24H #7 tablet Torsemide [Demadex] 100 mg PO QDAY #30 Apixaban [Eliquis] 2.5 mg PO Q12HR #60 tablet Folic Acid [Folvite] 1 mg PO QDAY #30 metFORMIN [Glucophage] 500 mg PO BID #60 Lispro Insulin [HumaLOG] 5 unit SQ TID 30 Days units Isosorbide Dinitrate [Isordil] 20 mg PO TID #90 Insulin Glargine [Lantus VIAL] 25 unit SUB-Q QHS 30 Days units Sodium Bicarbonate 650 mg PO TID #90 tablet Ascorbic Acid [Vitamin C] 1,000 mg PO BID #60 tablet Cholecalciferol (Vitamin D3) [Vitamin D3] 5,000 unit PO DAILY #30 tablet Zinc Sulfate 220 mg PO BID #60 capsule allopurinoL [Zyloprim] 100 mg PO QDAY #30
[2020-12-30] MEDS: ISOSORBIDE DINITRATE 20 MG TAB PO SCH ×2 (08:17→14:53)
[2020-12-30] MEDS: SODIUM BICARBONATE 650 MG TAB PO SCH ×2 (08:17→14:53)
[2020-12-30] MEDS: INSULIN REGULAR, HUMAN 100 UNITS/1 ML SUB-Q SCH ×2 (08:18→13:43)
[2020-12-30] MEDS: allopurinoL 100 MG TAB PO SCH (10:56)
[2020-12-30] MEDS: ASPIRIN 81 MG TAB CHEW PO SCH (10:56)
[2020-12-30] MEDS: ASCORBIC ACID 500 MG TAB PO SCH (10:57)
[2020-12-30] MEDS: ZINC SULFATE 220 MG CAP PO SCH (10:57)
[2020-12-30] MEDS: APIXABAN 2.5 MG TAB PO SCH (10:57)
[2020-12-30] MEDS: FOLIC ACID 1 MG TAB PO SCH (10:57)
[2020-12-30] MEDS: CHOLECALCIFEROL (VIT D3) 5,000 UNIT TAB PO SCH (10:57)
--- NOTE | 2020-12-30 12:20 | Progress Note ---
Assessment and Plan Cultures: SARS CoV2 PCR: positive Blood culture: no growth Urine culture: no growth A/P: 50-year-old male with hypertension, diabetes, CKD, obesity, gout was admitted to the hospital with altered mental status: #SIRS/Sepsis, bilateral pneumonia: secondary to COVID-19. ?bacterial component, procal was elevated #Acute hypoxic respiratory failure: Transient, now resolved. #MARY: Resolved. #Acute encephalopathy: improving. Likely metabolic, sodium was 119 on admission. Recs: -Continue short course of steroids. Since hypoxia has resolved, no role for remdesivir at this time -Completed empiric antibiotics -prophylactic anticoagulation based on d-dimer per hospital protocol -trend ferritin, LDH, d-dimer, CRP every 2-3 days for risk stratification and to assess disease progression Joe Cook MD [facility] ([facility] O: [phone] F: [phone] Subjective Date of service: 12/30/20 Interval history: Afebrile, no acute changes present. Objective - Exam Narrative Exam: Physical exam deferred due to PPE conservation strategy. Please refer to primary team's note. - Constitutional Vitals: Vital Signs Temp Pulse Resp BP Pulse Ox 98.7 F 66 20 160/96 95 12/30/20 04:32 12/30/20 08:17 12/30/20 04:32 12/30/20 08:17 12/30/20 04:32 Temperature -Last 24 Hours Temperature 98.7 F Temperature 98.2 F Temperature 97.5 F - Labs CBC & Chem 7: 12/25/20 04:26 12/30/20 04:48 Labs: Abnormal lab results 12/29/20 12/29/20 12/29/20 Range/Units 11:28 15:47 21:43 BUN (9-20) mg/dL Glucose (75-100) mg/dL POC Glucose 132 H 145 H 172 H (70-105) mg/dL Calcium (8.4-10.2) mg/dL 12/30/20 12/30/20 Range/Units 04:48 07:35 BUN 30 H (9-20) mg/dL Glucose 194 H (75-100) mg/dL POC Glucose 162 H (70-105) mg/dL Calcium 7.9 L (8.4-10.2) mg/dL
[2020-12-30 13:18] VITALS: BP 142/84
[2020-12-30] MEDS: carvediloL 6.25 MG TAB PO SCH (14:54)
--- NOTE | 2020-12-30 14:57 | Progress Note ---
Assessment and Plan 1. Acute kidney injury: Vasomotor MARY superimposed on CKD. Low FeNa. Renal US ordered, pending. Monitor renal function. Creatinine level is improving. Encouraged PO fluids. Avoid nephrotoxic agents. Meds dosage based on GFR. 2. FEN: Metabolic acidosis, on Sod bicarb, monitor. Hyponatremia, Sod bicarb, monitor. Monitor lytes. 3. Acute respiratory failure: CXR showed right lung base opacity. Patient positive for COVID-19 test. Was on BIPAP. Decadron. 4. Sepsis: 2/2 PNA. Followed by ID. 5. 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 6. Toxic metabolic encephalopathy: Improved. 7. Anemia, POA: Monitor. 8. DM type 2: Monitor blood glucose. 9. Hypertension: Monitor. F/u in 1-2 weeks. Subjective: Patient was seen and examined at the bedside. Doing ok. Examination: General appearance: well-developed, appears stated age, obese, on RA HEENT: ATNC, Pupils equal Neck: Trachea midline Respiratory: ctab Cardiology: regular, S1S2, no murmur Gastrointestinal: normoactive bowel sounds, no tenderness, not distended, obese Integumentary: warm and dry, scattered eczema, LE chronic changes Neurologic: alert, conversing, able to move extremities Ext: no edema Subjective Date of service: 12/30/20 Objective - Vital Signs Vital signs: Vital Signs - 12hr 12/30/20 12/30/20 12/30/20 04:32 05:24 08:17 Temperature 98.7 F Pulse Rate 66 66 66 Respiratory 20 Rate Blood Pressure 160/96 160/96 160/96 O2 Sat by Pulse 95 Oximetry 12/30/20 12/30/20 11:43 14:53 Temperature Pulse Rate 56 L 56 L Respiratory 18 Rate Blood Pressure 142/84 142/84 O2 Sat by Pulse 100 Oximetry - Lab 12/25/20 04:26 12/30/20 04:48 Most recent lab results ABG pH 7.484 (7.320-7.450) H 12/23/20 00:23 Calcium 7.9 mg/dL (8.4-10.2) L 12/30/20 04:48 Urine Creatinine 233.3 mg/dL (0.1-20.0) H 12/22/20 23:18 Urine Sodium 32 mmol/L 12/22/20 23:18 Medications & Allergies - Medications Allergies/Adverse Reactions: Allergies No Known Allergies Allergy (Unverified 01/19/20 19:36) Home Medications: Home Medications Medication Instructions Recorded Confirmed Last Taken Type Aspirin [Aspirin BABY CHEW TAB] 81 mg PO DAILY 12/23/20 12/23/20 Unknown History Apixaban [Eliquis] 2.5 mg PO Q12HR #60 tablet 12/30/20 Unknown Rx Ascorbic Acid [Vitamin C] 1,000 mg PO BID #60 tablet 12/30/20 Unknown Rx Cholecalciferol (Vitamin D3) 5,000 unit PO DAILY #30 tablet 12/30/20 Unknown Rx [Vitamin D3] Folic Acid [Folvite] 1 mg PO QDAY #30 12/30/20 Unknown Rx Insulin Glargine [Lantus VIAL] 25 unit SUB-Q QHS 30 Days units 12/30/20 Unknown Rx Isosorbide Dinitrate [Isordil] 20 mg PO TID #90 12/30/20 Unknown Rx Lispro Insulin [HumaLOG] 5 unit SQ TID 30 Days units 12/30/20 Unknown Rx Sodium Bicarbonate 650 mg PO TID #90 tablet 12/30/20 Unknown Rx Torsemide [Demadex] 100 mg PO QDAY #30 12/30/20 Unknown Rx Zinc Sulfate 220 mg PO BID #60 capsule 12/30/20 Unknown Rx allopurinoL [Zyloprim] 100 mg PO QDAY #30 12/30/20 Unknown Rx carvediloL [Coreg] 6.25 mg PO BID #60 12/30/20 Unknown Rx dexAMETHasone [Decadron] 6 mg PO Q24H #7 tablet 12/30/20 Unknown Rx hydrALAZINE [Apresoline TAB] 25 mg PO Q8HR #90 12/30/20 Unknown Rx metFORMIN [Glucophage] 500 mg PO BID #60 12/30/20 Unknown Rx Active Medications: Generic Name Dose Route Start Last Admin Trade Name Freq PRN Reason Stop Dose Admin Acetaminophen 650 mg 12/22/20 19:29 12/23/20 19:52 Acetaminophen 325 Mg Tab PO 650 mg Q4H PRN Administration Pain MILD(1-3)/Fever >100.5/HARP Albuterol 2 puff 12/26/20 20:37 Albuterol 8.5 Gm Mdi Inhalation IH Q4HRT PRN Shortness Of Breath Allopurinol 100 mg 12/24/20 10:00 12/30/20 10:56 Allopurinol 100 Mg Tab PO 100 mg QDAY AGUS Administration Apixaban 2.5 mg 12/25/20 11:00 12/30/20 10:57 Apixaban 2.5 Mg Tab PO 2.5 mg Q12HR AGUS Administration Protocol Ascorbic Acid 1,000 mg 12/24/20 22:00 12/30/20 10:57 Ascorbic Acid 500 Mg Tab PO 1,000 mg BID AGUS Administration Aspirin 81 mg 12/24/20 10:00 12/30/20 10:56 Aspirin 81 Mg Tab Chew PO 81 mg DAILY AGUS Administration Carvedilol 6.25 mg 12/23/20 22:00 12/30/20 14:54 Carvedilol 6.25 Mg Tab PO 6.25 mg BID AGUS Administration Cholecalciferol 5,000 unit 12/25/20 10:00 12/30/20 10:57 Cholecalciferol (Vit D3) 5,000 Unit Tab PO 5,000 unit DAILY AGUS Administration Dexamethasone 6 mg 12/24/20 18:00 12/29/20 22:45 Dexamethasone 2 Mg Tab PO 01/02/21 18:01 6 mg Q24H AGUS Administration Dextrose 50 ml 12/23/20 11:11 Dextrose 50% In Water (25gm) 50 Ml Syringe IV Q30MIN PRN Hypoglycemia Protocol Folic Acid 1 mg 12/24/20 10:00 12/30/20 10:57 Folic Acid 1 Mg Tab PO 1 mg QDAY AGUS Administration Hydralazine HCl 50 mg 12/26/20 06:17 12/30/20 14:53 Hydralazine 25 Mg Tab PO 50 mg Q8HR AGUS Administration Hydromorphone HCl 0.25 mg 12/22/20 19:29 12/24/20 03:40 Hydromorphone 1 Mg/1 Ml Inj IV 0.25 mg Q4H PRN Administration Pain, Moderate (4-6) Insulin Human Regular 0 units 12/25/20 16:30 12/30/20 13:43 Insulin Regular, Human 100 Units/1 Ml SUB-Q Not Given ACHS [facility] Protocol Isosorbide Dinitrate 20 mg 12/23/20 20:00 12/30/20 14:53 Isosorbide Dinitrate 20 Mg Tab PO 20 mg TID AGUS Administration Ondansetron HCl 4 mg 12/22/20 19:29 12/23/20 16:45 Ondansetron 4 Mg/2 Ml Inj IV 4 mg Q8H PRN Administration Nausea And Vomiting Sodium Bicarbonate 650 mg 12/25/20 20:00 12/30/20 14:53 Sodium Bicarbonate 650 Mg Tab PO 650 mg TID AGUS Administration Sodium Chloride 10 ml 12/22/20 22:00 12/30/20 10:57 Sodium Chloride 0.9% 10 Ml Flush Syringe IV 10 ml BID AGUS Administration Sodium Chloride 10 ml 12/22/20 19:29 Sodium Chloride 0.9% 10 Ml Flush Syringe IV PRN PRN LINE FLUSH Zinc Sulfate 220 mg 12/24/20 22:00 12/30/20 10:57 Zinc Sulfate 220 Mg Cap PO 220 mg BID AGUS Administration
== END 2020-12-30 16:45 | disposition home health service (06) | DRG 871 ==
LOC: ED 17:58 → IMCU 19:29 → 3A 12-26 15:46 → UNDODISIN 12-26 20:20
PROVIDERS: ADMIT Internal Medicine; ATTEND Hospitalist
PROC: 5A09357 Assistance with Respiratory Ventilation, Less than 24 Consecutive Hours, Continuous Positive Airway Pressure (ICD-10-PCS; principal; 2020-12-23)
PROC: 4A033R1 Measurement of Arterial Saturation, Peripheral, Percutaneous Approach (ICD-10-PCS; 2020-12-23)
DX: A41.89 Other specified sepsis (principal); U07.1 COVID-19; G92 Toxic encephalopathy; N17.0 Acute kidney failure with tubular necrosis; J12.82 Pneumonia due to coronavirus disease 2019; J96.01 Acute respiratory failure with hypoxia; E87.1 Hypo-osmolality and hyponatremia; E87.2 Acidosis; I50.9 Heart failure, unspecified; M19.90 Unspecified osteoarthritis, unspecified site; M10.9 Gout, unspecified; Z79.4 Long term (current) use of insulin; Z79.82 Long term (current) use of aspirin; I13.0 Hypertensive heart and chronic kidney disease with heart failure and stage 1 through stage 4 chronic kidney disease, or unspecified chronic kidney disease; E11.22 Type 2 diabetes mellitus with diabetic chronic kidney disease; N18.9 Chronic kidney disease, unspecified; Z68.37 Body mass index [BMI] 37.0-37.9, adult; D53.9 Nutritional anemia, unspecified; E66.2 Morbid (severe) obesity with alveolar hypoventilation; R79.89 Other specified abnormal findings of blood chemistry; R56.9 Unspecified convulsions
CPT/HCPCS: 36415; 70450; 70551; 71045; 80048; 80053; 80061; 81001; 82140; 82570; 82607; 82747; 82805; 82962; 84145; 84295; 84300; 84484; 85007; 85025; 85379; 85610; 85670; 85730; 86689; 86850; 86900; 86901; 87040; 87086; 93005; 93970; 94640; 94660; 94760; 95819; 96365; 96375; G0378; J0133; J0456; J0696; J1170; J1815; J2405; J7030; J8540; U0003

== ENCOUNTER 2021-01-05 15:13 | Emergency (ER) | payer MEDICAID ==
--- NOTE | 2021-01-05 16:10 | Event Note ---
ED Screening Note ED Screening Note: states he was just recently released from the hospital secondary to a stroke states he has left sided weakness states that he misstepped while walking up the steps hit his head having HARP, neck pain, lower back pain no LOC no vomiting no bowel or bladder incontinence no acute numbness or weakness since the fall no CP or SOB hx DM, HTN, CVA This initial assessment/diagnostic orders/clinical plan/treatment(s) is/are subject to change based on patients health status, clinical progression and re-assessment by fellow clinical providers in the ED. Further treatment and workup at subsequent clinical providers discretion. Patient/guardian urged not to elope from the ED as their condition may be serious if not clinically assessed and managed. Initial orders include: labs, CT head,neck,lumbar
[2021-01-05 16:29] LABS: Basophils % (Auto) 0.1 % (0.0-1.8); Hematocrit 28.9 % (35.5-45.6); Hemoglobin 9.4 gm/dl (11.8-15.2); Lymphocytes # (Auto) 0.8 K/mm3 (1.2-5.4); Lymphocytes % (Auto) 13.5 % (13.4-35.0); Mean Corpuscular HGB Conc 33 % (32-34); Mean Corpuscular Volume 99 fl (84-94); Monocytes # (Auto) 0.4 K/mm3 (0.0-0.8); Monocytes % (Auto) 7.4 % (0.0-7.3); Platelet Count 445 K/mm3 (140-440); Red Blood Count 2.91 M/mm3 (3.65-5.03)
[2021-01-05 16:44] LABS: INR 1.02 (0.87-1.13)
[2021-01-05 16:45] LABS: Partial Thromboplastin Time 28.1 Sec. (24.2-36.6)
[2021-01-05 16:48] LABS: Alanine Aminotransferase 170 units/L (7-56); Albumin 3.5 g/dL (3.9-5); BUN/Creatinine Ratio 20; Blood Urea Nitrogen 24 mg/dL (9-20); Calcium 8.4 mg/dL (8.4-10.2); Hemolysis Index 16
--- NOTE | 2021-01-05 17:12 | Cat Scan Report ---
CT head/brain wo con INDICATION / CLINICAL INFORMATION: 50 years Male; fall, hit head, HARP, neck/low back pain. TECHNIQUE: Routine CT head without contrast. All CT scans at this location are performed using CT dos e reduction for ALARA by means of automated exposure control. COMPARISON: The study is compared to the previous CT of 12/22/2020. FINDINGS: BRAIN / INTRACRANIAL CONTENTS: There is moderate cerebral white matter disease most consistent with m icrovascular angiopathy. There is mild cerebral atrophy. The ventricular system is correspondingly ap propriate in size and configuration. The findings appear to correlate with the earlier CT which was d egraded by motion. There is no clear CT evidence of acute intracranial hemorrhage or significant mass effect. ORBITS: No significant abnormality of visualized orbits. SINUSES / MASTOIDS: There is continued opacification the visualized inferior maxillary sinuses. Howev er, there appears to be interval development of bilateral air-fluid levels. The CT maxillofacial will be dictated separately. CRANIOCERVICAL JUNCTION: No significant abnormality. ADDITIONAL FINDINGS: None. IMPRESSION: 1. There is moderate microvascular angiopathy and mild cerebral atrophy without definitive CT evidenc e of acute intracranial hemorrhage. 2. The maxillofacial CT will be dictated separately. Signer Name: Ricky Florez MD Signed: 01/05/2021 5:07 PM Workstation Name: [id number]
--- NOTE | 2021-01-05 17:17 | Cat Scan Report ---
CT lumbar spine wo con INDICATION: fall, hit head, HARP, neck/low back pain. TECHNIQUE: Axial CT images of the lumbar spine were obtained. Sagittal and coronal reformatted images were produ kary. All CT scans at this location are performed using CT dose reduction for ALARA by means of automa monse exposure control. COMPARISON: None available. FINDINGS: ALIGNMENT: Normal alignment. VERTEBRAE: Osseous structures are intact. No fracture. Vertebral body heights are preserved. SPONDYLOSIS: Multilevel facet arthropathy most pronounced in the right L4-5. No high-grade osseous sp inal canal or foraminal stenosis. SOFT TISSUES: No significant soft tissue abnormality. ADDITIONAL FINDINGS: No significant additional findings. IMPRESSION: 1. No fracture. Signer Name: Abraham Lara MD Signed: 01/05/2021 5:13 PM Workstation Name: [id number]
--- NOTE | 2021-01-05 17:18 | Cat Scan Report ---
CT cervical spine wo con INDICATION / CLINICAL INFORMATION: 50 years Male; fall, hit head, HARP, neck/low back pain. TECHNIQUE: Axial CT images of the cervical spine were obtained. Sagittal and coronal reformatted images were pr oduced. All CT scans at this location are performed using CT dose reduction for ALARA by means of aut omated exposure control. COMPARISON: None available. FINDINGS: POST-SURGICAL CHANGES: None. ALIGNMENT: There is no significant spondylolisthesis involving cervical spine. However, there is mild curvature of the cervical spine, convex toward the left. VERTEBRAE: There are mild focal endplate changes anteriorly at C5-6 and C6-7. There is no CT ends of acute fracture of the cervical spine. INTRAVERTEBRAL DISCS: There is a central line disc bulge at C4-5 which appears to encroach on the carolann tral cord. There is no significant foraminal narrowing. There is a central disc bulge at C5-6 which also appears to encroach on the ventral cord. There is mi ld left foraminal narrowing at. There is no significant bony of stenosis at C6-7. PARASPINAL SOFT TISSUES: No prevertebral soft tissue fluid collections are identified. ADDITIONAL FINDINGS: None. IMPRESSION: 1. There is no CT evidence of acute fracture involving the cervical spine. 2. There are degenerative the changes at C4-5 and C5-6 as detailed above. Signer Name: Ricky Florez MD Signed: 01/05/2021 5:14 PM Workstation Name: [id number]
[2021-01-05] MEDS ORDERED: HYDROcodone/ACETAMINOPHEN 5-325 MG TAB PO ONE (17:27)
[2021-01-05] MEDS ORDERED: ONDANSETRON 4 MG ODT TAB PO ONE (17:27)
--- NOTE | 2021-01-05 17:57 | Emergency Department Report ---
ED General Adult HPI - General Chief complaint: Fall Stated complaint: FALL/HEAD INJURY Time Seen by Provider: 01/05/21 16:08 Source: patient Mode of arrival: Wheelchair Limitations: No Limitations - History of Present Illness Initial comments: Patient presents to the emergency department with a chief complaint of a fall. Patient states he was walking up some steps on outside of his home when he lost his balance falling backwards hitting his head. Patient denies loss of consciousness but complains of a headache, neck pain and lower back pain. -: Sudden Location: head, neck, back Radiation: non-radiation Severity scale (0 -10): 5 Quality: sharp Consistency: constant Improves with: rest Worsens with: movement Associated Symptoms: denies other symptoms Treatments Prior to Arrival: none - Related Data Home Medications Medication Instructions Recorded Confirmed Last Taken Aspirin [Aspirin BABY CHEW TAB] 81 mg PO DAILY 12/23/20 12/23/20 Unknown Previous Rx's Medication Instructions Recorded Last Taken Type Apixaban [Eliquis] 2.5 mg PO Q12HR #60 tablet 12/30/20 Unknown Rx Ascorbic Acid [Vitamin C] 1,000 mg PO BID #60 tablet 12/30/20 Unknown Rx Cholecalciferol (Vitamin D3) 5,000 unit PO DAILY #30 tablet 12/30/20 Unknown Rx [Vitamin D3] Folic Acid [Folvite] 1 mg PO QDAY #30 12/30/20 Unknown Rx Insulin Glargine [Lantus VIAL] 25 unit SUB-Q QHS 30 Days units 12/30/20 Unknown Rx Isosorbide Dinitrate [Isordil] 20 mg PO TID #90 12/30/20 Unknown Rx Lispro Insulin [HumaLOG] 5 unit SQ TID 30 Days units 12/30/20 Unknown Rx Sodium Bicarbonate 650 mg PO TID #90 tablet 12/30/20 Unknown Rx Torsemide [Demadex] 100 mg PO QDAY #30 12/30/20 Unknown Rx Zinc Sulfate 220 mg PO BID #60 capsule 12/30/20 Unknown Rx allopurinoL [Zyloprim] 100 mg PO QDAY #30 12/30/20 Unknown Rx carvediloL [Coreg] 6.25 mg PO BID #60 12/30/20 Unknown Rx dexAMETHasone [Decadron] 6 mg PO Q24H #7 tablet 12/30/20 Unknown Rx hydrALAZINE [Apresoline TAB] 25 mg PO Q8HR #90 12/30/20 Unknown Rx metFORMIN [Glucophage] 500 mg PO BID #60 12/30/20 Unknown Rx Acetaminophen/Codeine [Tylenol 1 tab PO Q6H PRN #15 tab 01/05/21 Unknown Rx /Codeine # 3 tab] Allergies Allergy/AdvReac Type Severity Reaction Status Date / Time No Known Allergies Allergy Unverified 01/19/20 19:36 ED Review of Systems ROS: Stated complaint: FALL/HEAD INJURY Other details as noted in HPI Constitutional: denies: chills, fever Eyes: denies: eye pain, eye discharge, vision change ENT: denies: ear pain, throat pain Respiratory: denies: cough, shortness of breath, wheezing Cardiovascular: denies: chest pain, palpitations Endocrine: no symptoms reported Gastrointestinal: denies: abdominal pain, nausea, diarrhea Genitourinary: denies: urgency, dysuria Musculoskeletal: back pain. denies: joint swelling, arthralgia Skin: denies: rash, lesions Neurological: denies: headache, weakness, paresthesias Psychiatric: denies: anxiety, depression Hematological/Lymphatic: denies: easy bleeding, easy bruising ED Past Medical Hx - Past Medical History Previous Medical History?: Yes Hx Hypertension: Yes Hx Heart Attack/AMI: No Hx Congestive Heart Failure: Yes Hx Diabetes: Yes Hx Pulmonary Embolism: No Hx Renal Disease: Yes Hx Arthritis: Yes Hx Seizures: Yes Hx Kidney Stones: No Hx Asthma: No Hx COPD: No Additional medical history: Gout, renal problems - Surgical History Past Surgical History?: No Hx Coronary Stent: No - Social History Smoking Status: Never Smoker Substance Use Type: None - Medications Home Medications: Home Medications Medication Instructions Recorded Confirmed Last Taken Type Aspirin [Aspirin BABY CHEW TAB] 81 mg PO DAILY 12/23/20 12/23/20 Unknown History Apixaban [Eliquis] 2.5 mg PO Q12HR #60 tablet 12/30/20 Unknown Rx Ascorbic Acid [Vitamin C] 1,000 mg PO BID #60 tablet 12/30/20 Unknown Rx Cholecalciferol (Vitamin D3) 5,000 unit PO DAILY #30 tablet 12/30/20 Unknown Rx [Vitamin D3] Folic Acid [Folvite] 1 mg PO QDAY #30 12/30/20 Unknown Rx Insulin Glargine [Lantus VIAL] 25 unit SUB-Q QHS 30 Days units 12/30/20 Unknown Rx Isosorbide Dinitrate [Isordil] 20 mg PO TID #90 12/30/20 Unknown Rx Lispro Insulin [HumaLOG] 5 unit SQ TID 30 Days units 12/30/20 Unknown Rx Sodium Bicarbonate 650 mg PO TID #90 tablet 12/30/20 Unknown Rx Torsemide [Demadex] 100 mg PO QDAY #30 12/30/20 Unknown Rx Zinc Sulfate 220 mg PO BID #60 capsule 12/30/20 Unknown Rx allopurinoL [Zyloprim] 100 mg PO QDAY #30 12/30/20 Unknown Rx carvediloL [Coreg] 6.25 mg PO BID #60 12/30/20 Unknown Rx dexAMETHasone [Decadron] 6 mg PO Q24H #7 tablet 12/30/20 Unknown Rx hydrALAZINE [Apresoline TAB] 25 mg PO Q8HR #90 12/30/20 Unknown Rx metFORMIN [Glucophage] 500 mg PO BID #60 12/30/20 Unknown Rx Acetaminophen/Codeine [Tylenol 1 tab PO Q6H PRN #15 tab 01/05/21 Unknown Rx /Codeine # 3 tab] ED Physical Exam - General Limitations: No Limitations General appearance: alert, in no apparent distress - Head Head exam: Present: atraumatic, normocephalic - Eye Eye exam: Present: normal appearance, PERRL, EOMI - ENT ENT exam: Present: mucous membranes moist - Neck Neck exam: Present: other (Tender palpation of the midline C-spine) - Respiratory Respiratory exam: Present: normal lung sounds bilaterally. Absent: respiratory distress - Cardiovascular Cardiovascular Exam: Present: regular rate, normal rhythm. Absent: systolic murmur, diastolic murmur, rubs, gallop - GI/Abdominal GI/Abdominal exam: Present: soft, normal bowel sounds - Rectal Rectal exam: Present: deferred - Extremities Exam Extremities exam: Present: normal inspection - Back Exam Back exam: Present: normal inspection - Neurological Exam Neurological exam: Present: alert, oriented X3 - Psychiatric Psychiatric exam: Present: normal affect, normal mood - Skin Skin exam: Present: warm, dry, intact, normal color. Absent: rash ED Course Vital Signs 01/05/21 01/05/21 01/05/21 15:39 17:00 17:02 Temperature 98.2 F Pulse Rate 68 62 62 Respiratory 16 18 Rate Blood Pressure 128/61 147/67 [Right] O2 Sat by Pulse 100 100 Oximetry 01/05/21 17:31 Temperature Pulse Rate 74 Respiratory 18 Rate Blood Pressure 133/71 [Right] O2 Sat by Pulse 100 Oximetry ED Medical Decision Making - Lab Data Result diagrams: 01/05/21 16:14 01/05/21 16:14 Lab Results 01/05/21 01/05/21 01/05/21 Range/Units 16:14 16:14 16:14 WBC 6.0 (4.5-11.0) K/mm3 RBC 2.91 L (3.65-5.03) M/mm3 Hgb 9.4 L (11.8-15.2) gm/dl Hct 28.9 L (35.5-45.6) % MCV 99 H (84-94) fl MCH 32 (28-32) pg MCHC 33 (32-34) % RDW 17.0 H (13.2-15.2) % Plt Count 445 H (140-440) K/mm3 Lymph % (Auto) 13.5 (13.4-35.0) % [place] % (Auto) 7.4 H (0.0-7.3) % Eos % (Auto) 0.0 (0.0-4.3) % Baso % (Auto) 0.1 (0.0-1.8) % Lymph # (Auto) 0.8 L (1.2-5.4) K/mm3 [place] # (Auto) 0.4 (0.0-0.8) K/mm3 Eos # (Auto) 0.0 (0.0-0.4) K/mm3 Baso # (Auto) 0.0 (0.0-0.1) K/mm3 Seg Neutrophils % 79.0 H (40.0-70.0) % Seg Neutrophils # 4.7 (1.8-7.7) K/mm3 PT 13.2 (12.2-14.9) Sec. INR 1.02 (0.87-1.13) APTT 28.1 (24.2-36.6) Sec. Sodium 138 (137-145) mmol/L Potassium 3.9 (3.6-5.0) mmol/L Chloride 101.5 (98-107) mmol/L Carbon Dioxide 27 (22-30) mmol/L Anion Gap 13 mmol/L BUN 24 H (9-20) mg/dL Creatinine 1.2 (0.8-1.3) mg/dL Estimated GFR > 60 ml/min BUN/Creatinine Ratio 20 % Glucose 157 H (75-100) mg/dL Calcium 8.4 (8.4-10.2) mg/dL Total Bilirubin 0.20 (0.1-1.2) mg/dL AST 138 H (5-40) units/L ALT 170 H (7-56) units/L Alkaline Phosphatase 82 (35-129) units/L Total Protein 7.4 (6.3-8.2) g/dL Albumin 3.5 L (3.9-5) g/dL Albumin/Globulin Ratio 0.9 % - Radiology Data Radiology results: report reviewed - Medical Decision Making Discussed results with patient Critical care attestation.: If time is entered above; I have spent that time in minutes in the direct care of this critically ill patient, excluding procedure time. ED Disposition Clinical Impression: Closed head injury, Cervical strain, acute, Lower back pain Disposition: DC-01 TO HOME OR SELFCARE Is pt being admited?: No Does the pt Need Aspirin: No Condition: Stable Instructions: Cervical Sprain, Head Injury, Adult, [id number], Acute Back Pain, Adult Additional Instructions: return if worse Referrals: FRANCOISE DIAZ MD [Staff Physician] - 3-5 Days Time of Disposition: 17:56
[2021-01-05 18:25] VITALS: BP 140/78
== END 2021-01-05 18:25 | disposition home or self-care (01) ==
LOC: ED 15:13
DX: S16.1XXA Strain of muscle, fascia and tendon at neck level, initial encounter (principal); S09.90XA Unspecified injury of head, initial encounter; M54.5 Low back pain; I11.0 Hypertensive heart disease with heart failure; I50.9 Heart failure, unspecified; E11.9 Type 2 diabetes mellitus without complications; R56.9 Unspecified convulsions; M19.91 Primary osteoarthritis, unspecified site; Z79.4 Long term (current) use of insulin; Z79.899 Other long term (current) drug therapy; W19.XXXA Unspecified fall, initial encounter; Y93.89 Activity, other specified; Y92.89 Other specified places as the place of occurrence of the external cause; Y99.8 Other external cause status
CPT/HCPCS: 36415; 70450; 72125; 72131; 80053; 85025; 85610; 85730; Q0162

== ENCOUNTER 2021-06-29 12:59 | Inpatient (IN) | payer MEDICAID ==
--- NOTE | 2021-06-29 14:19 | Emergency Department Report ---
Blank Doc - Documentation Documentation: 51-year-old male that presents with abdominal pain with n/v. 1- This is a initial triage assessment/medical screening only. Full assessment and work-up will be completed once the patient is in proper hospital gown, ED bed and in a private room setting. This initial assessment/diagnostic orders/clinical plan/ treatment(s) is/are subject to change based on pt's health status, clinical progression and re-assessment by fellow clinical providers in the ED. Further treatment and workup at subsequent clinical providers discretion. Patient/guardians urged not to elope from ED as their condition may be serious if not clinically assessed and managed. 2-labs 3-UA
[2021-06-29 14:46] LABS: Basophils % (Auto) 0.2 % (0.0-1.8); Eosinophils # (Auto) 0.1 K/mm3 (0.0-0.4); Hematocrit 30.6 % (35.5-45.6); Hemoglobin 10.5 gm/dl (11.8-15.2); Lymphocytes # (Auto) 1.3 K/mm3 (1.2-5.4); Lymphocytes % (Auto) 18.5 % (13.4-35.0); Mean Corpuscular HGB Conc 34 % (32-34); Mean Corpuscular Volume 96 fl (84-94); Monocytes # (Auto) 0.7 K/mm3 (0.0-0.8); Monocytes % (Auto) 9.5 % (0.0-7.3); Platelet Count 215 K/mm3 (140-440); Red Blood Count 3.19 M/mm3 (3.65-5.03); Red Cell Distribution Width 17.8 % (13.2-15.2)
[2021-06-29 15:00] LABS: Albumin 4.2 g/dL (3.9-5); Calcium 9.5 mg/dL (8.4-10.2)
[2021-06-30] MEDS ORDERED: SODIUM CHLORIDE 0.9% 1000 ML 1,000 ML IV ONE (10:12)
[2021-06-30] MEDS ORDERED: MORPHINE 4 MG/1 ML INJ IV ONE (10:12)
[2021-06-30] MEDS ORDERED: ONDANSETRON 4 MG/2 ML INJ IV ONE (10:12)
--- NOTE | 2021-06-30 10:17 | Emergency Department Report ---
ED Abdominal Pain HPI - General Chief Complaint: Abdominal Pain Stated Complaint: FLANK PAIN Time Seen by Provider: 06/29/21 13:54 Source: patient Mode of arrival: Ambulatory Limitations: No Limitations - History of Present Illness Initial Comments: Patient is 51 years old male with history of hypertension, diabetes and congestive heart failure. Patient presented to the ER complaining of 3-day history of epigastric abdominal pain, sharp in nature with radiation to the back. Patient stated that his pain associated with nausea and vomiting. Patient denied any fever or chills. Patient denied any recent history of alcohol drinking. He also denied any abdominal surgery before. MD Complaint: abdominal pain -: Gradual, days(s) Location: RUQ, epigastric Radiation: none Migration to: no migration Severity: moderate Quality: sharp Associated Symptoms: nausea, vomiting - Related Data Home Medications Medication Instructions Recorded Confirmed Last Taken Aspirin [Aspirin BABY CHEW TAB] 81 mg PO DAILY 12/23/20 12/23/20 Unknown Previous Rx's Medication Instructions Recorded Last Taken Type Apixaban [Eliquis] 2.5 mg PO Q12HR #60 tablet 12/30/20 Unknown Rx Ascorbic Acid [Vitamin C] 1,000 mg PO BID #60 tablet 12/30/20 Unknown Rx Cholecalciferol (Vitamin D3) 5,000 unit PO DAILY #30 tablet 12/30/20 Unknown Rx [Vitamin D3] Folic Acid [Folvite] 1 mg PO QDAY #30 12/30/20 Unknown Rx Insulin Glargine [Lantus VIAL] 25 unit SUB-Q QHS 30 Days units 12/30/20 Unknown Rx Isosorbide Dinitrate [Isordil] 20 mg PO TID #90 12/30/20 Unknown Rx Lispro Insulin [HumaLOG] 5 unit SQ TID 30 Days units 12/30/20 Unknown Rx Sodium Bicarbonate 650 mg PO TID #90 tablet 12/30/20 Unknown Rx Torsemide [Demadex] 100 mg PO QDAY #30 12/30/20 Unknown Rx Zinc Sulfate 220 mg PO BID #60 capsule 12/30/20 Unknown Rx allopurinoL [Zyloprim] 100 mg PO QDAY #30 12/30/20 Unknown Rx carvediloL [Coreg] 6.25 mg PO BID #60 12/30/20 Unknown Rx dexAMETHasone [Decadron] 6 mg PO Q24H #7 tablet 12/30/20 Unknown Rx hydrALAZINE [Apresoline TAB] 25 mg PO Q8HR #90 12/30/20 Unknown Rx metFORMIN [Glucophage] 500 mg PO BID #60 12/30/20 Unknown Rx Acetaminophen/Codeine [Tylenol 1 tab PO Q6H PRN #15 tab 01/05/21 Unknown Rx /Codeine # 3 tab] Allergies Allergy/AdvReac Type Severity Reaction Status Date / Time No Known Allergies Allergy Unverified 01/19/20 19:36 ED Review of Systems ROS: Stated complaint: FLANK PAIN Other details as noted in HPI Comment: All other systems reviewed and negative Constitutional: denies: chills, fever Respiratory: denies: cough, shortness of breath, SOB with exertion, SOB at rest Cardiovascular: denies: chest pain, palpitations Gastrointestinal: abdominal pain, nausea, vomiting. denies: diarrhea, constipation, hematemesis, melena, hematochezia Musculoskeletal: denies: back pain Neurological: denies: headache, weakness, numbness, paresthesias, confusion, abnormal gait Psychiatric: denies: suicidal thoughts ED Past Medical Hx - Past Medical History Previous Medical History?: Yes Hx Hypertension: Yes Hx Heart Attack/AMI: No Hx Congestive Heart Failure: Yes Hx Diabetes: Yes Hx Pulmonary Embolism: No Hx Renal Disease: Yes Hx Arthritis: Yes Hx Seizures: Yes Hx Kidney Stones: No Hx Asthma: No Hx COPD: No Additional medical history: Gout, renal problems - Surgical History Past Surgical History?: No Hx Coronary Stent: No - Social History Smoking Status: Never Smoker Substance Use Type: None - Medications Home Medications: Home Medications Medication Instructions Recorded Confirmed Last Taken Type Aspirin [Aspirin BABY CHEW TAB] 81 mg PO DAILY 12/23/20 12/23/20 Unknown History Apixaban [Eliquis] 2.5 mg PO Q12HR #60 tablet 12/30/20 Unknown Rx Ascorbic Acid [Vitamin C] 1,000 mg PO BID #60 tablet 12/30/20 Unknown Rx Cholecalciferol (Vitamin D3) 5,000 unit PO DAILY #30 tablet 12/30/20 Unknown Rx [Vitamin D3] Folic Acid [Folvite] 1 mg PO QDAY #30 12/30/20 Unknown Rx Insulin Glargine [Lantus VIAL] 25 unit SUB-Q QHS 30 Days units 12/30/20 Unknown Rx Isosorbide Dinitrate [Isordil] 20 mg PO TID #90 12/30/20 Unknown Rx Lispro Insulin [HumaLOG] 5 unit SQ TID 30 Days units 12/30/20 Unknown Rx Sodium Bicarbonate 650 mg PO TID #90 tablet 12/30/20 Unknown Rx Torsemide [Demadex] 100 mg PO QDAY #30 12/30/20 Unknown Rx Zinc Sulfate 220 mg PO BID #60 capsule 12/30/20 Unknown Rx allopurinoL [Zyloprim] 100 mg PO QDAY #30 12/30/20 Unknown Rx carvediloL [Coreg] 6.25 mg PO BID #60 12/30/20 Unknown Rx dexAMETHasone [Decadron] 6 mg PO Q24H #7 tablet 12/30/20 Unknown Rx hydrALAZINE [Apresoline TAB] 25 mg PO Q8HR #90 12/30/20 Unknown Rx metFORMIN [Glucophage] 500 mg PO BID #60 12/30/20 Unknown Rx Acetaminophen/Codeine [Tylenol 1 tab PO Q6H PRN #15 tab 01/05/21 Unknown Rx /Codeine # 3 tab] ED Physical Exam - General Limitations: No Limitations General appearance: alert, in no apparent distress - Head Head exam: Present: atraumatic, normocephalic, normal inspection - Eye Eye exam: Present: normal appearance, PERRL - ENT ENT exam: Present: mucous membranes dry - Neck Neck exam: Present: normal inspection, full ROM. Absent: tenderness, meningismus - Respiratory Respiratory exam: Present: normal lung sounds bilaterally - Cardiovascular Cardiovascular Exam: Present: regular rate, normal rhythm, normal heart sounds - GI/Abdominal GI/Abdominal exam: Present: soft, tenderness, normal bowel sounds. Absent: distended, guarding, rebound, rigid, organomegaly, mass, bruit, pulsatile mass, hernia - Extremities Exam Extremities exam: Present: normal inspection, full ROM, normal capillary refill. Absent: tenderness, pedal edema, joint swelling, calf tenderness - Back Exam Back exam: Present: normal inspection, full ROM. Absent: CVA tenderness (R), CVA tenderness (L) - Neurological Exam Neurological exam: Present: alert, oriented X3, CN II-XII intact, normal gait, reflexes normal. Absent: motor sensory deficit - Psychiatric Psychiatric exam: Present: normal mood - Skin Skin exam: Present: warm, dry, intact, normal color ED Course Vital Signs 06/29/21 06/30/21 06/30/21 13:49 10:00 10:15 Temperature 98.1 F Pulse Rate 63 62 64 Respiratory 18 23 17 Rate Blood Pressure 144/52 146/80 146/80 O2 Sat by Pulse 100 100 100 Oximetry 06/30/21 10:29 Temperature Pulse Rate Respiratory Rate Blood Pressure O2 Sat by Pulse 100 Oximetry ED Medical Decision Making - Lab Data Result diagrams: 06/29/21 14:16 06/29/21 14:16 - Radiology Data Radiology results: report reviewed - Medical Decision Making Patient is 51 years old male with history of hypertension, diabetes and congestive heart failure. Patient presented to the ER complaining of 3-day history of epigastric abdominal pain, sharp in nature with radiation to the back. Patient stated that his pain associated with nausea and vomiting. Patient denied any fever or chills. Patient denied any recent history of alcohol drinking. He also denied any abdominal surgery before. Patient received normal saline, morphine and Zofran. Labs reviewed and showed elevated lipase of 113. Patient creatinine is 2.7 increased from his baseline of 1.2. This acute renal failure is most likely secondary to excessive vomiting. CT abdomen pelvis is unremarkable except for gallbladder stone however there is no evidence of acute cholecystitis or dilatation of bile duct. I discussed the patient with Dr. Mendes, he agreed to admit the patient to medical service for further management. Critical Care Time: Yes Critical care time in (mins) excluding proc time.: 30 Critical care attestation.: If time is entered above; I have spent that time in minutes in the direct care of this critically ill patient, excluding procedure time. ED Disposition Clinical Impression: Acute renal failure, Acute abdominal pain, Acute pancreatitis Disposition: ADMITTED INPATIENT Is pt being admited?: Yes Condition: Stable Referrals: [facility] [Other] - 3-5 Days
--- NOTE | 2021-06-30 11:13 | Cat Scan Report ---
CT ABDOMEN AND PELVIS WITHOUT CONTRAST HISTORY: GENERALIZED ABDOMINAL PAIN, PT CANNOT SPECIFY WHERE THE PAIN IS. COMPARISON: 01/20/2020 TECHNIQUE: Axial CT images were obtained through the abdomen and pelvis without IV contrast. Sagittal and coronal reformatted images. All CT scans at this location are performed using CT dose reduction for ALARA by means of automated exposure control. FINDINGS: CT ABDOMEN: Lung Bases: Clear. Liver: No significant abnormality. Biliary: There are a few tiny gallstones in the gallbladder. No abnormal dilatation or inflammation. Spleen: No significant abnormality. Unenlarged. Pancreas: No significant abnormality. Adrenals: 3.4 cm fat-containing right adrenal lesion is unchanged. Normal left adrenal gland. Kidneys: No significant abnormality. Lymphatics: No lymphadenopathy. Vasculature: No significant abnormality. Bowel/Peritoneum: No significant abnormality. No free air. No free fluid. Normal appendix. CT PELVIS: : No significant abnormality. Osseous Structures: Mild thoracolumbar spondylosis. Additional Findings: Mild bilateral gynecomastia IMPRESSION: No acute process is appreciated in the abdomen or pelvis. No overwhelming change since 01/20/2020 exam. 3.4 cm fat-containing right adrenal lesion remains consistent with a myelolipoma. Cholelithiasis. No evidence for acute cholecystitis. Signer Name: Messi Olsen Jr, MD Signed: 06/30/2021 11:09 AM Workstation Name: [id number]
--- NOTE | 2021-06-30 12:16 | History and Physical Report ---
History of Present Illness Chief complaint: My stomach hurts History of present illness: 51 YO Male with Obesity Hypoventilation Syndrome, HTN, DM, CKD, OA, Gout, CHF presents to ED for evaluation. Patient reported "my stomach hurts". Patient states that he has experienced abdominal pain over the past 3 days with pe rsistently worsening symptoms over the same timeframe. Patient states that pain is 5/10, constant, localized to the epigastric area, radiates to the back, associated with nausea, associated with multiple episodes of vomiting.patient transported to [facility] via private vehicle for further care and evaluation of the aforementioned symptoms. The patient was seen and evaluated in the emergency department. All lab and imaging studies reviewed. The patient was found to have MARY with ATN, acute pancreatitis, as well as hyperkalemia. Patient admitted to medical floor due to increased risk of worsening symptoms. Patient treated with bowel rest and IV fluid resuscitation therapy. Prior admission on 12/22/2020 reviewed. All medication listed at time of admission has been reconciled. Past History Past Medical History: arthritis, diabetes, heart failure, hypertension, renal failure, other (See HPI) Past Surgical History: No surgical history, Other (Reviewed) Social history: single. denies: smoking, alcohol abuse, prescription drug abuse Family history: diabetes, hypertension Medications and Allergies Allergies Allergy/AdvReac Type Severity Reaction Status Date / Time No Known Allergies Allergy Unverified 01/19/20 19:36 Home Medications Medication Instructions Recorded Confirmed Last Taken Type Aspirin [Aspirin BABY CHEW TAB] 81 mg PO DAILY 12/23/20 12/23/20 Unknown History Apixaban [Eliquis] 2.5 mg PO Q12HR #60 tablet 12/30/20 Unknown Rx Ascorbic Acid [Vitamin C] 1,000 mg PO BID #60 tablet 12/30/20 Unknown Rx Cholecalciferol (Vitamin D3) 5,000 unit PO DAILY #30 tablet 12/30/20 Unknown Rx [Vitamin D3] Folic Acid [Folvite] 1 mg PO QDAY #30 12/30/20 Unknown Rx Insulin Glargine [Lantus VIAL] 25 unit SUB-Q QHS 30 Days units 12/30/20 Unknown Rx Isosorbide Dinitrate [Isordil] 20 mg PO TID #90 12/30/20 Unknown Rx Lispro Insulin [HumaLOG] 5 unit SQ TID 30 Days units 12/30/20 Unknown Rx Sodium Bicarbonate 650 mg PO TID #90 tablet 12/30/20 Unknown Rx Torsemide [Demadex] 100 mg PO QDAY #30 12/30/20 Unknown Rx Zinc Sulfate 220 mg PO BID #60 capsule 12/30/20 Unknown Rx allopurinoL [Zyloprim] 100 mg PO QDAY #30 12/30/20 Unknown Rx carvediloL [Coreg] 6.25 mg PO BID #60 12/30/20 Unknown Rx dexAMETHasone [Decadron] 6 mg PO Q24H #7 tablet 12/30/20 Unknown Rx hydrALAZINE [Apresoline TAB] 25 mg PO Q8HR #90 12/30/20 Unknown Rx metFORMIN [Glucophage] 500 mg PO BID #60 12/30/20 Unknown Rx Acetaminophen/Codeine [Tylenol 1 tab PO Q6H PRN #15 tab 01/05/21 Unknown Rx /Codeine # 3 tab] Review of Systems Constitutional: no weight loss, no weight gain, no fever, no chills Ears, nose, mouth and throat: no ear discharge, no decreased hearing, no nasal discharge Cardiovascular: no chest pain, no orthopnea, no rapid/irregular heart beat Respiratory: no cough, no excessive sputum, no shortness of breath Gastrointestinal: abdominal pain, nausea, vomiting, no constipation, no melena, no hematochezia, no early satiety Genitourinary Male: no dysuria, no hematuria, no flank pain, no discharge, no urinary frequency, no nocturia Rectal: no pain, no incontinence, no bleeding Musculoskeletal: no neck stiffness, no neck pain, no arm numbness/tingling, no leg numbness/tingling, no redness of joints Integumentary: no rash, no pruritis, no sores, no jaundice Neurological: no head injury, no transient paralysis, no paralysis, no parathesias, no numbness, no tingling, no syncope, no tremors Psychiatric: no anxiety, no memory loss, no insomnia, no change in appetite, no suicidal ideation, no hallucinations Endocrine: no cold intolerance, no heat intolerance, no polydipsia, no polyuria, no nocturia Hematologic/Lymphatic: no easy bruising, no lymphadenopathy Allergic/Immunologic: no urticaria, no persistent infections, no anaphylaxis Exam - Constitutional Vitals: Temp Pulse Resp BP Pulse Ox 98.1 F 64 17 146/80 100 06/29/21 13:49 06/30/21 10:15 06/30/21 10:15 06/30/21 10:15 06/30/21 10:29 General appearance: Present: mild distress, obese - EENT Eyes: Present: PERRL ENT: hearing intact, clear oral mucosa - Neck Neck: Present: supple, normal ROM - Respiratory Respiratory effort: normal Respiratory: bilateral: CTA - Cardiovascular Heart Sounds: Present: S1 & S2. Absent: rub, click - Extremities Extremities: pulses symmetrical, No edema Peripheral Pulses: within normal limits - Abdominal General gastrointestinal: Present: soft, tender, non-distended, normal bowel sounds Male genitourinary: Present: normal - Integumentary Integumentary: Present: clear, warm, dry - Musculoskeletal Musculoskeletal: gait normal, strength equal bilaterally - Psychiatric Psychiatric: appropriate mood/affect, intact judgment & insight - Neurologic Neurologic: CNII-XII intact, moves all extremities Results - Labs CBC & Chem 7: 06/29/21 14:16 06/29/21 14:16 Labs: Abnormal lab results 06/29/21 06/29/21 Range/Units 14:16 14:16 RBC 3.19 L (3.65-5.03) M/mm3 Hgb 10.5 L (11.8-15.2) gm/dl Hct 30.6 L (35.5-45.6) % MCV 96 H (84-94) fl MCH 33 H (28-32) pg RDW 17.8 H (13.2-15.2) % [place] % (Auto) 9.5 H (0.0-7.3) % Sodium 134 L (137-145) mmol/L Potassium 5.4 H (3.6-5.0) mmol/L BUN 65 H (9-20) mg/dL Creatinine 2.7 H (0.8-1.3) mg/dL Glucose 126 H (75-100) mg/dL AST 51 H (5-40) units/L ALT 89 H (7-56) units/L Lipase 131 H (13-60) units/L Assessment and Plan - Patient Problems (1) Acute pancreatitis Current Visit: Yes Status: Acute Plan to address problem: CT scan abdomen pelvis, lipase level, bowel rest, IV fluid resuscitation ther apy, pain control, serial abdominal exam. (2) Hyperkalemia Current Visit: Yes Status: Acute Plan to address problem: IV fluid resuscitation therapy, BMP, repeat BMP in a.m., no EKG changes. (3) Obesity hypoventilation syndrome Current Visit: Yes Status: Acute Plan to address problem: Balanced diet, increase physical activity discharge, outpatient pulmonary follow-up for sleep study. (4) Acute kidney injury Current Visit: No Status: Acute Plan to address problem: IV fluid resuscitation therapy, BMP, repeat BMP in a.m., monitor fluid balance, (5) Hyperkalemia Current Visit: Yes Status: Acute (6) Diabetes Current Visit: Yes Status: Acute Plan to address problem: Consistent carbohydrate diet, Accu-Chek, insulin protocol, hypoglycemia protoco l. (7) CHF (congestive heart failure) Current Visit: Yes Status: Acute Qualifiers: Heart failure chronicity: chronic Plan to address problem: Balanced diet, fluid restriction, monitor urine output every shift, blood pressure control, diuresis, supplemental oxygen. (8) DVT prophylaxis Current Visit: No Status: Acute Plan to address problem: SCDs bilateral lower extremities while in bed, patient is ambulatory.
[2021-06-30] MEDS ORDERED: ALBUTEROL 2.5 MG/3 ML NEBU IH PRN (12:18)
[2021-06-30] MEDS ORDERED: ACETAMINOPHEN 325 MG TAB PO PRN (12:18)
[2021-06-30] MEDS ORDERED: ONDANSETRON 4 MG/2 ML INJ IV PRN (12:18)
[2021-06-30 12:28] LABS: Bilirubin,Urine NEG (Negative); Blood,Urine NEG (Negative); Color,Urine Yellow (Yellow); Hyaline Casts,Urine 3 /LPF; Mucus,Urine FEW /HPF; Protein,Urine <15 mg/dL mg/dL (Negative); Urobilinogen,Urine < 2.0 mg/dL (<2.0); WBC,Urine < 1.0 /HPF (0.0-6.0)
[2021-06-30 12:46] LABS: RBC,Urine < 1.0 /HPF (0.0-6.0)
--- NOTE | 2021-06-30 12:51 | Ultrasound Report ---
LIMITED RUQ ABDOMINAL ULTRASOUND INDICATION: Right upper quadrant pain and tenderness. COMPARISON: CT done earlier today. FINDINGS: Pancreas: Visualized portions show no significant abnormality. Abdominal Aorta: No significant abnormality. IVC: No significant abnormality. Liver: No significant abnormality. Normal hepatopedal blood flow in the main portal vein. Gallbladder: Multiple stones in the gallbladder without wall thickening or distention. Bile ducts: No significant abnormality. Common bile duct measures 3 mm. Right kidney: No significant abnormality visualized.. Free fluid: None. Additional Findings: Right adrenal myelolipoma measuring 4 cm is seen.. IMPRESSION: 1. Cholelithiasis without evidence of acute cholecystitis. 2. Right adrenal myelolipoma again noted.. Signer Name: Jamie Puentes MD Signed: 06/30/2021 12:47 PM Workstation Name: [id number]
[2021-06-30] MEDS: hydrALAZINE 25 MG TAB PO SCH ×2 (14:05→21:20)
[2021-06-30] MEDS: ISOSORBIDE DINITRATE 20 MG TAB PO SCH ×2 (14:06→21:24)
[2021-06-30] MEDS: SODIUM BICARBONATE 650 MG TAB PO SCH ×2 (14:07→21:18)
[2021-06-30] MEDS: APIXABAN 2.5 MG TAB PO SCH (21:19)
[2021-06-30] MEDS: ZINC SULFATE 220 MG CAP PO SCH (21:19)
[2021-06-30] MEDS: carvediloL 6.25 MG TAB PO SCH (21:19)
[2021-06-30] MEDS: HYDROmorphone 1 MG/1 ML INJ IV PRN (21:26)
[2021-06-30] MEDS: SODIUM CHLORIDE 0.9% 1000 ML 1,000 ML IV SCH (21:31)
[2021-06-30] MEDS: ASCORBIC ACID 500 MG TAB PO SCH (21:40)
[2021-06-30] MEDS ORDERED: NON-FORMULARY EACH (Apixaban 2.5 MG Tablet) PO SCH (22:00)
[2021-07-01] MEDS: hydrALAZINE 25 MG TAB PO SCH ×3 (08:05→22:14)
[2021-07-01 08:07] LABS: Basophils % (Auto) 0.1 % (0.0-1.8); Eosinophils # (Auto) 0.1 K/mm3 (0.0-0.4); Eosinophils % (Auto) 1.5 % (0.0-4.3); Hematocrit 28.5 % (35.5-45.6); Hemoglobin 9.7 gm/dl (11.8-15.2); Lymphocytes # (Auto) 0.9 K/mm3 (1.2-5.4); Mean Corpuscular HGB Conc 34 % (32-34); Mean Corpuscular Volume 97 fl (84-94); Monocytes # (Auto) 0.8 K/mm3 (0.0-0.8); Monocytes % (Auto) 11.5 % (0.0-7.3); Platelet Count 197 K/mm3 (140-440); Red Blood Count 2.93 M/mm3 (3.65-5.03)
[2021-07-01 08:14] LABS: Albumin 3.6 g/dL (3.9-5); Calcium 8.5 mg/dL (8.4-10.2)
[2021-07-01] MEDS: ISOSORBIDE DINITRATE 20 MG TAB PO SCH ×3 (08:46→22:13)
[2021-07-01] MEDS: SODIUM BICARBONATE 650 MG TAB PO SCH ×3 (08:47→22:26)
[2021-07-01] MEDS: SODIUM CHLORIDE 0.9% 1000 ML 1,000 ML IV SCH ×2 (11:44→23:13)
[2021-07-01] MEDS: FOLIC ACID 1 MG TAB PO SCH (16:03)
[2021-07-01] MEDS: ASCORBIC ACID 500 MG TAB PO SCH ×2 (16:03→22:23)
[2021-07-01] MEDS: carvediloL 6.25 MG TAB PO SCH ×2 (16:03→22:15)
[2021-07-01] MEDS: CHOLECALCIFEROL (VIT D3) 5,000 UNIT TAB PO SCH (16:03)
[2021-07-01] MEDS: ASPIRIN 81 MG TAB CHEW PO SCH (16:04)
[2021-07-01] MEDS: allopurinoL 100 MG TAB PO SCH (16:04)
[2021-07-01] MEDS: APIXABAN 2.5 MG TAB PO SCH ×2 (16:04→22:13)
[2021-07-01] MEDS: TORSEMIDE 100 MG TAB PO SCH (16:04)
[2021-07-01] MEDS: ZINC SULFATE 220 MG CAP PO SCH ×2 (16:06→22:24)
--- NOTE | 2021-07-01 21:21 | Progress Note ---
Assessment and Plan - Patient Problems (1) Acute pancreatitis Current Visit: Yes Status: Acute Plan to address problem: CT scan abdomen pelvis, lipase level, bowel rest, IV fluid resuscitation therapy, pain control, serial abdominal exam. (2) Hyperkalemia Current Visit: Yes Status: Acute Plan to address problem: IV fluid resuscitation therapy, BMP, repeat BMP in a.m., no EKG changes. (3) Obesity hypoventilation syndrome Current Visit: Yes Status: Acute Plan to address problem: Balanced diet, increase physical activity discharge, outpatient pulmonary foll ow-up for sleep study. (4) Acute kidney injury Current Visit: No Status: Acute Plan to address problem: IV fluid resuscitation therapy, BMP, repeat BMP in a.m., monitor fluid balance, (5) Hyperkalemia Current Visit: Yes Status: Acute (6) Diabetes Current Visit: Yes Status: Acute Plan to address problem: Consistent carbohydrate diet, Accu-Chek, insulin protocol, hypoglycemia protocol. (7) CHF (congestive heart failure) Current Visit: Yes Status: Acute Qualifiers: Heart failure chronicity: chronic Plan to address problem: Balanced diet, fluid restriction, monitor urine output every shift, blood pressure control, diuresis, supplemental oxygen. (8) DVT prophylaxis Current Visit: No Status: Acute Plan to address problem: SCDs bilateral lower extremities while in bed, patient is ambulatory. History Interval history: 51-year-old male hospital day 2 with pancreatitis, abdominal pain. Patient states symptoms have improved today. Patient denies fever, chills, chest pain, worsening abdominal pain. No reported nursing events. We will plan to advance patient diet today. Hospitalist Physical - Constitutional Vitals: Temp Pulse Resp BP Pulse Ox 99.0 F 73 18 135/67 100 07/01/21 15:44 07/01/21 15:44 07/01/21 15:44 07/01/21 15:44 07/01/21 15:44 General appearance: Present: mild distress, obese - EENT Eyes: Present: PERRL ENT: hearing intact - Neck Neck: Present: supple - Respiratory Respiratory effort: normal Respiratory: bilateral: CTA - Cardiovascular Rhythm: regular Heart Sounds: Present: S1 & S2 - Extremities Extremities: no ischemia Peripheral Pulses: within normal limits - Abdominal General gastrointestinal: soft, non-tender, non-distended - Integumentary Integumentary: Present: clear, dry - Psychiatric Psychiatric: appropriate mood/affect, cooperative - Neurologic Neurologic: CNII-XII intact Results - Labs CBC & Chem 7: 07/01/21 07:32 07/01/21 07:32 Labs: Laboratory Last Values WBC 7.2 K/mm3 (4.5-11.0) 07/01/21 07:32 RBC 2.93 M/mm3 (3.65-5.03) L 07/01/21 07:32 Hgb 9.7 gm/dl (11.8-15.2) L 07/01/21 07:32 Hct 28.5 % (35.5-45.6) L 07/01/21 07:32 MCV 97 fl (84-94) H 07/01/21 07:32 MCH 33 pg (28-32) H 07/01/21 07:32 MCHC 34 % (32-34) 07/01/21 07:32 RDW 18.0 % (13.2-15.2) H 07/01/21 07:32 Plt Count 197 K/mm3 (140-440) 07/01/21 07:32 Lymph % (Auto) 13.0 % (13.4-35.0) L 07/01/21 07:32 [place] % (Auto) 11.5 % (0.0-7.3) H 07/01/21 07:32 Eos % (Auto) 1.5 % (0.0-4.3) 07/01/21 07:32 Baso % (Auto) 0.1 % (0.0-1.8) 07/01/21 07:32 Lymph # (Auto) 0.9 K/mm3 (1.2-5.4) L 07/01/21 07:32 [place] # (Auto) 0.8 K/mm3 (0.0-0.8) 07/01/21 07:32 Eos # (Auto) 0.1 K/mm3 (0.0-0.4) 07/01/21 07:32 Baso # (Auto) 0.0 K/mm3 (0.0-0.1) 07/01/21 07:32 Seg Neutrophils % 73.9 % (40.0-70.0) H 07/01/21 07:32 Seg Neutrophils # 5.3 K/mm3 (1.8-7.7) 07/01/21 07:32 Sodium 135 mmol/L (137-145) L 07/01/21 07:32 Potassium 5.2 mmol/L (3.6-5.0) H 07/01/21 07:32 Chloride 104.0 mmol/L (98-107) 07/01/21 07:32 Carbon Dioxide 20 mmol/L (22-30) L 07/01/21 07:32 Anion Gap 16 mmol/L 07/01/21 07:32 BUN 44 mg/dL (9-20) H 07/01/21 07:32 Creatinine 1.8 mg/dL (0.8-1.3) H 07/01/21 07:32 Estimated GFR 49 ml/min 07/01/21 07:32 BUN/Creatinine Ratio 24 % 07/01/21 07:32 Glucose 119 mg/dL (75-100) H 07/01/21 07:32 POC Glucose 82 mg/dL (70-105) 07/01/21 20:53 Calcium 8.5 mg/dL (8.4-10.2) 07/01/21 07:32 Total Bilirubin 1.00 mg/dL (0.1-1.2) 07/01/21 07:32 AST 27 units/L (5-40) 07/01/21 07:32 ALT 50 units/L (7-56) 07/01/21 07:32 Alkaline Phosphatase 61 units/L (35-129) 07/01/21 07:32 Total Protein 7.3 g/dL (6.3-8.2) 07/01/21 07:32 Albumin 3.6 g/dL (3.9-5) L 07/01/21 07:32 Albumin/Globulin Ratio 1.0 % 07/01/21 07:32 Lipase 75 units/L (13-60) H 07/01/21 20:39 Urine Color Yellow (Yellow) 06/29/21 10:15 Urine Turbidity Clear (Clear) 06/29/21 10:15 Urine pH 5.0 (5.0-7.0) 06/29/21 10:15 Ur Specific [place] 1.014 (1.003-1.030) 06/29/21 10:15 Urine Protein <15 mg/dl mg/dL (Negative) 06/29/21 10:15 Urine Glucose (UA) Neg mg/dL (Negative) 06/29/21 10:15 Urine Ketones Neg mg/dL (Negative) 06/29/21 10:15 Urine Blood Neg (Negative) 06/29/21 10:15 Urine Nitrite Neg (Negative) 06/29/21 10:15 Urine Bilirubin Neg (Negative) 06/29/21 10:15 Urine Urobilinogen < 2.0 mg/dL (<2.0) 06/29/21 10:15 Ur Leukocyte Esterase Neg (Negative) 06/29/21 10:15 Urine WBC (Auto) < 1.0 /HPF (0.0-6.0) 06/29/21 10:15 Urine RBC (Auto) < 1.0 /HPF (0.0-6.0) 06/29/21 10:15 U Epithel Cells (Auto) < 1.0 /HPF (0-13.0) 06/29/21 10:15 Hyaline Casts 3 /LPF 06/29/21 10:15 Urine Mucus Few /HPF 06/29/21 10:15 [place]/IV: Voiding Method Toilet Active Medications - Current Medications Current Medications: Generic Name Dose Route Start Last Admin Trade Name Freq PRN Reason Stop Dose Admin Acetaminophen 650 mg 06/30/21 12:18 Acetaminophen 325 Mg Tab PO Q4H PRN Pain MILD(1-3)/Fever >100.5/HARP Albuterol 2.5 mg 06/30/21 12:18 Albuterol 2.5 Mg/3 Ml Nebu IH Q4HRT PRN Shortness Of Breath Allopurinol 100 mg 07/01/21 10:00 07/01/21 16:04 Allopurinol 100 Mg Tab PO 100 mg QDAY AGUS Administration Apixaban 2.5 mg 06/30/21 22:00 07/01/21 16:04 Apixaban 2.5 Mg Tab PO 2.5 mg Q12HR AGUS Administration Ascorbic Acid 1,000 mg 06/30/21 22:00 07/01/21 16:03 Ascorbic Acid 500 Mg Tab PO 1,000 mg BID AGUS Administration Aspirin 81 mg 07/01/21 10:00 07/01/21 16:04 Aspirin 81 Mg Tab Chew PO 81 mg DAILY AGUS Administration Carvedilol 6.25 mg 06/30/21 22:00 07/01/21 16:03 Carvedilol 6.25 Mg Tab PO 6.25 mg BID AGUS Administration Cholecalciferol 5,000 unit 07/01/21 10:00 07/01/21 16:03 Cholecalciferol (Vit D3) 5,000 Unit Tab PO 5,000 unit DAILY AGUS Administration Folic Acid 1 mg 07/01/21 10:00 07/01/21 16:03 Folic Acid 1 Mg Tab PO 1 mg QDAY AGUS Administration Hydralazine HCl 25 mg 06/30/21 13:00 07/01/21 16:03 Hydralazine 25 Mg Tab PO 25 mg Q8HR AGUS Administration Hydromorphone HCl 0.5 mg 06/30/21 12:18 06/30/21 21:26 Hydromorphone 1 Mg/1 Ml Inj IV 0.5 mg Q12H PRN Administration Pain , Severe (7-10) Sodium Chloride 1,000 mls @ 125 mls/hr 06/30/21 12:30 07/01/21 11:44 Nacl 0.9% 1000 Ml IV 125 mls/hr DIRECT AGUS Administration Isosorbide Dinitrate 20 mg 06/30/21 14:00 07/01/21 16:03 Isosorbide Dinitrate 20 Mg Tab PO 20 mg TID AGUS Administration Ondansetron HCl 4 mg 06/30/21 12:18 Ondansetron 4 Mg/2 Ml Inj IV Q8H PRN Nausea And Vomiting Oxycodone/Acetaminophen 1 tab 06/30/21 12:18 Oxycodone /Acetaminophen 5-325mg Tab PO Q12H PRN Pain, Moderate (4-6) Sodium Bicarbonate 650 mg 06/30/21 14:00 07/01/21 16:04 Sodium Bicarbonate 650 Mg Tab PO 650 mg TID AGUS Administration Sodium Chloride 10 ml 06/30/21 22:00 06/30/21 21:40 Sodium Chloride 0.9% 10 Ml Flush Syringe IV 10 ml BID AGUS Administration Sodium Chloride 10 ml 06/30/21 12:18 Sodium Chloride 0.9% 10 Ml Flush Syringe IV PRN PRN LINE FLUSH Torsemide 100 mg 07/01/21 10:00 07/01/21 16:04 Torsemide 100 Mg Tab PO 100 mg QDAY AGUS Administration Zinc Sulfate 220 mg 06/30/21 22:00 07/01/21 16:06 Zinc Sulfate 220 Mg Cap PO Not Given BID AGUS
[2021-07-01] MEDS: HYDROmorphone 1 MG/1 ML INJ IV PRN (22:19)
[2021-07-02] MEDS: hydrALAZINE 25 MG TAB PO SCH ×3 (06:05→21:01)
[2021-07-02] MEDS: SODIUM BICARBONATE 650 MG TAB PO SCH ×3 (09:48→20:52)
[2021-07-02] MEDS: ISOSORBIDE DINITRATE 20 MG TAB PO SCH ×3 (09:51→20:52)
[2021-07-02] MEDS: TORSEMIDE 100 MG TAB PO SCH (11:48)
[2021-07-02] MEDS: FOLIC ACID 1 MG TAB PO SCH (11:48)
[2021-07-02] MEDS: ASPIRIN 81 MG TAB CHEW PO SCH (11:49)
[2021-07-02] MEDS: ASCORBIC ACID 500 MG TAB PO SCH ×2 (11:49→21:01)
[2021-07-02] MEDS: CHOLECALCIFEROL (VIT D3) 5,000 UNIT TAB PO SCH (11:49)
[2021-07-02] MEDS: carvediloL 6.25 MG TAB PO SCH ×2 (11:49→21:01)
[2021-07-02] MEDS: allopurinoL 100 MG TAB PO SCH (11:50)
[2021-07-02] MEDS: ZINC SULFATE 220 MG CAP PO SCH ×2 (11:50→22:48)
[2021-07-02] MEDS: APIXABAN 2.5 MG TAB PO SCH ×2 (11:51→21:02)
[2021-07-02] MEDS: oxyCODONE /ACETAMINOPHEN 5-325MG TAB PO PRN (12:53)
[2021-07-02] MEDS: SODIUM CHLORIDE 0.9% 1000 ML 1,000 ML IV SCH ×2 (12:55→22:08)
--- NOTE | 2021-07-03 00:11 | Progress Note ---
Assessment and Plan Assessment and Plan - Patient Problems (1) Acute pancreatitis Current Visit: Yes Status: Acute Plan to address problem: Keep the patient n.p.o. Pain management (2) Hyperkalemia Current Visit: Yes Status: Acute Plan to address problem: Improved (3) Obesity hypoventilation syndrome Current Visit: Yes Status: Acute Plan to address problem: Balanced diet, increase physical activity discharge, outpatient pulmonary follow-up for sleep study. (4) Acute kidney injury Current Visit: No Status: Acute Plan to address problem: IV fluid resuscitation therapy, BMP, repeat BMP in a.m., monitor fluid balance, (5) Hyperkalemia Current Visit: Yes Status: Acute (6) Diabetes Current Visit: Yes Status: Acute Plan to address problem: Consistent carbohydrate diet, Accu-Chek, insulin protocol, hypoglycemia protocol. (7) CHF (congestive heart failure) Current Visit: Yes Status: Acute Qualifiers: Heart failure chronicity: chronic Plan to address problem: Balanced diet, fluid restriction, monitor urine output every shift, blood pressure control, diuresis, supplemental oxygen. (8) DVT prophylaxis Current Visit: No Status: Acute Plan to address problem: SCDs bilateral lower extremities while in bed, patient is ambulatory. Subjective Date of service: 07/02/21 Principal diagnosis: Acute pancreatitis Interval history: 51 YO Male with Obesity Hypoventilation Syndrome, HTN, DM, CKD, OA, Gout, CHF presents to ED for evaluation. Patient reported "my stomach hurts". Patient states that he has experienced abdominal pain over the past 3 days with p ersistently worsening symptoms over the same timeframe. Patient states that pain is 5/10, constant, localized to the epigastric area, radiates to the back, associated with nausea, associated with multiple episodes of vomiting.patient transported to [facility] via private vehicle for further care and evaluation of the aforementioned symptoms. The patient was seen and evaluated in the emergency department. All lab and imaging studies reviewed. The patient was found to have MARY with ATN, acute pancreatitis, as well as hyperkalemia. Patient admitted to medical floor due to increased risk of worsening symptoms. Patient treated with bowel rest and IV fluid resuscitation therapy. Prior admission on 12/22/2020 reviewed. All medication listed at time of admission has been reconciled. 07/02/2021 Patient still in severe pain N.p.o. Objective - Constitutional Vitals: Vital Signs - 12hr 07/02/21 07/02/21 07/02/21 13:00 15:04 20:15 Temperature 97.6 F 97.8 F Pulse Rate 55 L 68 Respiratory 16 18 Rate Blood Pressure 114/54 137/75 O2 Sat by Pulse 98 99 100 Oximetry 07/02/21 07/02/21 07/02/21 20:38 20:52 21:01 Temperature Pulse Rate 68 68 Respiratory Rate Blood Pressure 137/75 137/75 O2 Sat by Pulse 100 Oximetry General appearance: Present: mild distress (Because of pain), well-nourished - EENT Eyes: PERRL, EOM intact ENT: hearing intact, clear oral mucosa Ears: bilateral: normal - Neck Neck: supple, normal ROM - Respiratory Respiratory effort: normal Respiratory: bilateral: CTA - Breasts Breasts: normal - Cardiovascular Rhythm: regular Heart Sounds: Present: S1 & S2. Absent: gallop, rub Extremities: pulses intact, No edema, normal color, Full ROM - Gastrointestinal General gastrointestinal: Present: soft, non-tender, non-distended, normal bowel sounds - Genitourinary Male genitourinary: normal - Integumentary Integumentary: clear, warm, dry - Musculoskeletal Musculoskeletal: 1, strength equal bilaterally - Neurologic Neurologic: moves all extremities - Psychiatric Psychiatric: memory intact, appropriate mood/affect, intact judgment & insight - Labs CBC & Chem 7: 07/01/21 07:32 07/04/21 04:00 Labs: Abnormal lab results 07/02/21 07/02/21 07/02/21 Range/Units 07:25 07:54 20:41 POC Glucose 113 H 117 H (70-105) mg/dL Lipase 107 H (13-60) units/L
[2021-07-03] MEDS: oxyCODONE /ACETAMINOPHEN 5-325MG TAB PO PRN ×2 (00:51→22:02)
[2021-07-03] MEDS: hydrALAZINE 25 MG TAB PO SCH ×3 (05:34→21:01)
[2021-07-03] MEDS: FOLIC ACID 1 MG TAB PO SCH (09:25)
[2021-07-03] MEDS: allopurinoL 100 MG TAB PO SCH (09:25)
[2021-07-03] MEDS: ASPIRIN 81 MG TAB CHEW PO SCH (09:25)
[2021-07-03] MEDS: ASCORBIC ACID 500 MG TAB PO SCH ×2 (09:25→22:03)
[2021-07-03] MEDS: carvediloL 6.25 MG TAB PO SCH ×2 (09:25→21:01)
[2021-07-03] MEDS: ISOSORBIDE DINITRATE 20 MG TAB PO SCH ×3 (09:26→21:00)
[2021-07-03] MEDS: SODIUM BICARBONATE 650 MG TAB PO SCH ×3 (09:26→20:42)
[2021-07-03] MEDS: APIXABAN 2.5 MG TAB PO SCH ×2 (09:26→22:02)
[2021-07-03] MEDS: SODIUM CHLORIDE 0.9% 1000 ML 1,000 ML IV SCH ×2 (09:32→20:42)
[2021-07-03] MEDS: HYDROmorphone 1 MG/1 ML INJ IV PRN (11:09)
[2021-07-03] MEDS: TORSEMIDE 100 MG TAB PO SCH (14:35)
[2021-07-03] MEDS: CHOLECALCIFEROL (VIT D3) 5,000 UNIT TAB PO SCH (14:48)
[2021-07-03] MEDS: ZINC SULFATE 220 MG CAP PO SCH ×2 (14:48→22:02)
--- NOTE | 2021-07-03 16:47 | Progress Note ---
Assessment and Plan Assessment and Plan - Patient Problems (1) Acute pancreatitis Current Visit: Yes Status: Acute Plan to address problem: Patient CT of abdomen and pelvis consistent with acute pancreatitis Clear liquids (2) Hyperkalemia Current Visit: Yes Status: Acute Plan to address problem: Resolved (3) Obesity hypoventilation syndrome Current Visit: Yes Status: Acute Plan to address problem: Needs to lose a lot of weight and also follow-up with Dr. Null the bariatric surgeon (4) Acute kidney injury Current Visit: No Status: Acute Plan to address problem: Improved Vasomotor nephropathy (5) Diabetes Current Visit: Yes Status: Acute Plan to address problem: Consistent carbohydrate diet, Accu-Chek, insulin protocol, hypoglycemia protocol. (6) CHF (congestive heart failure) Current Visit: Yes Status: Acute Qualifiers: Heart failure chronicity: chronic Plan to address problem: Balanced diet, fluid restriction, monitor urine output every shift, blood pressure control, diuresis, supplemental oxygen. (7) DVT prophylaxis Current Visit: No Status: Acute Plan to address problem: SCDs bilateral lower extremities while in bed, patient is ambulatory. Subjective Date of service: 07/03/21 Principal diagnosis: Acute pancreatitis Interval history: 51 YO Male with Obesity Hypoventilation Syndrome, HTN, DM, CKD, OA, Gout, CHF presents to ED for evaluation. Patient reported "my stomach hurts". Patient states that he has experienced abdominal pain over the past 3 days with persistently worsening symptoms over the same timeframe. Patient states that pain is 5/10, constant, localized to the epigastric area, radiates to the back, associated with nausea, associated with multiple episodes of vomiting.patient transported to [facility] via private vehicle for further care and evaluation of the aforementioned symptoms. The patient was seen and evaluated in the emergency department. All lab and imaging studies reviewed. The patient was found to have MARY with ATN, acute pancreatitis, as well as hyperkalemia. Patient admitted to medical floor due to increased risk of worsening symptoms. Patient treated with bowel rest and IV fluid resuscitation therapy. Prior admission on 12/22/2020 reviewed. All medication listed at time of admission has been reconciled. 07/02/2021 Still in pain Patient is n.p.o. 07/03/2021 Patient on clear liquids Recheck amylase and lipase Objective - Constitutional Vitals: Vital Signs - 12hr 07/03/21 07/03/2121 05:34 07:44 07:59 Temperature 97.5 F L Pulse Rate 66 51 L Respiratory 18 Rate Blood Pressure 127/72 138/71 O2 Sat by Pulse 100 98 Oximetry 07/03/21 07/03/21 07/03/21 11:39 11:50 16:31 Temperature 97.4 F L 97.8 F Pulse Rate 60 55 L Respiratory 18 18 18 Rate Blood Pressure 109/63 127/78 O2 Sat by Pulse 100 100 Oximetry General appearance: Present: mild distress, well-nourished - EENT Eyes: PERRL, EOM intact ENT: hearing intact, clear oral mucosa Ears: bilateral: normal - Neck Neck: supple, normal ROM - Respiratory Respiratory effort: normal Respiratory: bilateral: CTA - Breasts Breasts: normal - Cardiovascular Heart rate: 78 Rhythm: regular Heart Sounds: Present: S1 & S2. Absent: gallop, rub Extremities: no ischemia, pulses intact, No edema, normal color, Full ROM - Gastrointestinal General gastrointestinal: Present: soft, tender, non-distended, normal bowel sounds - Genitourinary Male genitourinary: normal - Integumentary Integumentary: clear, warm, dry - Musculoskeletal Musculoskeletal: 1, strength equal bilaterally - Neurologic Neurologic: moves all extremities - Psychiatric Psychiatric: memory intact, appropriate mood/affect, intact judgment & insight - Labs CBC & Chem 7: 07/01/21 07:32 07/04/21 04:00 Labs: Abnormal lab results 07/02/21 Range/Units 20:41 POC Glucose 117 H (70-105) mg/dL
[2021-07-04] MEDS: oxyCODONE /ACETAMINOPHEN 5-325MG TAB PO PRN (04:05)
[2021-07-04] MEDS: hydrALAZINE 25 MG TAB PO SCH (05:35)
[2021-07-04 07:07] LABS: Albumin 3.2 g/dL (3.9-5); Calcium 8.3 mg/dL (8.4-10.2)
[2021-07-04] MEDS: ZINC SULFATE 220 MG CAP PO SCH (09:36)
[2021-07-04] MEDS: APIXABAN 2.5 MG TAB PO SCH (09:37)
[2021-07-04] MEDS: ASPIRIN 81 MG TAB CHEW PO SCH (09:37)
[2021-07-04] MEDS: TORSEMIDE 100 MG TAB PO SCH (09:37)
[2021-07-04] MEDS: CHOLECALCIFEROL (VIT D3) 5,000 UNIT TAB PO SCH (09:37)
[2021-07-04] MEDS: ASCORBIC ACID 500 MG TAB PO SCH (09:37)
[2021-07-04] MEDS: SODIUM BICARBONATE 650 MG TAB PO SCH (09:37)
[2021-07-04] MEDS: allopurinoL 100 MG TAB PO SCH (09:37)
[2021-07-04] MEDS: FOLIC ACID 1 MG TAB PO SCH (09:37)
[2021-07-04] MEDS: ISOSORBIDE DINITRATE 20 MG TAB PO SCH (09:38)
[2021-07-04] MEDS: carvediloL 6.25 MG TAB PO SCH (09:40)
[2021-07-04 09:41] VITALS: BP 146/75
--- NOTE | 2021-07-04 10:55 | Discharge Summary ---
Providers - Providers Date of Admission: 06/30/21 12:18 Date of discharge: 07/04/21 Attending physician: KATERIN PATEL Hospitalization Condition: Stable Hospital course: Subjective Date of service: 07/04/21 Principal diagnosis: Acute pancreatitis Interval history: 51 YO Male with Obesity Hypoventilation Syndrome, HTN, DM, CKD, OA, Gout, CHF presents to ED for evaluation. Patient reported "my stomach hurts". Patient states that he has experienced abdominal pain over the past 3 days with persistently worsening symptoms over the same timeframe. Patient states that pain is 5/10, constant, localized to the epigastric area, radiates to the back, associated with nausea, associated with multiple episodes of vomiting.patient transported to [facility] via private vehicle for further care and evaluation of the aforementioned symptoms. The patient was seen and evaluated in the emergency department. All lab and imaging studies reviewed. The patient was found to have MARY with ATN, acute pancreatitis, as well as hyperkalemia. Patient admitted to medical floor due to increased risk of worsening symptoms. Patient treated with bowel rest and IV fluid resuscitation therapy. Prior admission on 12/22/2020 reviewed. All medication listed at time of admission has been reconciled. 07/02/2021 Still in pain Patient is n.p.o. 07/03/2021 Patient on clear liquids Recheck amylase and lipase 07/04/2021 Abdominal pain is improved Patient given clear liquids well with 3 days to 4 days Patient to be discharged on Ativan and Percocet. Patient counseled about alcoholism. Ativan as needed for alcoholism. Assessment and Plan - Patient Problems (1) Acute pancreatitis Current Visit: Yes Status: Acute Plan to address problem: Amylase and lipase and near normalized. (2) Hyperkalemia Current Visit: Yes Status: Acute Plan to address problem: Resolved (3) Obesity hypoventilation syndrome Current Visit: Yes Status: Acute Plan to address problem: Needs to lose a lot of weight and also follow-up with Dr. Null the bariatric surgeon (4) Acute kidney injury Current Visit: No Status: Acute Plan to address problem: Improved Vasomotor nephropathy (5) Diabetes Current Visit: Yes Status: Acute Plan to address problem: Consistent carbohydrate diet, Accu-Chek, insulin protocol, hypoglycemia protocol. (6) CHF (congestive heart failure) Current Visit: Yes Status: Acute Qualifiers: Heart failure chronicity: chronic Plan to address problem: Balanced diet, fluid restriction, monitor urine output every shift, blood pressure control, diuresis, supplemental oxygen. (7) DVT prophylaxis Current Visit: No Status: Acute Plan to address problem: SCDs bilateral lower extremities while in bed, patient is ambulatory. Disposition: 01 HOME / SELF CARE / HOMELESS Final Discharge Diagnosis (Prints w/discharge instructions): Acute pancreatitis. Hyperkalemia. Obesity hypoventilation syndrome. Acute kidney injury. Type 2 diabetes. CHF Time spent for discharge: 35 minutes - Discharge Diagnoses (1) Acute pancreatitis Status: Acute (2) Diabetes Status: Acute (3) Hyperkalemia Status: Acute (4) Hypertension Status: Acute (5) Vasomotor nephropathy Status: Acute (6) CHF (congestive heart failure) Status: Acute Qualifiers: Heart failure chronicity: chronic Core Measure Documentation - Palliative Care Palliative Care/ Comfort Measures: Not Applicable - Core Measures Any of the following diagnoses?: none Exam - Constitutional Vitals: Temp Pulse Resp BP Pulse Ox 97.6 F 62 18 146/75 95 07/04/21 04:23 07/04/21 09:40 07/04/21 07:00 07/04/21 09:40 07/04/21 07:00 General appearance: Present: no acute distress, well-nourished - EENT Eyes: Present: PERRL ENT: hearing intact, clear oral mucosa - Neck Neck: Present: supple, normal ROM - Respiratory Respiratory effort: normal Respiratory: bilateral: CTA - Cardiovascular Heart rate: 78 Rhythm: regular Heart Sounds: Present: S1 & S2. Absent: rub, click - Extremities Extremities: pulses symmetrical, No edema Peripheral Pulses: within normal limits - Abdominal General gastrointestinal: Present: soft, non-tender, non-distended, normal bowel sounds Male genitourinary: Present: normal - Integumentary Integumentary: Present: clear, warm, dry - Musculoskeletal Musculoskeletal: gait normal, strength equal bilaterally - Psychiatric Psychiatric: appropriate mood/affect, intact judgment & insight - Neurologic Neurologic: CNII-XII intact, moves all extremities Plan Activity: no restrictions Diet: clear liquids Follow up with: ELOY MAGALLANES [Other] - 3-5 Days
== END 2021-07-04 12:24 | disposition home or self-care (01) | DRG 438 ==
LOC: ED 12:59 → 3B-SURG 06-30 12:18 → 4A 07-02 18:38
PROVIDERS: ADMIT Internal Medicine; ATTEND Internal Medicine
DX: K85.90 Acute pancreatitis without necrosis or infection, unspecified (principal); N17.0 Acute kidney failure with tubular necrosis; E66.2 Morbid (severe) obesity with alveolar hypoventilation; I13.0 Hypertensive heart and chronic kidney disease with heart failure and stage 1 through stage 4 chronic kidney disease, or unspecified chronic kidney disease; E87.5 Hyperkalemia; Z71.3 Dietary counseling and surveillance; I50.9 Heart failure, unspecified; Z79.4 Long term (current) use of insulin; Z79.899 Other long term (current) drug therapy; M19.90 Unspecified osteoarthritis, unspecified site; M10.9 Gout, unspecified; Z79.01 Long term (current) use of anticoagulants; E11.22 Type 2 diabetes mellitus with diabetic chronic kidney disease; N18.9 Chronic kidney disease, unspecified; Z68.39 Body mass index [BMI] 39.0-39.9, adult
CPT/HCPCS: 36415; 74176; 76705; 80053; 81001; 82150; 82962; 83690; 85025; G0378; J1170; J2270; J2405; J7030

== ENCOUNTER 2022-03-23 08:38 | Day surgery (SDC) | payer MEDICAID ==
[~2022-03-23 08:38] MED LIST: SODIUM CHLORIDE 0.9% 1000 ML 1,000 ML IV SCH
--- NOTE | 2022-03-23 09:21 | Anesthesia Consultation ---
Anesthesia Consult and Med Hx Date of service: 03/23/22 - Airway Anesthetic Teeth Evaluation: Poor ROM Head & Neck: Adequate Mental/Hyoid Distance: Adequate Mallampati Class: Class III Intubation Access Assessment: Possibly Difficult - Pulmonary Exam CTA: Yes - Cardiac Exam Cardiac Exam: RRR - Pre-Operative Health Status ASA Pre-Surgery Classification: ASA3 Proposed Anesthetic Plan: MAC - Pulmonary Hx Smoking: No Hx Asthma: No COPD: No Hx Pneumonia: No Hx Sleep Apnea: No - Cardiovascular System Hx Hypertension: Yes Hx Coronary Artery Disease: Yes Hx Heart Attack/AMI: No - Central Nervous System Hx Seizures: Yes CVA: Yes (TIA. ) Hx Psychiatric Problems: No - Endocrine Hx Renal Disease: Yes Hx End Stage Renal Disease: No - Other Systems Hx Alcohol Use: Yes Hx Obesity: Yes
--- NOTE | 2022-03-23 09:22 | Anesthesia Day of Surgery ---
Anesthesia Day of Surgery - Day of Surgery Patient Examined: Yes Patient H&P Reviewed: Yes Patient is NPO: Yes
[2022-03-23] MEDS ORDERED: propofoL 200 MG/20 ML VIAL IV ONE ×2 (09:26→09:38)
[2022-03-23] MEDS ORDERED: MIDAZOLAM 2 MG/2 ML INJ ONE (09:36)
--- NOTE | 2022-03-23 09:57 | Short Stay Summary ---
Short Stay Documentation Date of service: 03/23/22 Narrative H&P: The patient presents for routine screening colonoscopy with no prior studies and for diagnostic EGD for epigastric pain. - History Past Medical History: diabetes, heart failure, hypertension, other (Gout) Past Surgical History: No surgical history Social history: , lives with family - Allergies and Medications Current Medications: Allergies No Known Allergies Allergy (Unverified 01/19/20 19:36) Home Medications Medication Instructions Recorded Confirmed Last Taken Type Cholecalciferol (Vitamin D3) 5,000 unit PO DAILY #30 tablet 12/30/20 Unknown Rx [Vitamin D3] Apixaban [Eliquis] 2.5 mg PO Q12HR #60 tablet 07/04/21 Unknown Rx Ascorbic Acid [Vitamin C] 1,000 mg PO BID #60 tablet 07/04/21 Unknown Rx Aspirin [Aspirin BABY CHEW TAB] 81 mg PO DAILY #100 07/04/21 Unknown Rx Folic Acid [Folvite] 1 mg PO QDAY #30 07/04/21 Unknown Rx Insulin Glargine [Lantus VIAL] 15 unit SUB-Q QHS 30 Days units 07/04/21 Unknown Rx Isosorbide Dinitrate [Isordil] 20 mg PO TID #90 tablet 07/04/21 Unknown Rx LORazepam [Ativan] 1 mg PO TID PRN #30 tablet 07/04/21 Unknown Rx Lispro Insulin [HumaLOG] 5 unit SQ TID 30 Days units 07/04/21 Unknown Rx Potassium Chloride [K-Dur] 40 meq PO QDAY 30 Days #30 tablet 07/04/21 Unknown Rx Sodium Bicarbonate 650 mg PO TID #90 tablet 07/04/21 Unknown Rx Sodium Bicarbonate 650 mg PO TID #90 tablet 07/04/21 Unknown Rx Torsemide [Demadex] 100 mg PO QDAY #30 tablet 07/04/21 Unknown Rx Zinc Sulfate 220 mg PO BID #60 capsule 07/04/21 Unknown Rx allopurinoL [Zyloprim] 100 mg PO QDAY #30 tablet 07/04/21 Unknown Rx carvediloL [Coreg] 6.25 mg PO BID #60 tablet 07/04/21 Unknown Rx hydrALAZINE [Apresoline TAB] 25 mg PO Q8HR #90 tablet 07/04/21 Unknown Rx oxyCODONE /ACETAMINOPHEN [Percocet 1 tab PO Q12H PRN #24 tablet 07/04/21 Unknown Rx 5/325 mg] Active Medications Sodium Chloride (Nacl 0.9% 1000 Ml) 1,000 mls @ 50 mls/hr IV DIRECT AGUS Stop: 03/23/22 20:00 - Physical exam General appearance: no acute distress, well-nourished, obese Integumentary: no rash, no growths, no abnormal pigmentation HEENT: Atraumatic, PERRLA, EOMI Lungs: Clear to auscultation Breasts: deferred Heart: Regular rate, Normal S1, Normal S2, No murmurs Gastrointestinal: normoactive bowel sounds, no distended, no masses, no guarding, no organomegaly, obese Male Genitourinary: deferred Rectal Exam: normal rectal tone, no tenderness, no mass Extremities: no ischemia, pulses intact, pulses symmetrical, No edema, normal temperature, normal color, Full ROM Neurological: Normal gait, Normal speech, Strength at 5/5 X4 ext, Normal tone, Sensation intact, Cranial nerves 3-12 NL - Brief post op/procedure progress note Date of procedure: 03/23/22 Findings: see dictations Estimated blood loss: none Pathology: list (antral biopsies for h pylori) Specimen disposition: to lab Condition: stable - Disposition Condition at discharge: Good Disposition: 01 HOME / SELF CARE / HOMELESS - Discharge Diagnoses (1) Epigastric pain Status: Acute (2) Colon cancer screening Status: Acute Short Stay Discharge Plan Activity: other (no driving for 24 hours) Weight Bearing Status: Full Weight Bearing Diet: diabetic Follow up with: ELVER ABBOTT [Primary Care Provider] - 7 Days
--- NOTE | 2022-03-23 10:00 | Operative Report ---
Operative Report Operative Report: Date of procedure: 03/23/2022 Preprocedure diagnosis: Colon cancer screening, average risk. No prior studies. Post procedure diagnosis: Few scattered diverticula, otherwise normal study. Procedure: Colonoscopy to the cecum Endoscopist: Dr. Bowie Anesthesia: Monitored anesthesia care per anesthesia department Estimated blood loss: 0 Medications: Monitored anesthesia care. See separate report by anesthesia for details. After careful discussion of the nature and purpose of the procedure as well as details of the technique risks benefits and alternatives the patient gave consent. Please see recent history and physical from the office. The patient was placed in the left lateral decubitus position and medicated per anesthesia. A rectal exam was performed sphincter tone was normal there were no masses palpable. The [employer] 570 scope was passed transanally and advanced under continuous direct vision without difficulty to the cecum. The colon was well prepared. The cecum was normal. The ascending colon was normal and on forward and retroflexed views. There were few scattered diverticula in the ascending colon and sigmoid colon the transverse colon, descending colon, and sigmoid colon were otherwise normal. The rectum was normal on forward and retroflexed views. The procedure was well-tolerated overall and the patient was observed in recovery. Conclusions: Few scattered diverticula, otherwise normal colon to the cecum.. Plan: Repeat colonoscopy in 10 years, sooner if clinically indicated. Signed electronically: Gato Bowie M.D.
--- NOTE | 2022-03-23 10:00 | Post Anesthesia Evaluation ---
- Post Anesthesia Evaluation Patient Participated: Yes Airway Patent: Yes Stable Respiratory Function: Yes Nausea/Vomiting: No Temp > 96.8F: Yes Pain Manageable: Yes Adequeate Hydration: Yes Anesthesia Complications: No Block Receding Appropriately: Not Applicable Patient on Ventilator: No
--- NOTE | 2022-03-23 10:02 | Operative Report ---
Operative Report Operative Report: Date of procedure: 03/23/2020 Procedure: Esophagogastroduodenoscopy with biopsy for H. pylori Preprocedure diagnosis: History epigastric pain Post procedure diagnosis: Pyloric gastritis and erosive bulbar duodenitis. Endoscopist: Dr. Bowie Anesthesia: Monitored anesthesia care per anesthesia department Medications: Propofol and Versed per anesthesia. Estimated blood loss: 0. After careful discussion of the nature and purpose of the procedure as well as details the technique risks benefits and alternatives consent was obtained. The patient was placed in the left lateral decubitus position and medicated per anesthesia. The tip of the [employer] 570 video scope was passed per orum under direct vision into the esophagus and advanced into the stomach and descending duodenum. The descending duodenum and pylorus were symmetrical and normal. There was moderate erosive duodenal bulb inflammation. The scope was withdrawn into the stomach and the stomach then gently insufflated with air. The antrum revealed patchy erythema and a few punctate erosions. Biopsies were taken for H. pylori. The stomach was further insufflated and the scope was then retroflexed and partially withdrawn. The cardia, fundus, and body of the stomach were within normal limits and easily distensible.The scope was then withdrawn in the forward position. The esophagogastric junction was at. The esophageal body was normal throughout. The procedure was was well tolerated and the patient was observed in recovery. Impressions: Moderate erosive gastritis in the antrum and erosive bulbar duodenitis. Plan: Await biopsies for H. pylori. Avoidance of NSAIDs. Electronically signed: Gato Bowie MD
[2022-03-23 10:25] VITALS: BP 136/58
== END 2022-03-23 10:35 | disposition home or self-care (01) ==
LOC: GIO 08:38
PROVIDERS: ATTEND Internal Medicine Gastroenterology
DX: Z12.11 Encounter for screening for malignant neoplasm of colon (principal); R10.13 Epigastric pain; K57.30 Diverticulosis of large intestine without perforation or abscess without bleeding; K29.80 Duodenitis without bleeding; K29.50 Unspecified chronic gastritis without bleeding; B96.81 Helicobacter pylori [H. pylori] as the cause of diseases classified elsewhere; I11.0 Hypertensive heart disease with heart failure; I50.9 Heart failure, unspecified; E11.9 Type 2 diabetes mellitus without complications; G93.40 Encephalopathy, unspecified; I25.10 Atherosclerotic heart disease of native coronary artery without angina pectoris; E78.00 Pure hypercholesterolemia, unspecified; E66.9 Obesity, unspecified; M19.90 Unspecified osteoarthritis, unspecified site; M10.9 Gout, unspecified; Z72.89 Other problems related to lifestyle; Z98.890 Other specified postprocedural states; Z68.38 Body mass index [BMI] 38.0-38.9, adult; Z79.899 Other long term (current) drug therapy; Z79.82 Long term (current) use of aspirin; Z86.73 Personal history of transient ischemic attack (TIA), and cerebral infarction without residual deficits
CPT/HCPCS: 43239; 45378; 82962; 88305; 88342; J2250; J2704; J7030